=== PATIENT | male | born 1975 | race Caucasian/White ===

== ENCOUNTER 2017-04-13 11:13 | Inpatient (IN) | payer BC, MEDICARE ==
[~2017-04-13] VITALS: Ht 165.1 cm; Wt 108.4 kg
[~2017-04-13 11:13] MED LIST: ASPIR 8181 MG PO; AUGMENTIN 500-1 EACH PO; AUGMENTIN 875875 MG PO; CARVEDILOL12.5 MG PO; CATAPRES-TTS 20.2 MG TOP; CATAPRES0.2 MG; CEFDINIR300 MG; CIPRO250 M1 PO; CIPRO500 M1 PO; CLONIDINE0.1 PO; COLACE100 MG PO; CYCLOBENZAPRINE5 MG PO; DARVOCET-N 1001 EACH PO; DIABETA 5MG TABL5 MG PO; DOXYCYCLINE 10100 MG PO; FIBERCON625 M1 PO; FLEXERIL PO; GLUCOPHAGE1000 MG PO; HYDROCHLOROTHIA25 M1 PO; LASIX 80 MG TAB80 MG PO; LEVAQUIN 250 M250 MG PO; LISINOPRIL10 MG PO; LISINOPRIL20 MG PO; MACROBID 100 M100 M2 PO; MEDROLDOSEPACK; MEDROLDOSEPACK PO; MIRALAX17 GM PO; NOHOMEMEDICATIONS; NORCO 5-325 TA1 EAC1 PO; NORCO 5-325 TA1 EACH PO; NORVASC10 MG PO; PHOSLO667 M1 PO; PREDNISONE 20 M20 MG PO; RENAL CAPS SOFTG1 MG PO; RENVELA800 MG PO; ROBAXIN500 MG PO; TESSALON PERLE100 M1 PO; TRAMADOL 50 MG50 MG PO; VAN500AD IVPB; VELPHORO500 MG PO; VENTOLIN HFA 1818 GM INH; ZPAK PO
[2017-04-13 11:20] VITALS: BP 191/93
[2017-04-13 12:30] LABS: HEMATOCRIT 34.3 % (42.0-52.0); HEMOGLOBIN 11.1 gm/dL (14.0-18.0); MCH 29.3 pg (26.0-34.0); MCHC 32.4 g/dL (28.0-37.0); MCV 90.6 fL (80.0-100.0); MPV 9.2 fl. (7.2-11.1); NUCLEATED RBCS 0 /100WBC; PLATELET COUNT* 220 thou/uL (150-400); RBC 3.78 mil/uL (4.50-6.00); RDW-CV 17.4 % (10.5-14.5); WBC 6.5 thou/uL (4.0-11.0)
[2017-04-13 12:37] LABS: ANION GAP 10 mmol/L (7-16); BUN 35 mg/dL (7-18); CALCIUM 8.8 mg/dL (8.5-10.1); CHLORIDE 95 mmol/L (98-107); CO2 33 mmol/L (21-32); GLUCOSE 126 mg/dL (70-99); SODIUM 138 mmol/L (136-145)
[2017-04-13 12:44] LABS: ALBUMIN 4.1 g/dL (3.4-5.0); ALKALINE PHOSPHATASE 70 U/L (46-116); LIPASE 165 U/L (73-393); SGOT 40 U/L (15-37); SGPT 46 U/L (30-65); TOTAL BILIRUBIN 0.5 mg/dL (<0.1-1.0); TOTAL PROTEIN 8.5 g/dL (6.4-8.2)
[2017-04-13 12:57] LABS: TROPONIN-I LEVEL <0.06 ng/mL (<0.06)
[2017-04-13 13:00] LABS: ABSOLUTE EOSINOPHILS 0.1 thou/uL (0.0-0.7); ABSOLUTE MONOCYTES 1.2 thou/uL (0.0-1.2); ABSOLUTE NEUTROPHILS 4.3 thou/uL (1.6-8.1); PLATELET ESTIMATE ADEQUATE
[2017-04-13 14:22] VITALS: BP 172/86
[2017-04-13 14:39] VITALS: BP 202/55
[2017-04-13 19:30] VITALS: BP 180/94
[2017-04-14] VITALS: BP 137/80
[2017-04-14 04:23] VITALS: BP 167/96
[2017-04-14 08:00] VITALS: BP 187/90
[2017-04-14 11:30] VITALS: BP 174/91
--- NOTE | 2017-04-14 13:35 | EKG ---
[place] [address] ELECTROCARDIOGRAM REPORT Name: MEDNELSAMANTA DELANEY Room: [address] ADM IN .R.#: [id number] Admission: 04/13/17 Attend Phys: Deni Amato, Discharge: Date of : 77 Report #: [id number] THIS REPORT FOR: //name// [facility] ED Test Date: 2017-04-13 Test Time: 12:08:27 Pat Name: SAMANTA OGLESBY Department: Room: [facility] Gender: M Surgery Tech: MIKY : 1975 Requested By: Mary Hopkins Order Number: [id number] MD: Marky Larry Measurements Intervals [place] Rate: 93 P: 44 [place]: 173 QRS: -6 QRSD: 109 T: 64 QT: 387 QTc: 482 Interpretive Statements Sinus rhythm ST elev, probable normal early repol pattern Borderline prolonged QT interval Compared to ECG 12/31/2016 02:43:41 Ventricular premature complex(es) no longer present Electronically Signed On 04-14-2017 13:35:22 MIX HOUSE TENDER by Marky Larry [email or web address] <ELECTRONICALLY SIGNED> By: Marky Larry MD, FACC 04/14/17 1335 1208 1208 Marky Larry MD, [facility] /EPI
[2017-04-14 16:10] VITALS: BP 176/77
[2017-04-14 20:50] VITALS: BP 168/94
[2017-04-15] VITALS: BP 156/60
[2017-04-15 04:00] VITALS: BP 148/71
[2017-04-15 08:00] VITALS: BP 164/86
[2017-04-15 12:03] VITALS: BP 152/81
[2017-04-15 13:40] LABS: CALCIUM 7.8 mg/dL (8.5-10.1); POTASSIUM 4.9 mmol/L (3.5-5.1)
[2017-04-15 13:42] LABS: CREATININE 11.6 mg/dL (0.6-1.3)
[2017-04-15 21:07] VITALS: BP 158/75
[2017-04-16] VITALS: BP 162/66
[2017-04-16 04:00] VITALS: BP 157/73
[2017-04-16 07:30] VITALS: BP 162/80
--- NOTE | 2017-04-16 09:19 | CON ---
[address] [address] CONSULTATION Name: SAMANTA OGLESBY Room: [address] IN ..#: [id number] Admission: 04/13/17 Attend Phys: Deni Amato, Discharge: Date of : 77 Report #: [id number] THIS REPORT FOR: //name// CC: Deni Shannon DATE OF SERVICE: 04/15/2017 HISTORY OF PRESENT ILLNESS: The patient is a 41-year-old male who I was asked to see in the hospital today after he complained of a cough. The history is obtained from the patient and his who was present. He has a long history of hypertension, diabetes, and hyperlipidemia. He is also morbidly obese, standing 5 feet 5 and weighing 250 pounds. Because of diabetes he has developed end-stage renal disease and has been on dialysis. He has a fistula in his left arm. Recently it clotted and he required placement of temporary dialysis catheter. For the past few weeks he has had a cough and nasal congestion, sore throat. He was placed on a Z-WILLIAM recently. However, he started having increasing shortness of breath, so he came to the hospital 2 days ago. I was asked to see him for further evaluation and treatment. He denies a history of coronary artery disease. However, he states that he is now being considered for renal transplant. He underwent a stress test that apparently was abnormal. He saw a healthcare advisory services manager at [facility] and is scheduled to have a heart catheterization electively in the near future. He denies any palpitations or syncope. PAST MEDICAL HISTORY: Otherwise significant for eye surgery, hip surgery. MEDICATIONS: On admission consist of carvedilol, aspirin, Lasix, amlodipine, clonidine. ALLERGIES: He has no known drug allergies. FAMILY HISTORY: Negative for heart disease. SOCIAL HISTORY: He is . He and his live in [place]. 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 Rarely smokes, rarely drinks alcohol. He does have a history of illicit drug use including methamphetamine, cocaine and marijuana, although he no longer abuses drugs. REVIEW OF SYSTEMS: He apparently was told he had a small stroke in the past. No history of asthma. No history of peptic ulcer disease, liver disease, cancer, chronic skin condition. PHYSICAL EXAMINATION: GENERAL: Revealed a large middle-aged male lying in bed, [place] [address] CONSULTATION Name: SAMANTA OGLESBY Room: [address]#: [id number] Admission: 04/13/17 Attend Phys: Deni Amato, Discharge: Date of : 77 Report #: [id number] VITAL SIGNS: He had a blood pressure of 140/70, pulse is 80s, afebrile. HEENT: He was anicteric. Conjunctivae pink. Mucous membranes moist. NECK: Veins difficult to assess due to obesity. CHEST: Clear to auscultation. CARDIAC: Regular rate and rhythm. ABDOMEN: Obese, soft, nontender. EXTREMITIES: No pitting edema. Dorsalis pedis pulse 2+ bilaterally. SKIN: Warm, dry. NEUROLOGIC: Nonfocal. LYMPH: No adenopathy. MUSCULOSKELETAL: No joint effusion. LABORATORY DATA: His ECG shows a sinus rhythm, no ST or T-wave change. His workup, he actually had an echocardiogram done in May of this year that was a transesophageal echocardiogram because of MRSA that showed no evidence of shunt, ejection fraction 55%, no thrombus, structurally normal valves. Previous echocardiogram in 2016 here at [facility] showed ejection fraction 45%, left ventricular hypertrophy, left atrial enlargement, mild mitral regurgitation, small pericardial effusion. His x-rays on admission included a portable chest x-ray that showed cardiomegaly, mild pulmonary vascular congestion. He had lab work, sodium 138, creatinine 7, glucose 126. Liver function studies were normal. Troponin 0.06. BNP 24,000. White blood cell count 6.5, hemoglobin 11.1. IMPRESSION AND RECOMMENDATIONS: 1. Acute on chronic diastolic heart failure. Recommend removing fluid by dialysis. I would recommend better treatment of his hypertension. The patient is currently on a calcium zehra, beta zehra and clonidine patch. 2. End-stage renal disease. The patient on dialysis. 3. Diabetes. 4. History of illicit drug use. The patient no longer abuses drugs. 5. Obesity. <ELECTRONICALLY SIGNED> By: Marky Larry MD, [facility] 04/16/17 0919 1123 [id number] Larry MD, FAC /nt
[2017-04-16] MEDS ORDERED: LEVAQUIN 500 M500 M3 PO (10:00)
--- NOTE | 2017-04-16 11:23 | CON ---
[address] [address] CONSULTATION Name: MENDELSAMANTA BALTAZAR Room: [address] IN .R.#: [id number] Admission: 04/13/17 Attend Phys: Deni Amato, Discharge: Date of : 77 Report #: [id number] THIS REPORT FOR: //name// CC: Deni Shannon CONSULTING PHYSICIAN: Deni Amato MD REASON FOR CONSULTATION: End-stage kidney disease. HISTORY OF PRESENT ILLNESS: A 41-year-old gentleman admitted with shortness of breath, wheezing for the past 2 weeks. He was treated as an outpatient with a Z-WILLIAM, but did not improve. He is currently being evaluated for a kidney transplant and is to have an elective cardiac catheterization as part of that workup process. He has been seen by Cardiology here and had some evidence of acute on chronic diastolic heart failure and evidence of fluid overload. He was dialyzing on consecutive days as an outpatient in order to help get him down to his dry weight. He did miss his dialysis on Saturday because he was not feeling well and was in the hospital. Presently he does not have any other complaints. REVIEW OF SYSTEMS: Constitutional, psych, heme, eyes, ENT, respiratory, cardiac, GI, , endocrine, all negative except as documented above. PAST MEDICAL HISTORY: End-stage kidney disease, on in-center hemodialysis, was previously on home hemodialysis, diabetes, hypertension, dyslipidemia. PAST SURGICAL HISTORY: History of right hip fracture. SOCIAL HISTORY: No tobacco. FAMILY HISTORY: His grandmother had kidney disease and was on dialysis. MEDICATIONS: Reviewed. PHYSICAL EXAMINATION: VITAL SIGNS: Blood pressure 152/81, pulse 79, temperature 36.3. GENERAL: No acute distress. EYES: Extraocular movements intact. EARS: Externally normal. CARDIOVASCULAR: Regular rate. LUNGS: Diminished breath sounds. LYMPHATICS: Positive edema. PSYCHIATRIC: Awake, alert. LABORATORY DATA: White cell count 6.5, hemoglobin 11.1, platelets 220. Labs have not been done today. Previous lab work showed sodium 138, potassium 4, chloride 95, bicarbonate 33, BUN 35, creatinine 7, glucose 126, calcium 8.8. [place] [address] CONSULTATION Name: SAMANTA OGLESBY Room: [address]#: [id number] Admission: 04/13/17 Attend Phys: Deni Amato, Discharge: Date of : 77 Report #: [id number] ASSESSMENT AND PLAN: 1. End-stage kidney disease, hemodialysis Saturday, Saturday and Saturday. We will dialyze today and fluid as tolerated. 2. Fluid overload. We will ultrafilter with dialysis as tolerated. 3. History of hypertension. 4. History of diabetes. Thank you for requesting my opinion in the care and management of this patient. <ELECTRONICALLY SIGNED> By: Jovita Beckford MD 04/16/17 1123 1302 1711Abid Román Castrejon MD /nt
[2017-04-16 11:57] VITALS: BP 172/70
--- NOTE | 2017-04-16 17:44 | 2DMMODE ---
[place] [address] 2 D/M-MODE ECHOCARDIOGRAM Name: SAMANTA OGLESBY DELANEY Room: [address] IN [facility]#: [id number] Admission: 04/13/17 Attend Phys: Deni Rojas Discharge: 04/16/17 Date of : 77 Date of Service: 04/16/17 1744 Report #: [id number] THIS REPORT FOR: //name// APPROVED REPORT Study performed: 04/16/2017 15:45:59 EXAM: Comprehensive 2D, Doppler, and color-flow Echocardiogram Patient Location: In-Patient Room #: [facility] Status: routine BSA: 2.13 HR: 78 bpm BP: 172/70 mmHg Rhythm: NSR Other Information Study Quality: Good Indications Congestive Heart Failure 2D Dimensions LVEF(%): 33.76 (>50%) IVSd: 15.80 (7-11mm) LVOT Diam: 21.04 (18-24mm) LVDd: 63.67 mm PWd: 11.49 (7-11mm) Ascending Ao: 31.20 (22-36mm) LVDs: 53.20 (25-40mm) Aortic Root: 33.57 mm Smith's LVEF: 33.76 % Volumes Left Atrial Volume (Systole) LA ESV Index: 64.70 mL/m2 Aortic Valve AoV Peak Nam.: 1.26 m/s AO Peak Gr.: 6.39 mmHg LVOT Max P.78 mmHg AO Mean Gr.: 4.06 mmHg LVOT Mean P.94 mmHg LVOT Max V: 0.97 m/s AO V2 VTI: 27.73 cm LVOT Mean V: 0.64 m/s NAMAN (VTI): 2.96 cm2 LVOT V1 VTI: 23.60 cm Mitral Valve E/A Ratio: 1.56 [place] [address] 2 D/M-MODE ECHOCARDIOGRAM Name: SAMANTA OGLESBY Room: [address] IN [facility].#: [id number] Admission: 04/13/17 Attend Phys: Deni Rojas Discharge: 04/16/17 Date of : 77 Date of Service: 04/16/17 1744 Report #: [id number] MV Decel. Time: 196.83 ms MV E Max Nam.: 1.03 m/s MV PHT: 57.08 ms MVA (PHT): 3.85 cm2 TDI E/Lateral E': 10.30 E/Medial E': 14.71 Medial E' Nam.: 0.07 m/s Lateral E' Nam.: 0.10 m/s Pulmonary Valve PV Peak Nam.: 0.83 m/s PV Peak Gr.: 2.76 mmHg Tricuspid Valve TR Peak Gr.: 26.73 mmHg RVSP: 31.00 mmHg Left Ventricle The left ventricle is normal size. There is normal LV segmental wall motion. Mild concentric left ventricular hypertrophy. Left ventricular systolic function is normal. The left ventricular ejection fraction is within the normal range. LVEF is 50-55%. The left ventricular diastolic function is normal. Right Ventricle The right ventricle is normal size. The right ventricular systolic function is normal. Atria Left atrium is severely dilated. The right atrium size is normal. Aortic Valve The aortic valve is normal in structure. No aortic regurgitation is present. There is no aortic valvular stenosis. Mitral Valve The mitral valve is normal in structure. Moderate mitral regurgitation. No evidence of mitral valve stenosis. Tricuspid Valve The tricuspid valve is normal in structure. Mild tricuspid regurgitation. The RVSP is 30-35 mmHg. Pulmonic Valve The pulmonary valve is normal in structure. Mild pulmonic [place] [address] 2 D/M-MODE ECHOCARDIOGRAM Name: SAMANTA OGLESBY Room: [address] IN M.R.#: [id number] Admission: 04/13/17 Attend Phys: Deni Rojas Discharge: 04/16/17 Date of : 77 Date of Service: 04/16/17 1744 Report #: [id number] Great Vessels The aortic root is normal in size. IVC is normal in size and collapses with >50% inspiration Pericardium Trace pericardial effusion. <Conclusion> LVEF is 50-55%. There is normal LV segmental wall motion. There is normal LV segmental wall motion. Mild concentric left ventricular hypertrophy. Trace pericardial effusion. There is no aortic valvular stenosis. No aortic regurgitation is present Moderate mitral regurgitation. No evidence of mitral valve stenosis. Mild tricuspid regurgitation. The RVSP is 30-35 mmHg. <ELECTRONICALLY SIGNED> By: Michael Sarabia MD, FACC 04/16/17 1744 1744 1744 Michael Sarabia MD, FACC /INF
== END 2017-04-16 16:54 | disposition home or self-care (01) | DRG 291 ==
LOC: M.ERS 11:13 → M.2W 13:33 → M.TBA-ER 13:33 → M.2W 14:28
PROVIDERS: Internal Medicine Nephrology; Physician Assistant; ADMIT Family Medicine
PROC: 5A1D70Z Performance of Urinary Filtration, Intermittent, Less than 6 Hours Per Day (ICD-10-PCS; principal; 2017-04-15)
DX: I13.2 Hypertensive heart and chronic kidney disease with heart failure and with stage 5 chronic kidney disease, or end stage renal disease (principal); I50.43 Acute on chronic combined systolic (congestive) and diastolic (congestive) heart failure; N18.6 End stage renal disease; E11.22 Type 2 diabetes mellitus with diabetic chronic kidney disease; E78.5 Hyperlipidemia, unspecified; E66.01 Morbid (severe) obesity due to excess calories; J20.9 Acute bronchitis, unspecified; Z84.1 Family history of disorders of kidney and ureter; Z82.49 Family history of ischemic heart disease and other diseases of the circulatory system; Z86.14 Personal history of Methicillin resistant Staphylococcus aureus infection; Z99.2 Dependence on renal dialysis; Z68.39 Body mass index [BMI] 39.0-39.9, adult; Z79.899 Other long term (current) drug therapy

== ENCOUNTER → 2017-06-19 | Outpatient (CLI) | payer BC ==
[~2017-06-19] VITALS: Ht 165.1 cm; Wt 114.8 kg
[~2017-06-19] MED LIST changes: +CARDIZEM CD120 MG PO; +LEVAQUIN 500 M500 M3 PO; +LIPITOR10 MG PO; +PACERONE 200 M200 M1 PO; +VANCOMYCIN500 MG/VIA IV; +VANCOMYCIN750 MG/151 IV
[2017-06-19 08:06] LABS: HEMATOCRIT 33.5 % (42.0-52.0); HEMOGLOBIN 11.2 gm/dL (14.0-18.0); MCH 29.8 pg (26.0-34.0); MCHC 33.4 g/dL (28.0-37.0); MCV 89.1 fL (80.0-100.0); MPV 9.3 fl. (7.2-11.1); RBC 3.76 mil/uL (4.50-6.00); RDW-CV 17.2 % (10.5-14.5); WBC 9.4 thou/uL (4.0-11.0)
[2017-06-19 08:17] VITALS: BP 180/82
[2017-06-19 08:22] LABS: ANION GAP 14 mmol/L (7-16); BUN 80 mg/dL (7-18); CALCIUM 8.5 mg/dL (8.5-10.1); CHLORIDE 99 mmol/L (98-107); CO2 26 mmol/L (21-32); CREATININE 10.3 mg/dL (0.6-1.3); GLUCOSE 124 mg/dL (70-99); POTASSIUM 5.7 mmol/L (3.5-5.1); SODIUM 139 mmol/L (136-145)
[2017-06-19 08:26] LABS: ALBUMIN 3.9 g/dL (3.4-5.0); ALKALINE PHOSPHATASE 90 U/L (46-116); CHOLESTEROL 116 mg/dL (<200); HDL CHOLESTEROL 36 mg/dL (>40); INR 1.1; LDL CHOLESTEROL 68 mg/dL (<100); PROTIME 10.7 Seconds (9.20-11.50); SERUM ASSESSMENT Clear; SGOT 20 U/L (15-37); SGPT 28 U/L (30-65); TC:HDL 3.2 Ratio (Not establshd); TOTAL BILIRUBIN 0.4 mg/dL (<0.1-1.0); TOTAL PROTEIN 8.5 g/dL (6.4-8.2); TRIGLYCERIDE 62 mg/dL (<150); VLDL 12 mg/dL (<40)
[2017-06-19 10:31] LABS: CALCIUM 8.1 mg/dL (8.5-10.1); CREATININE 10.6 mg/dL (0.6-1.3)
[2017-06-19 10:32] LABS: POTASSIUM 6.4 mmol/L (3.5-5.1)
[2017-06-19 10:35] VITALS: BP 156/91
[2017-06-19 10:36] LABS: ALBUMIN 3.3 g/dL (3.4-5.0); TOTAL BILIRUBIN 0.5 mg/dL (<0.1-1.0); TOTAL PROTEIN 7.3 g/dL (6.4-8.2)
--- NOTE | 2017-06-19 10:51 | EKG ---
[place] [address] ELECTROCARDIOGRAM REPORT Name: SAMANTA OGLESBY Room: [facility]#: [id number] Admission: 06/19/17 Attend Phys: Marky Larry MD, F Discharge: Date of : 77 Report #: [id number] THIS REPORT FOR: //name// [facility] Test Date: 2017-06-19 Test Time: 08:05:21 Pat Name: SAMANTA OGLESBY Department: Room: Gender: Staff Attorney: : 1975 Requested By: Marky Larry Order Number: [id number] Garcia MD: Marky Larry Measurements Intervals [place] Rate: 78 P: 24 VT: 145 QRS: -6 QRSD: 105 T: 81 QT: 401 QTc: 457 Interpretive Statements Sinus rhythm Compared to ECG 04/13/2017 12:08:27 no change Electronically Signed On 06-19-2017 10:51:12 TRAINMAN by Marky Larry [email or web address] <ELECTRONICALLY SIGNED> By: Marky Larry MD, [facility] 06/19/17 1051 08 08 Marky Larry MD, FACC /EPI
[2017-06-19 11:07] VITALS: BP 192/83
[2017-06-19 11:18] VITALS: BP 180/83
--- NOTE | 2017-06-20 11:14 | CARD ---
[address] [address] CARDIAC CATH REPORT Name: SAMANTA OGLESBY Room: [facility] BurchFayeChanelFaye#: [id number] Admission: 06/19/17 Attend Phys: Marky Larry MD, F Discharge: Date of : 77 Report #: [id number] THIS REPORT FOR: //name// APPROVED REPORT Patient Details Patient Status: Out-Patient Room #: The patient is a 41 year-old male Event Personnel Marky Larry Senior Radiation Therapist, Renu Galvez RN RN, Deedee Langston RN Monitor, Eliazar Holder (R) Scrub Procedures Performed cathArt Access - R radial artery Left Heart Cath w/or w/o Coronaries Hemostasis with Hemoband Indication Positive stress test, Pre-op clearance Risk Factors Obesity, Hypertension Admission/Lab Medications/Medications given during procedure Heparin Unfract. Procedure Narrative The patient was brought electively to the Cardiac Catheterization Laboratory and was prepped and draped in a sterile manner. The right wrist was infiltrated with 1% Lidocaine subcutaneous anesthesia. A 6 fr sheath was inserted into the right radial artery. Coronary angiography was performed using coronary diagnostic catheters. The right coronary system was accessed and visualized with a Diagnostic catheter. The left coronary system was accessed and visualized with a Diagnostic catheter. The left ventricle was accessed and visualized with a Diagnostic catheter. Left ventriculogram was performed in CISNEROS projection. Closure device was deployed with a 6 Fr vascband. The patient tolerated the procedure well and there were no complications associated with the procedure. There was no hematoma. Intraoperative Conscious Sedation Fentanyl 50.0 mcg Versed 4 mg Fluoro Time: 3.6 minutes Dose: DAP 57767 cGycm2 1322 [place] [address] CARDIAC CATH REPORT Name: SAMANTA OGLESBY Room: [facility]#: [id number] Admission: 06/19/17 Attend Phys: Marky Larry MD, F Discharge: Date of : 77 Report #: [id number] Contrast Type and Amount: Visipaque 180 ml Coronary Angiography The patient's coronary anatomy is co- dominant. [place] Artery Percent Stenosis Left Main: 0 % Prox LAD: 0 % Mid/Distal LAD: 40 % Circumflex: 30 % RCA: 0 % Ramus: % Left Ventriculography The left ventricle is normal in size with normal contractility. The left ventricular ejection fraction is estimated to be 45-50%. Left ventricular wall motion abnormalities are not present. There is 1+ mitral insufficiency. Hemodynamics The aortic pressure is 129/78 mmHg with a mean of 102 mmHg. The left ventricular pressure is 115/27 mmHg with a mean of mmHg. The left ventricular end diastolic pressure is 30 mmHg. There was no gradient across the aortic valve upon pullback. Pullback from the left ventricle to the aorta revealed no gradient across the aortic valve. Conclusion 1. minimal cad 2. suspect false postivie nuclear stress test Recommendations Aggressive Medical Therapy <ELECTRONICALLY SIGNED> By: Marky Larry MD, FACC 06/20/17 1114 1114 1114Dkaz Larry MD, FAC /INF
--- NOTE | 2017-06-20 17:48 | H ---
[place] [address] HISTORY AND PHYSICAL Name: SAMANTA OGLESBY Room: [facility]#: [id number] Admission: 06/19/17 Attend Phys: Marky Larry MD, F Discharge: Date of : 77 Report #: [id number] THIS REPORT FOR: //name// CC: Tyesha Larry DATE OF SERVICE: 06/19/2017 HISTORY OF PRESENT ILLNESS: The patient is a 41-year-old male who was brought to the outpatient department to undergo diagnostic cardiac catheterization. The patient developed end-stage renal disease secondary to hypertension and diabetes several years ago. He had a fistula placed in the left arm. He has had previous clot in the fistula and had a temporary dialysis catheter placed one time. He was actually admitted to [place] in April with shortness of breath and cough. The patient is being considered for a kidney transplant at [facility]. As part of his pretransplant evaluation, he saw a rail track layer at [facility] and underwent a nuclear stress test apparently. This was abnormal. He was told he would need a cardiac catheterization prior to his renal transplant. I have been following the patient in the cardiology clinic here at [place]. The patient stays active at work. Denies history of myocardial infarction or chest pain. He does get short of breath if he exerts himself, but has had no palpitation, syncope, edema. The patient was told he would need to lose approximately 30 pounds prior to undergoing a kidney transplant. He recently saw a surgeon for possible bariatric surgery. However, before the surgery, the patient would require cardiac evaluation. Because of his abnormal stress test, I recommended he undergo cardiac catheterization. PAST MEDICAL HISTORY: Otherwise significant for eye surgery, hip surgery, fistula implantation. He has a history of hypertension, diabetes, glucose intolerance, sleep apnea. MEDICATIONS: Consists of amlodipine, Lipitor, carvedilol, clonidine patch, furosemide. He takes an aspirin a day. ALLERGIES: He has no known drug allergies. FAMILY HISTORY: Negative for heart disease. SOCIAL HISTORY: He is . He and his live in [place]. 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 Rarely smokes. Rarely drinks alcohol. History of illicit drug use including methamphetamine, cocaine, marijuana, although he no longer abuses drugs. REVIEW OF SYSTEMS: He does have a history of obesity and is currently 5 feet [address] [place] [address] HISTORY AND PHYSICAL Name: SAMANTA OGLESBY Room: [facility]#: [id number] Admission: 06/19/17 Attend Phys: Marky Larry MD, F Discharge: Date of : 77 Report #: [id number] inches and weighs 267 pounds with a BMI of 44. He was told he had a small stroke in the past. No history of asthma. He has sleep apnea. No history of peptic ulcer disease, liver disease, cancer, chronic skin condition, psychiatric illness. PHYSICAL EXAMINATION: GENERAL: Revealed a large young Latin-Malagasy male who appeared in no distress. VITAL SIGNS: Blood pressure 160/80, pulse is 80. Mucous members moist. HEENT: He is anicteric, conjunctiva pink. NECK: Veins do not appear distended. CHEST: Clear to auscultation. CARDIAC: Regular rate and rhythm. ABDOMEN: Obese, soft, nontender. EXTREMITIES: Had no edema. Dorsalis pedis pulse 3+ bilaterally. SKIN: Warm, dry. NEUROLOGIC: Nonfocal. LABORATORY DATA: Echocardiogram done in 03/2017 showed ejection fraction 50%. Left ventricular hypertrophy, trace pericardial effusion, moderate mitral regurgitation, mild tricuspid insufficiency. IMPRESSION AND RECOMMENDATIONS: 1. Abnormal nuclear stress test. Risk factors, coronary artery disease. No history of angina. Recommend cardiac catheterization prior to elective surgery. Discussed indications, alternatives and risks of the procedure with the patient and he agreed to proceed. 2. Hypertension. The patient is on a calcium zehra, clonidine, beta zehra. 3. Hyperlipidemia. The patient is on a statin drug. 4. End-stage renal disease. The patient is on dialysis. 5. Glucose intolerance. The patient no longer on insulin. 6. History of illicit drug use. The patient no longer abuses drugs. 7. Obesity. The patient is scheduled for bariatric surgery. I would hold off an elective surgery until after his cardiac catheterization. <ELECTRONICALLY SIGNED> By: Marky Larry MD, [facility] 06/20/17 1748 0824 [id number] Larry MD, FAC /nt
== END | disposition home or self-care (01) ==
LOC: M.CL 07:33
PROVIDERS: Internal Medicine Cardiovascular Disease
DX: I25.10 Atherosclerotic heart disease of native coronary artery without angina pectoris (principal); I13.2 Hypertensive heart and chronic kidney disease with heart failure and with stage 5 chronic kidney disease, or end stage renal disease; I50.9 Heart failure, unspecified; N18.6 End stage renal disease; E11.22 Type 2 diabetes mellitus with diabetic chronic kidney disease; E66.09 Other obesity due to excess calories; E78.5 Hyperlipidemia, unspecified; G47.33 Obstructive sleep apnea (adult) (pediatric); Z79.899 Other long term (current) drug therapy; Z79.82 Long term (current) use of aspirin; Z68.41 Body mass index [BMI] 40.0-44.9, adult; Z98.890 Other specified postprocedural states

== ENCOUNTER 2017-07-29 11:07 | Inpatient (IN) | payer BC, MEDICARE ==
[~2017-07-29] VITALS: Ht 165.1 cm; Wt 115.7 kg
[~2017-07-29 11:07] MED LIST changes: -CARDIZEM CD120 MG PO; -LIPITOR10 MG PO; -PACERONE 200 M200 M1 PO; -VANCOMYCIN500 MG/VIA IV; -VANCOMYCIN750 MG/151 IV
[2017-07-29 11:19] VITALS: BP 142/66
[2017-07-29 11:39] LABS: HEMATOCRIT 36.4 % (42.0-52.0); MCH 30.1 pg (26.0-34.0); MCHC 33.1 g/dL (28.0-37.0); MCV 90.9 fL (80.0-100.0); MPV 8.8 fl. (7.2-11.1); NUCLEATED RBCS 0 /100WBC; PLATELET COUNT* 152 thou/uL (150-400); RDW-CV 16.9 % (10.5-14.5); WBC 16.4 thou/uL (4.0-11.0)
[2017-07-29 11:47] LABS: ANION GAP 11 mmol/L (7-16); BUN 22 mg/dL (7-18); CALCIUM 8.9 mg/dL (8.5-10.1); CHLORIDE 93 mmol/L (98-107); CO2 31 mmol/L (21-32); CREATININE 5.6 mg/dL (0.6-1.3); GLUCOSE 112 mg/dL (70-99); POTASSIUM 3.8 mmol/L (3.5-5.1); SODIUM 135 mmol/L (136-145)
[2017-07-29 12:05] LABS: ALBUMIN 3.9 g/dL (3.4-5.0); ALKALINE PHOSPHATASE 113 U/L (46-116); AMYLASE 79 U/L (25-115); LIPASE 104 U/L (73-393); NT-PRO BRAIN NAT PEPTIDE > 35000 pg/mL (<300); SGOT 63 U/L (15-37); SGPT 87 U/L (30-65); TOTAL BILIRUBIN 0.7 mg/dL (<0.1-1.0); TOTAL PROTEIN 8.9 g/dL (6.4-8.2)
[2017-07-29 12:20] LABS: ABSOLUTE LYMPHOCYTES 0.8 thou/uL (0.8-5.3); ABSOLUTE MONOCYTES 0.8 thou/uL (0.0-1.2); ABSOLUTE NEUTROPHILS 14.8 thou/uL (1.6-8.1); PLATELET ESTIMATE ADEQUATE
[2017-07-29 15:11] VITALS: BP 141/76
[2017-07-29 15:42] VITALS: BP 135/50
--- NOTE | 2017-07-29 16:17 | NUR ---
PATIENT CAME TO THE FLOOR VIA CART FROM THE ER IN STABLE CONDITION. COMPLAINS OF PAIN, NAUSEA AND LOOSE STOOLS. PATIENT IS UP AD PAIGE ROOM. WEARS 2 LITERS AT NIGHT. VITAL SIGNS STABLE. HAD DIALYSIS THIS MORNING BEFORE ADMISSION. ADMISSION ASSESSMENT AND EDUCATION DONE, QUESTIONS ANSWERED FOR PATIENT AND PARENTS WILL CONTINUE TO MONITOR.
--- NOTE | 2017-07-29 17:45 | NUR ---
PATIENT IS ALERT AND ORIENTED, PLEASANT. VITAL SIGNS STABLE ON ROOM AIR. SALIN LOCKED IV IN RIGHT AC, WITH DIALYSIS FISTULA IN LEFT FOREARM. PATIENT IS UP AD PAIGE ROOM. CALL LIGHT IS IN REACH. WILL CONTINUE TO MONITOR.
[2017-07-29 19:40] VITALS: BP 158/56
--- NOTE | 2017-07-30 00:29 | NUR ---
DURING ASSESSMENT AT BEGINING OF SHIFT, PTS O2 SAT WAS 66% ON ROOM AIR, PT ALERT AND ORIENTED AND LETHARGIC, BUT ABLE TO ANSWER QUESTIONS. O2 SAT CHECKED ON A 2ND MACHINE READING THE SAME, WITH GOOD PLETH, FINGERS WARM TO TOUCH. PT PLACED ON 2L NC, O2 SAT FLUCTUATING BETWEEN 80-93%. O2 TURNED UP TO 3L NC TO KEEP O2 SAT ABOVE 92%. PT PLACED ON CONTINOUS PULSE OX. PT GOT UP TO USE BATHROOM, REMOVED OXYGEN. WHEN PT GOT BACK IN BED AND HOOKED BACK UP, O2 SAT WAS STAYING IN LOW 70'S UNTIL O2 WAS BACK ON. PT EDUCATED TO KEEP O2 ON, RT CALLED FOR EXTENTION TUBING FOR OXYGEN.
[2017-07-30 03:09] LABS: CALCIUM 8.2 mg/dL (8.5-10.1); MAGNESIUM 2.2 mg/dL (1.8-2.4); POTASSIUM 4.4 mmol/L (3.5-5.1)
[2017-07-30 03:10] LABS: HEMOGLOBIN 10.9 gm/dL (14.0-18.0); MCH 30.3 pg (26.0-34.0); MCV 91.6 fL (80.0-100.0); MPV 9.3 fl. (7.2-11.1); RBC 3.61 mil/uL (4.50-6.00); RDW-CV 16.1 % (10.5-14.5); WBC 11.4 thou/uL (4.0-11.0)
[2017-07-30 03:41] VITALS: BP 157/78
--- NOTE | 2017-07-30 05:18 | NUR ---
PT SLEPT ON AND OFF THIS SHIFT. ASSESSMENT DOCUMENTED. MEDS GIVEN PER E-JUN. PT REPORTED ABDOMINAL PAIN, TYLENOL GIVEN PER E-JUN. IV PATENT. LAB RESULT RECIEVED FOR POSITIVE BLOOD CULTURES, DR NOTIFIED, ORDERS RECIEVED. O2 SAT MAINTAINED ABOVE 90% FOR REMAINDER OF SHIFT. WILL CONTINUE WITH PLAN OF CARE.
[2017-07-30 08:29] VITALS: BP 178/69
[2017-07-30 10:09] LABS: HEPATITIS B SURFACE AG Negative (Negative)
--- NOTE | 2017-07-30 10:29 | NUR ---
CM SPOKE TO THE PATIENT TO DISCUSS HOME SITUATION, DISCHAGRE PLANNING, AND TO INFORM OF THE ROLE OF CM. PATIENT INDEPENDENT AND ACTIVE PRIOR TO ADMISSION. PATIENT WORKS OUTSIDE THE HOME. PATIENT RESIDES AT HOME WITH SPOUSE AND CHILDREN. PATIENT HAS HOME 02 PROVIDED BY [facility]. PATIENT HAS HD AT [facility] (--). PATIENT HAS NO HX OF HH OR SNF. PATIENT PLANS TO RETURN HOME AT D/C. CM WILL REMAIN AVAILABLE TO ASSIST AND FOLLOW NEEDED. [facility] PHONE: [phone] FAX: [phone]
[2017-07-30 15:51] VITALS: BP 123/57
--- NOTE | 2017-07-30 16:28 | NUR ---
PRN TYLENOL GIVEN FOR COMPLAINT OF BACK PAIN, GOOD RELIEF NOTED. IV ABX INFUSED THIS AM ORDERED. UP AD PAIGE AROUND ROOM. PATIENT ON 1.5L NC, PATIENT DESATS WHEN ON RA. DR. BELLO MADE AWARE. PATIENT UP AND SHOWERED THIS AM WITHOUT DIFFICULTY. NEPHROLOGY AND ID CONSULTED AND PATIENT SEEN TODAY BY EACH.
[2017-07-30 21:34] VITALS: BP 125/52
[2017-07-31 05:23] LABS: CALCIUM 7.6 mg/dL (8.5-10.1); POTASSIUM 4.5 mmol/L (3.5-5.1)
[2017-07-31 05:47] LABS: CREATININE 10.4 mg/dL (0.6-1.3)
--- NOTE | 2017-07-31 06:08 | NUR ---
PATIENT SLEPT MOST OF THE NIGHT. PATIENT WAS GIVEN TYLENOL FOR PAIN ONCE WITH GOOD RELIEF. IV REMAINS SALINE LOCKED. PATIENT SHOULD GET DIALYSIS TODAY. WILL CONTINUE TO MONITOR.
[2017-07-31 07:45] VITALS: BP 141/60
--- NOTE | 2017-07-31 11:21 | CON ---
[address] [address] CONSULTATION Name: MENDELSAMANTA DELANEY Room: [address] IN M.R.#: [id number] Admission: 07/29/17 Attend Phys: Manfred Martin MD Discharge: Date of : 77 Report #: [id number] THIS REPORT FOR: //name// CC: Cristofer Martin DATE OF SERVICE: 07/30/2017 ATTENDING PHYSICIAN: Dr. Martin. REASON FOR EVALUATION: Staphylococcal septicemia. HISTORY OF PRESENT ILLNESS: Chart reviewed, patient examined. This is a 41-year-old gentleman with end-stage renal disease, on hemodialysis; complication of diabetes mellitus type 2, hypertension, who has been hospitalized previously with infection related complications. He noted over the course of last 24-48 hours, had been feeling worse, nausea with emesis. It was fairly refractory. He did go to dialysis and recommended he be admitted and have some temperature elevations. Blood cultures were collected now 05/17 with Gram-positive cocci, awaiting ID and susceptibility. He was empirically dosed with vancomycin as well as ciprofloxacin. He is not encephalopathic. He does have a fistula in the left forearm that appears to be functioning well. He is not tender there. He does make a small amount of the urine. Chest x-ray was otherwise unrevealing. ALLERGIES: None known. MEDICATIONS: Include clonidine, vancomycin, amlodipine, furosemide, calcium, aspirin, insulin, carvedilol, p.r.n. analgesics, antiemetics. PAST MEDICAL HISTORY: As noted above, history of cardiomyopathy with congestive heart failure. SOCIAL HISTORY: Nonsmoker, no ethanol. FAMILY HISTORY: Noncontributory. REVIEW OF SYSTEMS: As above. Denies any pulmonary related complaints. Nausea seems to have eased. PHYSICAL EXAMINATION: GENERAL: Appears fairly well nourished, pleasant, cooperative, in mild distress. VITAL SIGNS: Temperature 98, T-max 100.1. Pulse 90, respirations 20, blood pressure 178/69. SKIN: Warm, [place] [address] CONSULTATION Name: MENDELSAMANTAESSIE BALTAZAR Room: [address]#: [id number] Admission: 07/29/17 Attend Phys: Manfred Martin MD Discharge: Date of : 77 Report #: [id number] HEENT: Otherwise, unremarkable. NECK: Supple. LUNGS: Diminished with clear breath sounds. HEART: Regular. I do not appreciate any murmur. ABDOMEN: Soft, nontender, nondistended. LEFT FOREARM: There is no particular tenderness. He has a dressing over. GENITOURINARY: Deferred. RECTAL: Deferred. LABORATORY DATA: Acute hepatitis panel was negative. CBC: White count 11.4, H and H 10.9 and 33.0, platelets 149. Lactic acid 0.7, sodium 131, potassium 4.4, chloride 92, bicarbonate is 26. BUN and creatinine 47 and 8.0, glucose of 104. Blood cultures, 2/2 gram-positive cocci consistent with staph. CT of abdomen and pelvis nothing to explain the fevers though within the ascending colon. Chest x-ray, no acute process. ASSESSMENT: Gram-positive septicemia, likely Staphylococcus, presume a skin source. We will await I and D. Continue the vancomycin for the moment. We would check a urinalysis as well. At this point, clinical deterioration. She is on the antibiotics. We need to investigate. We will repeat blood cultures likely tomorrow. <ELECTRONICALLY SIGNED> By: Geovanny Orourke MD 07/31/17 1121 1146 1206Jogil Orourke MD /nt
[2017-07-31 16:00] VITALS: BP 160/59
--- NOTE | 2017-07-31 16:16 | NUR ---
PATIENT HAD DIALYSIS THIS SHIFT. NO COMPLAINTS OF PAIN. IV VANC TO INFUSE THIS EVENING PER ID ORDERS. UP AD PAIGE IN ROOM. BLOOD SUGARS WITHIN NORMAL LIMITS. PATIENT HOPING TO GO HOME SOON.
--- NOTE | 2017-07-31 16:46 | 2DMMODE ---
[place] [address] 2 D/M-MODE ECHOCARDIOGRAM Name: SAMANTA OGLESBY DELANEY Room: [facility] IN [facility]#: [id number] Admission: 07/29/17 Attend Phys: Manfred Martin, Discharge: Date of : 77 Date of Service: 07/31/17 1646 Report #: [id number] THIS REPORT FOR: //name// APPROVED REPORT Study performed: 07/31/2017 14:56:49 EXAM: Comprehensive 2D, Doppler, and color-flow Echocardiogram Patient Location: In-Patient Room #: 311 Status: routine BSA: 2.19 HR: 82 bpm BP: 141/60 mmHg Rhythm: NSR Other Information Study Quality: Good Indications Sepsis 2D Dimensions LVEF(%): 48.06 (>50%) IVSd: 16.64 (7-11mm) LVOT Diam: 22.73 (18-24mm) LVDd: 64.09 mm PWd: 15.20 (7-11mm) Ascending Ao: 35.50 (22-36mm) LVDs: 48.22 (25-40mm) Aortic Root: 35.78 mm Smith's LVEF: 48.06 % Volumes Left Atrial Volume (Systole) LA ESV Index: 56.50 mL/m2 Aortic Valve AoV Peak Nam.: 1.61 m/s AO Peak Gr.: 10.33 mmHg LVOT Max P.07 mmHg AO Mean Gr.: 5.79 mmHg LVOT Mean P.96 mmHg LVOT Max V: 1.23 m/s AO V2 VTI: 29.79 cm LVOT Mean V: 0.79 m/s NAMAN (VTI): 3.62 cm2 LVOT V1 VTI: 26.54 cm Mitral Valve E/A Ratio: 1.24 [place] [address] 2 D/M-MODE ECHOCARDIOGRAM Name: SAMANTA OGLESBY Room: [address] IN .R.#: [id number] Admission: 07/29/17 Attend Phys: Manfred Martin, Discharge: Date of : 77 Date of Service: 07/31/17 1646 Report #: [id number] MV Decel. Time: 225.84 ms MV E Max Nam.: 1.04 m/s MV PHT: 65.49 ms MVA (PHT): 3.36 cm2 TDI E/Lateral E': 10.40 E/Medial E': 13.00 Medial E' Nam.: 0.08 m/s Lateral E' Nam.: 0.10 m/s Pulmonary Valve PV Peak Nam.: 1.01 m/s PV Peak Gr.: 4.09 mmHg Tricuspid Valve TR Peak Gr.: 39.47 mmHg RVSP: 44.00 mmHg Left Ventricle The left ventricle is normal size. There is normal LV segmental wall motion. Mild concentric left ventricular hypertrophy. Left ventricular systolic function is borderline. LVEF is 50-55%. The left ventricular diastolic function is normal. Right Ventricle The right ventricle is normal size. The right ventricular systolic function is normal. Atria Left atrium is mildly dilated. The right atrium size is normal. Aortic Valve The aortic valve is normal in structure. No aortic regurgitation is present. There is no aortic valvular stenosis. Mitral Valve The mitral valve is normal in structure. Mild mitral regurgitation. No evidence of mitral valve stenosis. Tricuspid Valve The tricuspid valve is normal in structure. Trace tricuspid regurgitation. The RVSP is 40-45 mmHg. Pulmonic Valve The pulmonary valve is normal in structure. There is no pulmonic [place] [address] 2 D/M-MODE ECHOCARDIOGRAM Name: SAMANTA OGLESBY Room: [address] IN [facility]#: [id number] Admission: 07/29/17 Attend Phys: Manfred Martin, Discharge: Date of : 77 Date of Service: 07/31/17 1646 Report #: [id number] Great Vessels The aortic root is normal in size. IVC is normal in size and collapses with >50% inspiration Pericardium Mild circumferential pericardial effusion. <Conclusion> The left ventricle is normal size. Mild concentric left ventricular hypertrophy. Left ventricular systolic function is borderline. LVEF is 50-55%. The left ventricular diastolic function is normal. The right ventricle is normal size. Left atrium is mildly dilated. The aortic valve is normal in structure. The mitral valve is normal in structure. Mild mitral regurgitation. The tricuspid valve is normal in structure. Trace tricuspid regurgitation. The RVSP is 40-45 mmHg. IVC is normal in size and collapses with >50% inspiration Mild circumferential pericardial effusion. There is normal LV segmental wall motion. <ELECTRONICALLY SIGNED> By: Austin Spencer MD, FACC 07/31/171645 45 45 Austin Spencer MD, FACC /INF
[2017-07-31 22:53] VITALS: BP 184/73
--- NOTE | 2017-08-01 05:43 | NUR ---
PATIENT SLEPT MOST OF THE NIGHT. IV REMAINS SALINE LOCKED. PATIENT HAD NO COMPLAINTS OF PAIN. OXYGEN REMAINS AT 2L PER NASAL CANNULA. WILL CONTINUE TO MONITOR.
[2017-08-01 08:00] VITALS: BP 119/80
[2017-08-01 16:56] VITALS: BP 162/79
[2017-08-01 19:30] VITALS: BP 150/85
--- NOTE | 2017-08-01 20:10 | NUR ---
ASSUMED CARE THIS AM, UP AD PAIGE, DENIES PAIN, DANIEL DIET, MEDS, CARES WELL. PROGRESSING TOWARD DISCHARGE GOALS, VOICES NEEDS WITHOUT DIFFICULTY, CONT POC.
--- NOTE | 2017-08-02 07:37 | NUR ---
PT SLEPT MOST OF SHIFT. ASSESSMENT DOCUMENTED. MEDS GIVEN PER E-MAR. IV PATENT. PT LOST IV AT END OF SHIFT, WILL ATTEMPT TO RESTART. NO REPORTS OF PAIN OR NAUSEA. WILL CONTINUE WITH PLAN OF CARE.
[2017-08-02 08:00] VITALS: BP 164/89
[2017-08-02 08:34] LABS: HEMATOCRIT 32.7 % (42.0-52.0); HEMOGLOBIN 10.9 gm/dL (14.0-18.0)
[2017-08-02 08:48] LABS: ALBUMIN 3.4 g/dL (3.4-5.0); CALCIUM 7.6 mg/dL (8.5-10.1); CREATININE 10.2 mg/dL (0.6-1.3); PHOSPHORUS* 6.8 mg/dL (2.5-4.9); POTASSIUM 5.2 mmol/L (3.5-5.1)
[2017-08-02 09:00] VITALS: BP 164/89
[2017-08-02 12:10] VITALS: BP 190/50
[2017-08-02] MEDS ORDERED: VANCOMYCIN750 MG/151 IV (12:47)
[2017-08-02 12:48] VITALS: BP 164/89
[2017-08-02 12:54] VITALS: BP 164/89
--- NOTE | 2017-08-02 13:54 | NUR ---
Pt to dc home with family today. SW faxed IV script and dc information to [facility] at fax [phone]. SW tried to call dialysis at [phone] and the voice message kept cycling and would not connect to a person. No other needs or concerns expressed.
--- NOTE | 2017-08-04 08:58 | CON ---
[address] [address] CONSULTATION Name: MENDELSAMANTA BALTAZAR Room: [address] IN M.R.#: [id number] Admission: 07/29/17 Attend Phys: Manfred Martin MD Discharge: 08/02/17 Date of : 77 Report #: [id number] THIS REPORT FOR: //name// CC: Cristofer Martin DATE OF SERVICE: 07/30/2017 REQUESTING PHYSICIAN: Manfred Martin M.D. REASON FOR CONSULTATION: Assist in providing dialysis. HISTORY OF PRESENT ILLNESS: The patient is a 41-year-old man with medical history significant for end-stage renal disease on dialysis at [facility] on Saturday, Saturday and Saturday schedule. He presents yesterday after dialysis with complaints of nausea, vomiting, and diarrhea. He was admitted with diagnosis of viral gastroenteritis and possible sepsis. PAST MEDICAL HISTORY: Significant for hypertension, diabetes and obesity. FAMILY HISTORY: Noncontributory. SOCIAL HISTORY: No alcohol abuse. MEDICATIONS: Reviewed. REVIEW OF SYSTEMS: He feels better. No more vomiting. PHYSICAL EXAMINATION: GENERAL: Awake, alert, oriented. VITAL SIGNS: Blood pressure is 170/69, heart rate is 90, afebrile. HEENT: Pupils are round. NECK: Fatty. LUNGS: Clear. CARDIOVASCULAR: Regular rate. ABDOMEN: Obese. LOWER EXTREMITIES: No edema. EXTREMITIES: He has left radiocephalic fistula, which is patent. LABORATORY DATA: Report from today revealed potassium of 4.4, BUN 47, creatinine 8.0. ASSESSMENT AND PLAN: A 41-year-old man with end-stage renal disease admitted with diagnosis of viral gastroenteritis. His dialysis is tomorrow. We will schedule him to be [place] [address] CONSULTATION Name: SAMANTA OGLESBY Room: [address]#: [id number] Admission: 07/29/17 Attend Phys: Manfred Martin MD Discharge: 08/02/17 Date of : 77 Report #: [id number] Thank you very much for asking my opinion and my help providing dialysis on the patient. <ELECTRONICALLY SIGNED> By: Robel Monk MD 08/04/17 0858 1309 0230Robel Monk MD /[facility]
== END 2017-08-02 13:15 | disposition home or self-care (01) | DRG 871 ==
LOC: M.ERS 11:07 → M.3W 13:54 → M.TBA-ER 13:54 → M.3W 15:37
PROVIDERS: Internal Medicine Nephrology; Nurse Practitioner Psychiatric/Mental Health; ADMIT Internal Medicine
PROC: B24BZZ4 Ultrasonography of Heart with Aorta, Transesophageal (ICD-10-PCS; principal; 2017-07-31)
DX: A41.01 Sepsis due to Methicillin susceptible Staphylococcus aureus (principal); N18.6 End stage renal disease; I13.2 Hypertensive heart and chronic kidney disease with heart failure and with stage 5 chronic kidney disease, or end stage renal disease; I42.9 Cardiomyopathy, unspecified; Z68.41 Body mass index [BMI] 40.0-44.9, adult; N25.81 Secondary hyperparathyroidism of renal origin; E87.1 Hypo-osmolality and hyponatremia; A08.4 Viral intestinal infection, unspecified; I50.9 Heart failure, unspecified; E11.22 Type 2 diabetes mellitus with diabetic chronic kidney disease; E66.9 Obesity, unspecified; Z99.2 Dependence on renal dialysis; Z86.14 Personal history of Methicillin resistant Staphylococcus aureus infection; Z79.82 Long term (current) use of aspirin; Z79.899 Other long term (current) drug therapy; Z82.49 Family history of ischemic heart disease and other diseases of the circulatory system

== ENCOUNTER 2017-09-01 14:04 | Inpatient (IN) | payer BC, MEDICARE ==
[~2017-09-01] VITALS: Ht 165.1 cm; Wt 122.5 kg
[~2017-09-01 14:04] MED LIST changes: +VANCOMYCIN750 MG/151 IV
[2017-09-01 14:08] VITALS: BP 177/144
[2017-09-01 14:45] LABS: HEMATOCRIT 29.1 % (42.0-52.0); HEMOGLOBIN 9.8 gm/dL (14.0-18.0); MCH 30.6 pg (26.0-34.0); MCHC 33.7 g/dL (28.0-37.0); MPV 8.2 fl. (7.2-11.1); NUCLEATED RBCS 0 /100WBC; PLATELET COUNT* 244 thou/uL (150-400); RBC 3.19 mil/uL (4.50-6.00); RDW-CV 15.6 % (10.5-14.5); WBC 13.4 thou/uL (4.0-11.0)
[2017-09-01 14:55] LABS: ANION GAP 10 mmol/L (7-16); BUN 74 mg/dL (7-18); CALCIUM 8.5 mg/dL (8.5-10.1); CHLORIDE 97 mmol/L (98-107); CO2 27 mmol/L (21-32); CREATININE 9.8 mg/dL (0.6-1.3); GLUCOSE 162 mg/dL (70-99); POTASSIUM 5.4 mmol/L (3.5-5.1); SODIUM 134 mmol/L (136-145)
[2017-09-01 15:06] LABS: ALBUMIN 3.5 g/dL (3.4-5.0); ALKALINE PHOSPHATASE 85 U/L (46-116); LIPASE 178 U/L (73-393); MAGNESIUM 2.4 mg/dL (1.8-2.4); NT-PRO BRAIN NAT PEPTIDE 21562 pg/mL (<300); SGOT 13 U/L (15-37); SGPT 16 U/L (30-65); TOTAL BILIRUBIN 0.4 mg/dL (<0.1-1.0); TOTAL PROTEIN 8.1 g/dL (6.4-8.2); TROPONIN-I LEVEL <0.06 ng/mL (<0.06)
[2017-09-01 15:34] LABS: ABSOLUTE EOSINOPHILS 0.3 thou/uL (0.0-0.7); ABSOLUTE LYMPHOCYTES 1.3 thou/uL (0.8-5.3); ABSOLUTE MONOCYTES 0.7 thou/uL (0.0-1.2); ABSOLUTE NEUTROPHILS 11.1 thou/uL (1.6-8.1)
[2017-09-01 15:35] LABS: PLATELET ESTIMATE ADEQUATE
[2017-09-01 16:35] VITALS: BP 147/63
[2017-09-01 18:00] VITALS: BP 150/75
[2017-09-01 19:55] VITALS: BP 160/78
--- NOTE | 2017-09-01 23:54 | NUR ---
AT ABOUT 2330, PTS HEART RATE WENT UP TO THE 150'S. PT WAS GIVEN A 20MG BOLUS OF CARDIZEM AND RATE WAS INCREASED TO 10 MG/HR. ABOUT 10 MINUTES AFTER THE BOLUS, PTS HEART RATE RETURNED TO THE 70'S.
[2017-09-02] VITALS: BP 168/79
--- NOTE | 2017-09-02 03:24 | NUR ---
ASSUMMED CARE OF PT AT 1900. PT IS ALERT AND ORIENTED. VSS. PERRLA. NO COMPLAINTS OF PAIN. PTS HEART RATE HAS REMAINED IN SINUS RYTHM EXCEPT FOR ONE EPISODE ABOUT 2330. PTS CARDIZEM WAS INCREASED TO 10MG/HR. PT IS SLEEPING COMFORTABLY IN BED. RESPIRATIONS ARE EVEN AND NONLABORED. WILL CONTINUE TO MONITOR PT.
[2017-09-02 04:00] VITALS: BP 132/62
[2017-09-02 06:52] LABS: CALCIUM 8.3 mg/dL (8.5-10.1); POTASSIUM 5.2 mmol/L (3.5-5.1)
[2017-09-02 06:53] LABS: CREATININE 11.4 mg/dL (0.6-1.3)
--- NOTE | 2017-09-02 07:20 | NUR ---
CHANGE OF SHIFT BEDSIDE REPORT GIVEN PATIENT UP IN DIALYSIS AT THIS TIME ASSUMED PATIENT CARE
--- NOTE | 2017-09-02 09:21 | NUR ---
Pt very well known to this CM from previous hospital stays. Pt is A&O. Resides at home with his , supportive family. Independent with ADLs, continues to work outside of the home. [facility] [place]. No Dme. No hx of HH or SNF. Goal is home at md. Cm will fax flowsheets at md.
--- NOTE | 2017-09-02 11:41 | EKG ---
[place] [address] ELECTROCARDIOGRAM REPORT Name: SAMANTA OGLESBY Room: [address]R.#: [id number] Admission: 09/01/17 Attend Phys: Manfred Martin MD Discharge: Date of : 77 Report #: [id number] THIS REPORT FOR: //name// [facility] ED Test Date: 2017-09-01 Test Time: 14:12:05 Pat Name: SAMANTA OGLESBY Department: Room: Gender: Oracle Soa Architect: : 1975 Requested By: Ovi Wright Order Number: [id number] MD: Marky Larry Measurements Intervals [place] Rate: 160 P: 0 TX: QRS: 2 QRSD: 103 T: 93 QT: 312 QTc: 509 Interpretive Statements Supraventricular tachycardia Abnormal R-wave progression, late transition Nonspecific repol abnormality, lateral leads Prolonged QT interval Compared to ECG 06/19/2017 08:05:21 Prolonged QT interval now present Sinus rhythm no longer present Electronically Signed On 09-02-2017 11:41:41 CDT by Marky Larry [email or web address] <ELECTRONICALLY SIGNED> By: Marky Larry MD, [facility] 09/02/17 1141 1412 1412 Marky Larry MD, [facility] /EPI
--- NOTE | 2017-09-02 11:42 | EKG ---
[place] [address] ELECTROCARDIOGRAM REPORT Name: SAMANTA OGLESBY [address] [id number] Admission: 09/01/17 Attend Phys: Manfred Martin MD Discharge: Date of : 77 Report #: [id number] THIS REPORT FOR: //name// [facility] ED Test Date: 2017-09-01 Test Time: 14:29:04 Pat Name: SAMANTA OGLESBY Department: Room: Gender: Special Events Director: Melania CARRANZA : 1975 Requested By: Charlee Kidd Order Number: [id number] MD: Marky Larry Measurements Intervals [place] Rate: 84 P: 24 W[place]: 162 QRS: -3 QRSD: 100 T: 88 QT: 377 QTc: 446 Interpretive Statements Sinus rhythm Abnormal R-wave progression, late transition Electronically Signed On 09-02-2017 11:42:16 CDT by Marky Larry [email or web address] <ELECTRONICALLY SIGNED> By: Marky Larry MD, [facility] 09/02/17 1142 1429 1429 Marky Larry MD, FACC /EPI
[2017-09-02 12:13] VITALS: BP 148/63
[2017-09-02 15:34] VITALS: BP 144/61
--- NOTE | 2017-09-02 19:34 | NUR ---
PATIENT SITTING UP AT EDGE OF BED REMAINS A AND O X 4 SR RA GOOD APPETITE LAST BM T-1 UP AD PAIGE IV R AC 20 GA SL DIALYSIS TODAY 4L OFF CALL LIGHT IN REACH AND INSTRUCTION GIVEN AND FOLLOWED ABN LABS MONITORED CR 11.4, BUN 85, K+ 5.2 ACCUCHECKS OFF UNIT/109/97
[2017-09-02 20:27] VITALS: BP 107/46
[2017-09-03] VITALS (7 sets, daily range): BP systolic 97–134; BP diastolic 48–76
--- NOTE | 2017-09-03 07:25 | NUR ---
CHANGE OF SHIFT BEDSIDE REPORT GIVEN PATIENT SEEN AT BEDSIDE, IN BED RESTING ASSUMED PATIENT CARE
--- NOTE | 2017-09-03 08:04 | NUR ---
PT IS ABLE TO COMMUNICATE HIS NEEDS TO STAFF EFFECTIVELY. HE HAS DENIED THE NEED FOR PAIN MEDICATION UP TO THIS TIME. HE IS CURRENTLY FOLLOWING A M/W/F SCHEDULE FOR HEMODIALYSIS. LEFT FOREARM FISTULA IS POSITIVE FOR T&B.
--- NOTE | 2017-09-03 10:13 | EKG ---
[place] [address] ELECTROCARDIOGRAM REPORT Name: OGLESBYSAMANTA DELANEY Room: [address] ADM IN M.R.#: [id number] Admission: 09/03/17 Attend Phys: Manfred Martin MD Discharge: Date of : 77 Report #: [id number] THIS REPORT FOR: //name// [facility] Test Date: 2017-09-03 Test Time: 08:17:43 Pat Name: SAMANTA OGLESBY Department: Room: [address] Gender: M Billing Checker: : 1975 Requested By: Marky Larry Order Number: [id number] Reading MD: Marky Larry Measurements Intervals [place] Rate: 64 P: 12 NE: 170 QRS: 18 QRSD: 106 T: 51 QT: 455 QTc: 470 Interpretive Statements Sinus rhythm Abnormal R-wave progression, late transition Baseline wander in lead(s) V2 Compared to ECG 09/01/2017 14:29:04 No significant changes Electronically Signed On 09-03-2017 10:12:51 CDT by Marky Larry [email or web address] <ELECTRONICALLY SIGNED> By: Marky Larry MD, [facility] 09/03/17 1012 08 08 Marky Larry MD, [facility] /EPI
--- NOTE | 2017-09-03 10:28 | CON ---
[address] [address] CONSULTATION Name: MENDELSAMANTA DELANEY Room: [address] IN M.R.#: [id number] Admission: 09/03/17 Attend Phys: Manfred Martin MD Discharge: Date of : 77 Report #: [id number] THIS REPORT FOR: //name// CC: [facility] physician/PCP Manfred Martin DATE OF SERVICE: 09/02/2017 NEPHROLOGY CONSULTATION CONSULTING PHYSICIAN: Manfred Martin M.D. REASON FOR NEPHROLOGY CONSULTATION: End-stage renal disease, for maintenance hemodialysis. CHIEF COMPLAINT: Gassy feeling in the stomach and nausea and some shortness of breath and palpitations. HISTORY OF PRESENT ILLNESS: This is a very pleasant 41-year-old male who has past medical history of end-stage renal disease and he is on hemodialysis at [facility] every Saturday, Saturday and Saturday. He is very compliant with dialysis. He came in with palpitation, shortness of breath and nausea, which have been going on for about 2-3 days before he came to the hospital. When he came to the ER, he was found to be in SVT and he was given adenosine and he converted as a result of which. The patient was seen on dialysis this morning. He feels a little bit better. The patient reports history of diabetes, hypertension and congestive heart failure, but no history of any arrhythmias in the past. ALLERGIES: No known drug allergies. REVIEW OF SYSTEMS: Nausea, shortness of breath and palpitations, which are now better. PAST MEDICAL HISTORY: Includes history of end-stage renal disease, on hemodialysis; hypertension; diabetes type 2; chronic diastolic congestive heart failure; MRSA line sepsis and morbid obesity. PAST SURGICAL HISTORY: Includes history of AV fistula and Perm-A-Cath. FAMILY HISTORY: Heart disease. 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 Does not smoke or use recreational drugs or alcohol. HOME MEDICATIONS: They include carvedilol, docusate, aspirin, [employer], [place] [address] CONSULTATION Name: SAMANTA OGLESBY Room: [address]#: [id number] Admission: 09/03/17 Attend Phys: Manfred Martin MD Discharge: Date of : 77 Report #: [id number] amlodipine, folic acid, vitamin B complex, furosemide, Velphoro, clonidine and sevelamer. PHYSICAL EXAMINATION: VITAL SIGNS: Blood pressure is 132/62, pulse rate is 80, temperature 36.7, respiratory rate is 18 and pulse ox is 98% on room air. GENERAL: He was seen on dialysis, tolerating treatment. Awake, alert and oriented. HEAD, EYES, EARS, NOSE AND THROAT: Mucous membranes are moist. NECK: No JVD. CHEST: Clear to auscultation bilaterally. No crackles or wheezing. CARDIOVASCULAR: S1, S2 normal. No murmurs heard. ABDOMEN: Soft, nondistended and nontender. Bowel sounds are present. EXTREMITIES: He has a left radiocephalic fistula which is in use and working well. Lower extremities, there is no edema. Symmetrical extremities. NEUROLOGIC FUNCTION: Gross neurological functions are intact. PSYCHIATRIC: Mood and affect seem to be normal. LABORATORY DATA: These were reviewed from yesterday afternoon. Hemoglobin was 9.8 and WBC was 13.4. Potassium was 5.2, sodium was 137 and CO2 was 29. Other labs were reviewed. IMAGING: His chest x-ray was reviewed. ASSESSMENT AND PLAN: 1. End-stage renal disease, on hemodialysis every Saturday, Saturday and Saturday: The patient was seen on dialysis this morning and he was tolerating well, 4.5 liters of fluid removal using a 2 K bath. 2. Mild hyperkalemia: Should get better after dialysis. It is already 5.1 this morning. 3. Palpitations and supraventricular tachycardia, status post chemical cardioversion: Further treatment as per Cardiology. 4. Anemia of chronic kidney disease: We will give Epogen 7500 units with dialysis today. The patient does get at his outpatient facility. 5. Hypertension: Blood pressure is currently controlled on his current blood pressure medication regimen. 6. Secondary hyperparathyroidism and hyperphosphatemia: Continue his binders for now. Thank you for this consultation. We will continue to follow along with you. <ELECTRONICALLY SIGNED> By: Fawn Swan MD 09/03/17 1028 1016 1320Fawn Swan MD /nt
--- NOTE | 2017-09-03 18:45 | NUR ---
PATIENT SITTING UP IN BED AND VISITING WITH FAMILY REMAINS A AND O X 4 SR/1ST DEGREE AT TIMES LUNGS CTA/DIM IN BASES RA O2 SATS 97% WEARS O2 2L NC AT HS GOOD APPETITE LAST BM T-2 UO ONLY 60CC REPORTED TODAY UP AD PAIGE IV R AC 20 GA SL L FA FISTULA BRUIE AND THRILL LAST DIALYSIS SATURDAY 4L OFF NO C/O PAIN TODAY CALL LIGHT IN REACH AND INSTRUCTION GIVEN AND FOLLOWED ACCUCHECKS 116/116/94
--- NOTE | 2017-09-04 03:39 | NUR ---
PT ALERT ORIENTED. BENADRY AND MELATONIN GIVEN HS. PT STATED HE HAS A COUGH. DR VASQUEZ NOTIFIED. ORDERS FOR COUGH MEDICATION GIVEN. PT HAD ONE EPISOID WHERE HE CALLED OUT AND SAID HE COULD NOT BREATH. BREATH SOUNDS DIMINISHED BUT OTHER WADDELL CLEAR. O2 AT 2 LITERS NC. O2 SAT 100% REASURANCE PROVIDED. WITH COUGH MEDICATION. TELEMETRY SHOWS SR. WILL CONTINUE TO MONITOR.
[2017-09-04 03:57] VITALS: BP 115/67
[2017-09-04 08:35] VITALS: BP 142/75
--- NOTE | 2017-09-04 09:48 | NUR ---
ASSUMED CARE OF PT THIS AM AROUND 0715- COOPERATIVE MANAGER IN PLACE ORDERED, TRACING SR- PT NOTED TO BE OFF UNIT AT DIALYSIS AT SHIFT CHANGE REPORTED TO HAVE LEFT UNIT 0650-ASSESSMENT COMPLETED IN DIALYSIS- PT A&O X4- CONTINENT OF BOWEL AND BLADDER, NOTED TO BE OLIGURIC- UP AD-PAIGE WITH STEADY GAIT NOTED- LCTA, RESP EVEN AND UN-LABORED- PT REPORTS OCCASSIONAL DYSPNEA- VSS- ABDOMEN SOFT/OBESE/NON-TENDER, BS X4 QUADS- PT REPORTS LAST BM 09/02/17- IV NOTED T0 RIGHT AC INTACT AND SL- DIALYSIS SHUNT NOTED TO LEFT FA WITH POSITIVE BRUIT AND THRIL- PT REPORTS NAGGING NON-PRODUCTIVE COUGH WHILE IN DIALYSIS, PRN ROBITUSSIN WITH CODEINE TAKEN AND GIVEN TO PT DURRING DIALYSIS AT 0827- BS MONITORED PRESCRIBED NOTED TO BE 100 THIS AM- PT DENIES ANY C/O PAIN- ALL NEEDS MET AT THIS TIME-WCTM
[2017-09-04 10:32] VITALS: BP 142/75
[2017-09-04 12:23] VITALS: BP 150/71
--- NOTE | 2017-09-04 13:07 | CON ---
[address] [address] CONSULTATION Name: SAMANTA OGLESBY Room: [address] IN .R.#: [id number] Admission: 09/03/17 Attend Phys: Manfred Martin MD Discharge: Date of : 77 Report #: [id number] THIS REPORT FOR: //name// CC: Cristofer Martin DATE OF SERVICE: 09/02/2017 CARDIOLOGY CONSULTATION HISTORY OF PRESENT ILLNESS: The patient is a 41-year-old male who was admitted complaining of palpitations. The patient has an extensive past medical history. He developed end-stage renal disease and has been on dialysis for about 2 years. As part of evaluation for possible kidney transplant, he underwent an outpatient stress test at [facility] that apparently was abnormal. Since he lives in [place], he actually had his cardiac catheterization here at [facility] as an outpatient. Results showed no significant coronary artery disease with an ejection fraction of 45%. It is felt his stress test was false positive. The angiogram was actually done in June. He has done well since that time with his dialysis 3 days a week. 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 Recently, he has not felt very well. He has been fatigued. He has also felt his heart beating fast and irregular. He has been taking an zahc-izh-dltussi supplement that includes caffeine. He has had episodes where his heart races. He has had no syncope. Yesterday, his heart was racing, so he came to the Emergency Room. He was found to be in a supraventricular tachycardia. He was given adenosine and converted. I was asked to see him for further evaluation and treatment. He denies recent chest pain, increased shortness of breath, fever. PAST MEDICAL HISTORY: Significant for eye surgery, hip surgery when he was 14 years old, hypertension, diabetes, hyperlipidemia. MEDICATIONS: Includes amlodipine, aspirin, Lipitor, carvedilol, clonidine, furosemide. He previously was on metformin. ALLERGIES: He has no known drug allergies. FAMILY HISTORY: Negative for heart disease. SOCIAL HISTORY: He is . He and his live in [place]. 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 He previously used illicit drugs including methamphetamines and cocaine, although he no longer abuses drugs. No smoking. No alcohol abuse. REVIEW OF SYSTEMS: He is overweight, standing 5 feet 5 and weighing 270 pounds. He has sleep apnea, uses oxygen at night time. He had an episode of confusion and headache in the past, told as he had a TIA. No history of asthma, [place] [address] CONSULTATION Name: OGLESBYSAMANTA BALTAZAR Room: [address] IN ..#: [id number] Admission: 09/03/17 Attend Phys: Manfred Martin MD Discharge: Date of : 77 Report #: [id number] ulcer disease, liver disease, cancer, psychiatric illness, or chronic skin condition. PHYSICAL EXAMINATION: GENERAL: A large male who appeared in no distress. VITAL SIGNS: He had a blood pressure of 140/60, pulse 70, he is afebrile. HEENT: He is anicteric, conjunctiva pink. Mucous membranes moist. NECK: Veins nondistended. No carotid bruits. Neck is supple. CHEST: Clear to auscultation. CARDIOVASCULAR: Regular rate without murmur or rub. ABDOMEN: Obese, soft, nontender. EXTREMITIES: Had no edema. SKIN: Warm and dry. NEUROLOGIC: Nonfocal. IMAGING: ECG on admission showed a narrow complex tachycardia at 160 beats per minute consistent with a supraventricular tachycardia that converted with adenosine. ECG now shows sinus rhythm, nonspecific ST-segment changes. He had an echocardiogram done in July that showed an ejection fraction of 50%, left ventricular hypertrophy, left atrial enlargement, mild mitral and trace tricuspid insufficiency and mild pericardial effusion. His chest x-ray yesterday showed mild cardiomegaly, clear lung barrett. LABORATORY DATA: Sodium 132, potassium is 5.2, creatinine 11, glucose 119. Liver function studies were normal. Troponin 0.06. BNP . TSH 0.583, T4 1.24. White blood cell count 13.4, hemoglobin 9.8. IMPRESSION AND RECOMMENDATIONS: 1. Supraventricular tachycardia. Recommend amiodarone. 2. Hypertension. The patient on multiple medications. 3. Hyperlipidemia. The patient is on a statin drug. 4. End-stage renal disease. The patient on dialysis. 5. Glucose intolerance. The patient no longer on metformin. 6. History of illicit drug use. The patient no longer abuses drugs. 7. Sleep apnea. The patient uses oxygen at nighttime. 8. Obesity. <ELECTRONICALLY SIGNED> By: Marky Larry MD, FACC 09/04/17 1307 1320 1937Marky Larry MD, FACC /nt
[2017-09-04] MEDS ORDERED: PACERONE 200 M200 M1 PO (13:45)
[2017-09-04 14:14] VITALS: BP 142/75
--- NOTE | 2017-09-04 14:20 | NUR ---
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
--- NOTE | 2017-09-04 16:39 | EKG ---
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1975 Requested By: Marky Larry Order Number: [id number] MD: Austin Spencer Measurements Intervals [place] Rate: 75 P: 11 RI: 167 QRS: 1 QRSD: 109 T: 62 QT: 421 QTc: 471 Interpretive Statements Sinus rhythm Probable left atrial enlargement LVH with secondary repolarization abnormality Compared to ECG 09/03/2017 08:17:43 Left ventricular hypertrophy now present Early repolarization now present Electronically Signed On 09-04-2017 16:38:59 CDT by Austin Spencer [email or web address] <ELECTRONICALLY SIGNED> By: Austin Spencer MD, [facility] 09/04/17 1638 1325 1325 Austin Spencer MD, [facility] /EPI
== END 2017-09-04 14:35 | disposition home or self-care (01) | DRG 308 ==
LOC: M.ERS 14:04 → M.2W 16:05 → M.TBA-ER 16:05 → M.2W 16:47
PROVIDERS: Emergency Medicine Emergency Medical Services; ADMIT Internal Medicine
PROC: 5A1D70Z Performance of Urinary Filtration, Intermittent, Less than 6 Hours Per Day (ICD-10-PCS; principal; 2017-09-02)
PROC: 5A2204Z Restoration of Cardiac Rhythm, Single (ICD-10-PCS; principal; 2017-09-02)
DX: I47.1 Supraventricular tachycardia (principal); N18.6 End stage renal disease; I13.2 Hypertensive heart and chronic kidney disease with heart failure and with stage 5 chronic kidney disease, or end stage renal disease; I50.32 Chronic diastolic (congestive) heart failure; N25.81 Secondary hyperparathyroidism of renal origin; Z68.41 Body mass index [BMI] 40.0-44.9, adult; E87.5 Hyperkalemia; E66.01 Morbid (severe) obesity due to excess calories; E78.5 Hyperlipidemia, unspecified; D63.1 Anemia in chronic kidney disease; E83.39 Other disorders of phosphorus metabolism; G47.33 Obstructive sleep apnea (adult) (pediatric); E11.22 Type 2 diabetes mellitus with diabetic chronic kidney disease; Z99.2 Dependence on renal dialysis; Z86.14 Personal history of Methicillin resistant Staphylococcus aureus infection; Z82.49 Family history of ischemic heart disease and other diseases of the circulatory system; Z99.81 Dependence on supplemental oxygen; Z79.82 Long term (current) use of aspirin; Z79.899 Other long term (current) drug therapy

== ENCOUNTER 2017-09-13 06:41 | Emergency (ER) | payer BC, MEDICARE ==
[~2017-09-13] VITALS: Ht 165.1 cm; Wt 115.7 kg
[~2017-09-13 06:41] MED LIST changes: +PACERONE 200 M200 M1 PO
[2017-09-13] MEDS ORDERED: LIPITOR10 MG PO (07:34)
[2017-09-13] MEDS ORDERED: RENAL CAPS SOFTG1 MG PO (07:36)
[2017-09-13] MEDS ORDERED: FIBERCON625 M1 PO (07:37)
[2017-09-13 07:54] LABS: ABSOLUTE BASOPHILS 0.1 thou/uL (0.0-0.2); ABSOLUTE EOSINOPHILS 0.3 thou/uL (0.0-0.7); ABSOLUTE LYMPHOCYTES 1.3 thou/uL (0.8-5.3); ABSOLUTE MONOCYTES 0.7 thou/uL (0.0-1.2); ABSOLUTE NEUTROPHILS 6.6 thou/uL (1.6-8.1); BASOPHILS 1.1 %; EOSINOPHILS 3.9 %; HEMATOCRIT 29.3 % (42.0-52.0); HEMOGLOBIN 9.8 gm/dL (14.0-18.0); LYMPHOCYTES 14.7 %; MCH 30.6 pg (26.0-34.0); MCHC 33.5 g/dL (28.0-37.0); MCV 91.5 fL (80.0-100.0); MONOCYTES 7.3 %; MPV 7.8 fl. (7.2-11.1); NUCLEATED RBCS 0 /100WBC; PLATELET COUNT* 250 thou/uL (150-400)
[2017-09-13 08:07] LABS: ANION GAP 15 mmol/L (7-16); APTT 29.3 Seconds (25.0-31.3); BUN 79 mg/dL (7-18); CALCIUM 8.1 mg/dL (8.5-10.1); CHLORIDE 99 mmol/L (98-107); CO2 24 mmol/L (21-32); CREATININE 9.5 mg/dL (0.6-1.3); GLUCOSE 144 mg/dL (70-99); INR 1.1; POTASSIUM 5.5 mmol/L (3.5-5.1); PROTIME 10.9 Seconds (9.20-11.50); SODIUM 138 mmol/L (136-145)
[2017-09-13 08:26] LABS: ALBUMIN 3.6 g/dL (3.4-5.0); ALKALINE PHOSPHATASE 101 U/L (46-116); LIPASE 227 U/L (73-393); MAGNESIUM 2.5 mg/dL (1.8-2.4); NT-PRO BRAIN NAT PEPTIDE 19328 pg/mL (<300); SGOT 15 U/L (15-37); SGPT 20 U/L (30-65); TOTAL BILIRUBIN 0.3 mg/dL (<0.1-1.0); TOTAL PROTEIN 8.4 g/dL (6.4-8.2); TROPONIN-I LEVEL <0.06 ng/mL (<0.06)
[2017-09-13 08:51] VITALS: BP 127/64
--- NOTE | 2017-09-13 10:06 | EKG ---
[place] [address] ELECTROCARDIOGRAM REPORT Name: SAMANTA OGLESBY Room: [facility] [id number] Admission: 09/13/17 Attend Phys: Discharge: 09/13/17 Date of : 77 Report #: [id number] THIS REPORT FOR: //name// [facility] ED Test Date: 2017-09-13 Test Time: 06:49:55 Pat Name: SAMANTA OGLESBY Department: Room: Gender: M Doffer: RADHA : 1975 Requested By: Simone Schneider Order Number: [id number] MD: Marky Larry Measurements Intervals [place] Rate: 72 P: 38 DE: 165 QRS: -8 QRSD: 108 T: 52 QT: 422 QTc: 462 Interpretive Statements Sinus rhythm Probable left atrial enlargement late transition Baseline wander in lead(s) II,III,aVF,V3 Compared to ECG 09/04/2017 13:25:16 no change Electronically Signed On 09-13-2017 10:06:37 CDT by Marky Larry [email or web address] <ELECTRONICALLY SIGNED> By: Marky Larry MD, [facility] 09/13/17 1006 0649 0649 Marky Larry MD, [facility] /EPI
== END 2017-09-13 08:51 | disposition home or self-care (01) ==
LOC: M.ERS 06:41
PROVIDERS: Family Medicine
DX: R00.2 Palpitations (principal); E11.22 Type 2 diabetes mellitus with diabetic chronic kidney disease; I13.2 Hypertensive heart and chronic kidney disease with heart failure and with stage 5 chronic kidney disease, or end stage renal disease; I50.30 Unspecified diastolic (congestive) heart failure; N18.6 End stage renal disease; E66.01 Morbid (severe) obesity due to excess calories; Z68.41 Body mass index [BMI] 40.0-44.9, adult; Z86.14 Personal history of Methicillin resistant Staphylococcus aureus infection; Z99.2 Dependence on renal dialysis

== ENCOUNTER 2017-11-11 11:03 | Emergency (ER) | payer MEDICARE ==
[~2017-11-11] VITALS: Ht 162.6 cm; Wt 110.7 kg
[~2017-11-11 11:03] MED LIST changes: +LIPITOR10 MG PO
[2017-11-11 11:40] LABS: ABSOLUTE BASOPHILS 0.1 thou/uL (0.0-0.2); ABSOLUTE EOSINOPHILS 0.3 thou/uL (0.0-0.7); ABSOLUTE LYMPHOCYTES 0.9 thou/uL (0.8-5.3); ABSOLUTE MONOCYTES 0.6 thou/uL (0.0-1.2); ABSOLUTE NEUTROPHILS 6.8 thou/uL (1.6-8.1); BASOPHILS 0.8 %; HEMATOCRIT 35.4 % (42.0-52.0); HEMOGLOBIN 11.9 gm/dL (14.0-18.0); LYMPHOCYTES 10.5 %; MCH 31.7 pg (26.0-34.0); MCHC 33.6 g/dL (28.0-37.0); MCV 94.1 fL (80.0-100.0); MONOCYTES 6.7 %; MPV 8.2 fl. (7.2-11.1); NUCLEATED RBCS 0 /100WBC; PLATELET COUNT* 289 thou/uL (150-400); RBC 3.76 mil/uL (4.50-6.00); RDW-CV 16.7 % (10.5-14.5); WBC 8.6 thou/uL (4.0-11.0)
[2017-11-11 12:13] LABS: ALBUMIN 3.8 g/dL (3.4-5.0); CALCIUM 8.8 mg/dL (8.5-10.1); CREATININE 5.3 mg/dL (0.6-1.3); POTASSIUM 3.3 mmol/L (3.5-5.1); TOTAL BILIRUBIN 0.5 mg/dL (<0.1-1.0); TOTAL PROTEIN 9.1 g/dL (6.4-8.2)
[2017-11-11 12:59] VITALS: BP 184/56
== END 2017-11-11 13:00 | disposition home or self-care (01) ==
LOC: M.ERS 11:03
PROVIDERS: Physician Assistant
DX: K59.00 Constipation, unspecified (principal); I13.2 Hypertensive heart and chronic kidney disease with heart failure and with stage 5 chronic kidney disease, or end stage renal disease; E11.22 Type 2 diabetes mellitus with diabetic chronic kidney disease; E66.01 Morbid (severe) obesity due to excess calories; N18.6 End stage renal disease; Z68.41 Body mass index [BMI] 40.0-44.9, adult; Z99.2 Dependence on renal dialysis

== ENCOUNTER 2017-12-02 07:36 | Inpatient (IN) | payer BC, MEDICARE ==
[~2017-12-02] VITALS: Ht 162.6 cm; Wt 118.4 kg
[2017-12-02 07:42] VITALS: BP 212/95
[2017-12-02] MEDS ORDERED: CARDIZEM CD120 MG PO (07:45)
--- NOTE | 2017-12-02 08:12 | NUR ---
UNSUCCESSFUL ATTEMPT X3 AT IV
[2017-12-02 08:14] LABS: HEMATOCRIT 38.6 % (42.0-52.0); HEMOGLOBIN 12.5 gm/dL (14.0-18.0); MCH 30.4 pg (26.0-34.0); MCHC 32.3 g/dL (28.0-37.0); MPV 8.4 fl. (7.2-11.1); NUCLEATED RBCS 0 /100WBC; PLATELET COUNT* 221 thou/uL (150-400); RDW-CV 17.6 % (10.5-14.5); WBC 13.2 thou/uL (4.0-11.0)
[2017-12-02 08:30] LABS: CALCIUM 7.6 mg/dL (8.5-10.1); CREATININE 11.6 mg/dL (0.6-1.3); POTASSIUM 5.6 mmol/L (3.5-5.1)
[2017-12-02 08:36] LABS: ALBUMIN 3.7 g/dL (3.4-5.0); TOTAL BILIRUBIN 0.4 mg/dL (<0.1-1.0); TROPONIN-I LEVEL 0.3 ng/mL (<0.06)
--- NOTE | 2017-12-02 08:48 | NUR ---
IV INSERTED BY ULTRASOUND BY DR. PATEL
[2017-12-02 09:10] LABS: ABSOLUTE BASOPHILS 0.1 thou/uL (0.0-0.2); ABSOLUTE EOSINOPHILS 0.3 thou/uL (0.0-0.7); ABSOLUTE LYMPHOCYTES 0.5 thou/uL (0.8-5.3); ABSOLUTE MONOCYTES 1.3 thou/uL (0.0-1.2)
[2017-12-02 09:11] LABS: PLATELET ESTIMATE ADEQUATE
[2017-12-02 09:58] LABS: URINE BILIRUBIN NEGATIVE (Negative); URINE BLOOD 1+ (Negative); URINE CLARITY CLEAR; URINE COLOR YELLOW; URINE GLUCOSE-RANDOM 1+ (Negative); URINE KETONES NEGATIVE (Negative); URINE LEUKOCYTES-REFLEX NEGATIVE (Negative); URINE NITRITE-REFLEX NEGATIVE (Negative); URINE PROTEIN 3+ (Negative); URINE SPECIFIC GRAVITY 1.015 (1.005-1.030); URINE UROBILINOGEN 0.2 E.U./dl (0.2-1.0)
[2017-12-02 10:07] LABS: BACTERIA-REFLEX None Seen /HPF (None Seen); CASTS None Seen /LPF (None Seen); CRYSTALS None Seen /LPF (None Seen); SQUAMOUS NONE SEEN /LPF (0-3); URINE RBC None Seen /HPF (0-2); URINE WBC-REFLEX 0-5 Rare /HPF (0-5)
[2017-12-02 11:15] VITALS: BP 215/98
--- NOTE | 2017-12-02 11:15 | NUR ---
RECEIVED REPORT. PT TRANSFERRED TO ROOM 200 VIA CART. VSS. CARDIAC MONITOIRNG IN PLACE SR. ADMISSION HISTORY AND ASSESSMENT COMPELTED CHARTED. PT ALERT AND ORIENTED. PT VOMITTING PER ARRIVAL. PT GIVEN ZOFRAN AND MORPHINE SENIOR ECONOMIST TO UNIT. PT ON RA WITH O2 SAT 91% 2L PER NC PLACED. IVF INFUSING PER ORDERS. PT REPORTS GENERALIZED PAIN. PT ORIETNED TO ROOM AND CALL LIGHT. CALL LIGHT IS WITHIN REACH. WILL CONTINUE TO MONTIOR FOR DURAITON OF SHIFT.
[2017-12-02 11:29] VITALS: BP 243/139
--- NOTE | 2017-12-02 16:33 | 2DMMODE ---
[place] [address] 2 D/M-MODE ECHOCARDIOGRAM Name: SAMANTA OGLESBY Room: [address] IN [facility]#: [id number] Admission: 12/02/17 Attend Phys: Jv Olsen Discharge: Date of : 77 Date of Service: 12/02/17 1633 Report #: [id number] THIS REPORT FOR: //name// APPROVED REPORT Study performed: 12/02/2017 14:10:04 EXAM: Comprehensive 2D, Doppler, and color-flow Echocardiogram Patient Location: In-Patient Room #: 200 Status: routine BSA: 2.13 HR: 93 bpm BP: 207/90 mmHg Rhythm: NSR Other Information Technically limited study due to body habitus, poor endocardial definition. Indications Elevated Troponin Echo Enhancing Agent Indication: Endocardial border delineation Agent(s) / Amount(s) Used: Optison 3 cc 2D Dimensions LVEF(%): 52.58 (>50%) IVSd: 17.85 (7-11mm) LVOT Diam: 23.53 (18-24mm) LVDd: 57.81 mm PWd: 13.60 (7-11mm) Ascending Ao: 34.47 (22-36mm) LVDs: 41.96 (25-40mm) Aortic Root: 35.26 mm Smith's LVEF: 52.58 % Volumes Left Atrial Volume (Systole) LA ESV Index: 41.50 mL/m2 Aortic Valve AoV Peak Nam.: 1.63 m/s AO Peak Gr.: 10.57 mmHg LVOT Max P.86 mmHg AO Mean Gr.: 6.06 mmHg LVOT Mean P.19 mmHg LVOT Max V: 1.21 m/[place] [address] 2 D/M-MODE ECHOCARDIOGRAM Name: SAMANTA OGLESBY Room: [address] IN ..#: [id number] Admission: 12/02/17 Attend Phys: Jv Olsen Discharge: Date of : 77 Date of Service: 12/02/17 1633 Report #: [id number] AO V2 VTI: 29.50 cm LVOT Mean V: 0.83 m/s NAMAN (VTI): 3.55 cm2 LVOT V1 VTI: 24.12 cm Mitral Valve E/A Ratio: 1.17 MV Decel. Time: 128.46 ms MV E Max Nam.: 1.24 m/s MV PHT: 37.25 ms MVA (PHT): 5.91 cm2 TDI E/Lateral E': 8.86 Lateral E' Nam.: 0.14 m/s Pulmonary Valve PV Peak Nam.: 1.05 m/s PV Peak Gr.: 4.42 mmHg Tricuspid Valve RAP Estimate: 5.00 mmHg TR Peak Gr.: 30.79 mmHg RVSP: 35.79 mmHg PA Pressure: 35.79 mmHg Left Ventricle The left ventricle is normal size. There is normal LV segmental wall motion. Mild concentric left ventricular hypertrophy. Left ventricular systolic function is normal. The left ventricular ejection fraction is within the normal range. LVEF is 50-55%. The left ventricular diastolic function is normal. Right Ventricle The right ventricle is normal size. The right ventricular systolic function is normal. Atria Left atrium is mildly dilated. The right atrium size is normal. Aortic Valve The aortic valve is normal in structure. No aortic regurgitation is present. There is no aortic valvular stenosis. Mitral Valve The mitral valve is normal in structure. Mild mitral regurgitation. No evidence of mitral valve stenosis[place] [address] 2 D/M-MODE ECHOCARDIOGRAM Name: SAMANTA OGLESBY Room: [address] IN [facility]#: [id number] Admission: 12/02/17 Attend Phys: Jv Olsen Discharge: Date of : 77 Date of Service: 12/02/17 1633 Report #: [id number] The tricuspid valve is normal in structure. Trace tricuspid regurgitation. Mild pulmonary hypertension. Pulmonic Valve The pulmonary valve is normal in structure. Mild pulmonic regurgitation. Great Vessels The aortic root is normal in size. IVC is normal in size and collapses with >50% inspiration Pericardium There is no pericardial effusion. <Conclusion> LVEF is 50-55%. There is normal LV segmental wall motion. Left atrium is mildly dilated. There is no aortic valvular stenosis. No aortic regurgitation is present. Mild mitral regurgitation. Trace tricuspid regurgitation. Mild pulmonary hypertension. Mild pulmonic regurgitation. <ELECTRONICALLY SIGNED> By: Michael Sarabia MD, FACC 12/02/17 1633 1633 1633 Michael Sarabia MD, FACC /INF
--- NOTE | 2017-12-02 18:02 | NUR ---
PT UP IN DIALYSIS. DIALYSIS NURSE CALLED STATING PT HAD C/O OF HEADACHE, CHILLS, AND FEVER OF 99.7. DIALYSIS NURSE ALSO CONCERNED FISTULA INFECTED D/T HAVING A DIFFICULT TIME ACCESSING AND APPEARING DIFFERENTLY THAN PREVIOUS APPOINTMENTS. DIALYSIS NURSE NOTIFIED SUPERVISOR DATA PROCESSING. DR. VASQUEZ NOTIFIED. ORDERS RECEIVED FOR SPESIS FLUIDS HOWEVER WILL VERIFY THIS ORDER DUE TO PT'S BP'S BEING ELEVATED 200'S/100'S AND TO CONSULT DR. SAMAYOA. SPOKE TO DR. SAMAYOA ORDER RECEIVED FOR URINE AND STOOL CULTURES. NEPHROLOGY ORDERED ANTIBIOTICS. PT REMAINS IN DIALYSIS. WILL CONTINUE TO MONITOR.
[2017-12-02 19:45] VITALS: BP 178/67
[2017-12-03] VITALS (7 sets, daily range): BP systolic 126–197; BP diastolic 65–83
--- NOTE | 2017-12-03 03:52 | NUR ---
PATIENT TO FLOOR FROM DIALYSIS AT 1945. REPORT PREVIOUSLY RECEIVED. PATIENT ALERT/ORIENTED X4, FAMILY AT BEDSIDE. PATIENT STATES "FEELING BETTER" AT THIS TIME. STATES HAVING BACK PAIN, RATES 11/22, DR. LOO NOTIFIED, ORDERS RECEIVED AND NOTED. UP WITH SBA. DENIES NEEDS. CALL LIGHT WITHIN REACH, ENCOURAGED TO CALL FOR NEEDS.
--- NOTE | 2017-12-03 03:54 | NUR ---
0055: LAB CALLED WITH POSITIVE BLOOD CULTURE RESULTS. MIDNIGHT VITALS TAKEN AT THIS TIME AND PATIENT NOTED TO BE 67% ON ROOM AIR, REPOSITIONED PATIENT IN BED AND PLACED ON 2L/NC, SATS NOW 95%. DR. LOO NOTIFIED, NEW ORDERS RECEIVED FOR VANCOMYCIN. WILL MONITOR.
--- NOTE | 2017-12-03 07:30 | NUR ---
RECEIVED REPORT. ASSUMED CARE OF PT AT 0730. PT ON 2L PER NC. AM ASSESSMENT AND VITALS COMPLED CHARTED. PT ALERT AND ORIENTED. CARDIAC MONTIORING IN PLACE SR/ST. PT REPORTS SOME NAUSEA THIS AM. ZOFRAN GIVEN. PT REPORTS C/O HEADACHE. PRN TYLENOL GIVEN. IV SALINE LOCKED. PT IS UP SELF. PT INFORMED OF PLAN OF CARE. PT COMMUNICATES UNDERSTANDING. CALL LIGHT IS WITHIN REACH. WILL CONTINUE TO MONITOR FOR DURATION OF SHFIT.
--- NOTE | 2017-12-03 09:37 | EKG ---
[place] [address] ELECTROCARDIOGRAM REPORT Name: SAMANTA OGLESBY Room: [address] ADM IN [facility]#: [id number] Admission: 12/02/17 Attend Phys: Kyara Stubbs Discharge: Date of : 77 Report #: [id number] THIS REPORT FOR: //name// [facility] ED Test Date: 2017-12-02 Test Time: 08:44:52 Pat Name: SAMANTA OGLESBY Department: Room: [facility] Gender: Hemmer Lockstitch: MS : 1975 Requested By: Ignacio Li Order Number: [id number] MD: Michael Sarabia Measurements Intervals Jessie Rate: 88 P: 56 IN: 168 QRS: -44 QRSD: 118 T: 91 QT: 400 QTc: 484 Interpretive Statements Sinus rhythm Probable left atrial enlargement Incomplete right bundle branch block Left ventricular hypertrophy Nonspecific T abnormalities, lateral leads ST elevation, consider anterior injury Baseline wander in lead(s) I,II,aVR Compared to ECG 09/13/2017 06:49:55 Incomplete right bundle-branch block now present Left ventricular hypertrophy now present T-wave abnormality now present ST (T wave) deviation now present Myocardial infarct finding now present Electronically Signed On 8-21-2018 9:37:37 CDT by Michael Sarabia [email or web address] <ELECTRONICALLY SIGNED> By: Michael Sarabia MD, [facility] 12/03/17 0937 0844 Michael Sarabia MD, [facility] /EPI
--- NOTE | 2017-12-03 11:05 | CON ---
[address] [address] CONSULTATION Name: SAMANTA OGLESBY Room: [address] IN M.R.#: [id number] Admission: 12/02/17 Attend Phys: Kyara Stubbs Discharge: Date of : 77 Report #: [id number] THIS REPORT FOR: //name// CC: BUDDY physician/PCP Jv Olsen DATE OF SERVICE: 12/02/2017 REQUESTING PHYSICIAN: Jv Olsen DO. REASON FOR CONSULTATION: End-stage renal disease. HISTORY OF PRESENT ILLNESS: The patient is a very pleasant 41-year-old gentleman with medical history significant for end-stage renal disease. He is on chronic hemodialysis on Saturday, Saturday, Saturday schedule at [facility], presents to the hospital with complaints of abdominal pain, diarrhea, fever, chills and nausea. The patient states that he has been having diarrhea for the last week, fever and chills started overnight. PAST MEDICAL HISTORY: 1. End-stage renal disease. 2. Diabetes mellitus type 2. 3. Hypertension. 4. Morbid obesity. 5. Chronic diastolic congestive heart failure. FAMILY HISTORY: Positive for hypertension and coronary artery disease. SOCIAL HISTORY: No tobacco or alcohol abuse. PAST SURGICAL HISTORY: Placement of AV fistula. MEDICATIONS: At home reviewed. REVIEW OF SYSTEMS: Positive for the symptoms mentioned earlier. PHYSICAL EXAMINATION: GENERAL: Awake, alert, oriented. VITAL SIGNS: Blood pressure is 200/90, heart rate is 98, temperature 36.9. HEENT: Pupils are round. NECK: Fatty. LUNGS: Clear. CARDIOVASCULAR: Regular rate. ABDOMEN: Obese, soft, nontender, [place] [address] CONSULTATION Name: SAMANTA OGLESBY Chanel Room: [address] IN R.#: [id number] Admission: 12/02/17 Attend Phys: Kyara Stubbs Discharge: Date of : 77 Report #: [id number] LOWER EXTREMITIES: Trace edema. He has a left to right brachiocephalic fistula, which is open. LABORATORY REPORT: White count 13.2 thousand with 79% neutrophils and 4% bands, serum sodium 135, potassium 5.6, chloride 95. Urine positive for protein, blood. ASSESSMENT: A 41-year-old gentleman admitted with diarrhea, abdominal pain, fever, chills, and admitted to the hospital. He has end-stage renal disease. Today is his dialysis day. PLAN: 1. To dialyze him today. 2. Correct his blood pressure. 3. We will obtain blood cultures because he has some chills. No high fever now, but I suspect he will develop fever. 4. Need to control his blood pressure. 5. Monitor his blood sugar. Thank you very much for asking my opinion on the patient. <ELECTRONICALLY SIGNED> By: Robel Monk MD 12/03/17 1105 1215 [id number] alis Olson
--- NOTE | 2017-12-03 13:24 | NUR ---
Pt is A&O. Known to this CM from previous hospital stays. Independent, continues to work outside of home. Pt current at [facility] on MWF schedule. No DME. No hx of HH or SNF. Goal is home at ga. Following.
--- NOTE | 2017-12-03 17:06 | NUR ---
VSS. CARDIAC MONITORING IN [place] WITH NO CHANGES THIS SHIFT. PT REMAINS ALERT AND OREITNED. PT ON 2L. IV SALINE LOCKED. PT'S PAIN AND NAUSEA WELL MANAGED THIS SHIFT. PT IS UP AD PAIGE IN ROOM. PT INFORMED OF PLAN OF CARE. PT COMMUNCIATES UNDERSTANDING. CALL LIGHT IS WITHIN REACH. WILL CONTINUE TO MONITOR FOR DURATION OF SHIFT.
[2017-12-04 03:53] VITALS: BP 196/92
[2017-12-04 04:21] LABS: HEMATOCRIT 31.8 % (42.0-52.0); MCH 30.7 pg (26.0-34.0); MCHC 32.8 g/dL (28.0-37.0); MCV 93.7 fL (80.0-100.0); MPV 8.9 fl. (7.2-11.1); RBC 3.39 mil/uL (4.50-6.00); RDW-CV 16.9 % (10.5-14.5); WBC 12.1 thou/uL (4.0-11.0)
[2017-12-04 04:39] LABS: HEMOGLOBIN 10.4 gm/dL (14.0-18.0)
[2017-12-04 04:58] LABS: CALCIUM 7.2 mg/dL (8.5-10.1); CREATININE 11.7 mg/dL (0.6-1.3)
[2017-12-04 05:07] LABS: POTASSIUM 6.2 mmol/L (3.5-5.1)
--- NOTE | 2017-12-04 07:07 | NUR ---
PATIENT RESTED WELL THROUGH THE NIGHT. PATIENT WAS NAUSEATED AND VOMITED AT BEGINNING OF SHIFT. DR. VASQUEZ ON FLOOR AND NOTIFIED. ORDERS RECEIVED AND MEDS GIVEN PER MAR WITH RELIEF NOTED. UP AD PAIGE IN ROOM. DENIES NEEDS. STATES HAVING GENERALIZED BODY ACHES, MEDS PER MAR WITH RELIEF NOTED. REFUSING SCD'S. UP TO DIALYSIS AT 0630 THIS AM. PATIENT SEPSIS + THIS AM, MESSAGE SENT TO DR. HAWKINS VIA [employer]. REPORT GIVEN TO ONCOMING NURSE. WILL MONITOR.
--- NOTE | 2017-12-04 12:50 | CON ---
[address] [address] CONSULTATION Name: SAMANTA OGLEBSY Room: [address] IN M.R.#: [id number] Admission: 12/02/17 Attend Phys: Kyara Stubbs Discharge: Date of : 77 Report #: [id number] THIS REPORT FOR: //name// CC: BUDDY physician/PCP Jv Olsen DATE OF SERVICE: 12/03/2017 INFECTIOUS DISEASE CONSULTATION ATTENDING PHYSICIAN: Dr. Olsen. REASON FOR EVALUATION: Gram-positive septicemia, setting of chronic hemodialysis. HISTORY OF PRESENT ILLNESS: Chart reviewed, patient examined. This 41-year-old gentleman with diabetes mellitus type 2 with severe complications including end-stage renal disease, on thrice weekly hemodialysis. He was admitted after short illness, became nauseated and had some emesis, persistent over the course of the last 24 hours prior to admission. He did notice intermittent chills that were exacerbated while on dialysis. Blood cultures were collected at time of admission, now with 2/2 with growth of gram-positive cocci. He has access via the left forearm fistula. Denies any significant pulmonary-related complaints. Urinalysis was otherwise unrevealing. Echo showed no evidence of vegetation. Plain film of the chest was otherwise unremarkable. CT abdomen and pelvis, degenerative changes involving the lumbar spine with some associated spinal stenosis, small indeterminate right kidney mass. Lactic acid was 0.5. Blood sugars have been generally well controlled. ALLERGIES: None known. MEDICATIONS: Vancomycin dosed with dialysis, amiodarone, diltiazem, aspirin, docusate sodium, diltiazem CD, calcium carbonate, ondansetron, sevelamer, atorvastatin, carvedilol, acetaminophen, furosemide, and clonidine. 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 SOCIAL HISTORY: Nonsmoker, no ethanol. FAMILY HISTORY: Noncontributory. REVIEW OF SYSTEMS: [place] [address] CONSULTATION Name: MENDELSAMANTA R Room: [address] IN [facility]#: [id number] Admission: 12/02/17 Attend Phys: Kyara Stubbs Discharge: Date of : 77 Report #: [id number] PHYSICAL EXAMINATION: GENERAL: He is pleasant, alert and cooperative. He is chronically ill appearing. He is obese, although he is undernourished. VITAL SIGNS: Temperature 98.3, pulse 98, respirations 20, blood pressure 164/73. SKIN: Warm, dry, no rashes. 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 LUNGS: Generally clear to auscultation. HEART: Regular. I do not appreciate a murmur. ABDOMEN: Soft, is obese and nontender. EXTREMITIES: Left forearm, the distal aspect fistula is mildly raised. There is some moderate degree of surface inflammation. It is not exquisitely tender at this point. GENITOURINARY AND RECTAL: Deferred. LABORATORY DATA: Blood cultures 2/2 with Gram-positive cocci. Urinalysis, 0-5 white cells. CBC: White count 13.2, H and H 12.5 and 38.6, platelets of 221, he has had the lymphocytopenia of 500. Lactic acid 0.5. Electrolytes: Sodium 135, potassium 5.6, chloride 95, bicarbonate is 26, BUN and creatinine 77/11.6, glucose was 118. LFTs unremarkable. Albumin of 3.7, total protein is elevated at 9.0. ASSESSMENT: Gram-positive septicemia. I suspect source is the fistula. At this point, there is no overt evidence of endovascular infection otherwise such as endocarditis. We will continue empiric therapy. Await specific culture results. At this point, I do not see any other evidence of focal pyogenic infection, certainly could have seeding, will monitor expectantly, continue to pursue any abnormalities, and ask Vascular Surgery to see. <ELECTRONICALLY SIGNED> By: Geovanny Orourke MD 12/04/17 1250 0933 [id number] Orourke MD /nt
[2017-12-04 15:37] VITALS: BP 144/66
--- NOTE | 2017-12-04 18:17 | NUR ---
ASSESSMENT COMPLETED REFER TO COMPUTER CHARTING. NEWS EDITOR TRACKING SR. PATIENT RESTING IN BED AND IN CHAIR THROUGH OUT THIS SHIFT. PATIENT HAD DIALYSIS THIS AM. BED IN LOW AND LOCKED POSITION. CALL LIGHT WITHIN REACH. ON ROOM AIR. IV SALINE LOCKED. PATIENT UP SELF IN ROOM. WILL CONTINUE TO MONITOR THIS SHIFT.
[2017-12-04 19:40] VITALS: BP 194/89
[2017-12-05] VITALS: BP 141/64
--- NOTE | 2017-12-05 02:54 | NUR ---
ASSUMED CARE AT 1940, ASSESSMENT CHARTED. PATIENT ALERT/ORIENTED X4, RESTING IN BED. ON ROOM AIR, SATS NOTED TO BE 67%, PLACED ON 3L/NC WITH SATS 91%. RT NOTIFIED. DR. ORANTES NOTIFIED, ORDERS RECEIVED AND NOTED. UP AD PAIGE. STATES HAVING GENERALIZED PAIN AND BEING NAUSEATED WITH NO EMESIS NOTED, MEDS PER MAR WITH RELIEF NOTED. REFUSING SCD'S. POPSICLE GIVEN, ABLE TO TOLERATE. CALL LIGHT WITHIN REACH, ENCOURAGED TO CALL FOR NEEDS.
[2017-12-05 04:00] VITALS: BP 134/56
[2017-12-05 05:36] LABS: ABSOLUTE BASOPHILS 0.1 thou/uL (0.0-0.2); ABSOLUTE EOSINOPHILS 0.2 thou/uL (0.0-0.7); ABSOLUTE LYMPHOCYTES 1.2 thou/uL (0.8-5.3); ABSOLUTE MONOCYTES 1.3 thou/uL (0.0-1.2); ABSOLUTE NEUTROPHILS 6.2 thou/uL (1.6-8.1); BASOPHILS 0.6 %; EOSINOPHILS 1.9 %; HEMATOCRIT 29.8 % (42.0-52.0); LYMPHOCYTES 13.5 %; MCH 31.3 pg (26.0-34.0); MCHC 33.5 g/dL (28.0-37.0); MCV 93.5 fL (80.0-100.0); MONOCYTES 14.9 %; MPV 9.2 fl. (7.2-11.1); NUCLEATED RBCS 0 /100WBC; PLATELET COUNT* 161 thou/uL (150-400); POLYS 69.1 %; RBC 3.19 mil/uL (4.50-6.00); WBC 8.9 thou/uL (4.0-11.0)
[2017-12-05 05:56] LABS: ALBUMIN 2.9 g/dL (3.4-5.0); CALCIUM 7.5 mg/dL (8.5-10.1); POTASSIUM 4.8 mmol/L (3.5-5.1); TOTAL BILIRUBIN 0.5 mg/dL (<0.1-1.0); TOTAL PROTEIN 7.4 g/dL (6.4-8.2)
[2017-12-05 05:57] LABS: CREATININE 8.2 mg/dL (0.6-1.3)
[2017-12-05 07:53] VITALS: BP 143/60
--- NOTE | 2017-12-05 08:16 | NUR ---
RECEIVED REPORT. ASSUMED CARE OF PT AT 0730. VSS. CARDIAC MONITORING IN PLACE SR. AM ASSESSMENT AND VITALS COMPELTED CHARTED. PT ALERT AND OREINTED X4. PT ON RA. IV SALINE LOCKED. PT SITTING UP IN CHAIR THIS AM. PT REPORTS FEELING BETTER. PT DENIES ANY COMPLAITNS OF PAIN OR DISCOMFORT. PT IS UP AD PAIGE. PT INFORMED OF PLAN OF CARE. PT COMMUNICATES UNDERSTANDING. CALL LIGHT IS WITHIN REACH. WILL CONTINUE TO MONTIOR.
[2017-12-05 11:46] VITALS: BP 179/88
--- NOTE | 2017-12-05 12:57 | NUR ---
Nutrition: RD visited with pt. He was asleep when I entered. Pt stated he sees renal RD who answers all his questions and follows him closely. Pt does HD. Renal diet is ordered. Pt denied any questions at this time. No other nutrition interventions today. Consider Mild risk.
[2017-12-05 13:07] LABS: GLOBULIN TOTAL 3.1 g/dL (2.2-3.9); M-SPIKE Not Observed g/dL (Not Observed)
--- NOTE | 2017-12-05 13:34 | NUR ---
RE: CHF MEDICATION EDUCATION. SPOKE WITH PT ABOUT MEDICATION TO TREAT HEART FAILURE. DISCUSSION FOCUSED ON FUROSEMIDE & CARVEDILOL. REVIEWED RATIONALE FOR TREATMENT & IMPORTANCE OF ADHERING TO PRESCRIBED REGIMEN. REVIEWED ADVERSE REACTIONS & MANAGEMENT OF RISKS. PT EXPRESSED UNDERSTANDING OF ISSUES DISCUSSED. LEFT MEDICATION INFORMATION SHEET WITH PATIENT AND PROVIDED PHARMACY CONTACT INFORMATION FOR ANY FURTHER QUESTIONS OR ISSUES. THANK YOU.
[2017-12-05 15:58] VITALS: BP 137/77
--- NOTE | 2017-12-05 16:57 | NUR ---
VSS. CARDIAC MONITORING IN PLACE WITH NO CHANGES THIS SHIFT. PT REMAINS ON RA. IV SALINE LOCKED. PT HAS HAD NO N/V THIS SHIFT. PT PROGRESSING TOWARDS GOALS. PT HAS VOICED COMPLAINTS OF PAIN OR DISCOMFORT. PT IS UP AD PAIGE. PT DISCHARGE PENDING SENSITIVITY RESULTS OF BLOOD CULTURES. PT INFORMED OF PLAN OF CARE. CALL LIGHT IS WITHIN REACH. WILL CONTINUE TO MONITOR FOR DURAITON OF SHFIT.
[2017-12-05 20:00] VITALS: BP 130/58
[2017-12-06] VITALS: BP 127/52
[2017-12-06 04:00] VITALS: BP 138/61
--- NOTE | 2017-12-06 04:31 | NUR ---
ASSUMED CARE OF AFTER REPORT AT 1930. PT A&OX4.VSS. PHYSICAL ASSESSMENT COMPLETED AND CHARTED. PT ON O2 VIA NC AT 2L WITH 92% O2 SAT. PT TRACING SR BBB ON TELE. PT UP ADLIB TO TOILET. STOOL SENT FOR CULTURE ORDERED. DENIES ANY PAIN OR DISCOMFORT AT THIS TIME. HOURLY ROUNDING OBSERVED. HS REST & SAFETY GOALS ACHIEVED. CALL LIGHT WITHIN REACH.
[2017-12-06 08:00] VITALS: BP 164/88
--- NOTE | 2017-12-06 08:37 | NUR ---
ASSUMED CARE OF PT AT 0730. PT RESTING IN BED WAITING FOR BREAKFAST. PT A&0X4, DENIES ANY PAIN OR SHORTNESS OF BREATH AT THIS TIME. PT TRACING SR WITH BBB ON THE ASSOCIATE TEAM PHYSICIAN. ON 2L NC SAT 97%. PT STATES HE ONLY WEARS OXYGEN AT NOC AT HOME. PT IS A DIALYSIS PT-MWF- FISTULA IN LEFT ARM. PT UP AD PAIGE IN ROOM. PT GOAL FOR TODAY IS DIALYSIS AND THEN DISCHARGE HOME THIS AFTERNOON. AM ASSESSMENT CHARTED. MEDICATIONS PER JUN. PT REPOSITIONS SELF. HOURLY ROUNDING OBSERVED. BED IN LOW POSITION. CALL LIGHT WITHIN REACH. WILL CONTINUE PLAN OF CARE.
--- NOTE | 2017-12-06 11:03 | NUR ---
KEISHA faxed Vanc orders to [facility], in case Pt is ready to dc over the weekend. CM updated Pt. Pt informed that he has decided to quit his job and focus on his health. Pt has applied for disability. At oh, Pt's flowsheets will need to be faxed to [facility] f:[phone]
[2017-12-06 11:58] VITALS: BP 133/70
[2017-12-06 15:17] VITALS: BP 133/70
[2017-12-06] MEDS ORDERED: VANCOMYCIN500 MG/VIA IV (16:17)
--- NOTE | 2017-12-06 16:40 | NUR ---
ORDERS RECEIVED FOR DC WITH IV VANCO WITH DIALYSIS. ATTEMPTED TO CALL [facility], THEY WERE CLOSED AND NOT ABLE TO LEAVE VMAIL ON MACHINE. ASKED NURSE TO HAVE PT REMIND THEM AT NEXT TX THAT ORDERS WERE SENT FOR IV ANTIBX. PT IN DIALYSIS CURRENTLY. ASKED JOVANI HUNT TO REMIND PT TO TELL DIALYSIS THAT HE NEEDS IV VANCO WITH TX.
[2017-12-06 16:45] VITALS: BP 133/70
--- NOTE | 2017-12-06 17:49 | NUR ---
DISCHARGE ORDERS RECEIVED. DISCHARGE INSTRUCTIONS, CARE NOTES, SCRIPTS AND FOLLOW UP APPTS GIVEN TO PT. PT COMMMUNICATES UNDERSTANDING OF DISCHARGE TEACHING. IV AND INSTRUMENT WORKER REMOVED. PT DISCHARGED WITH ALL BELONGINGS AND PAPERWORK VIA WHEELCHAIR WITH NURSING STAFF TO SPOUSE OWN PERSONAL VEHICLE.
== END 2017-12-06 17:50 | disposition home or self-care (01) | DRG 871 ==
LOC: M.ERS 07:36 → M.2W 10:30 → M.TBA-ER 10:30 → M.2W 11:24
PROVIDERS: Emergency Medicine; Internal Medicine; Internal Medicine Nephrology; Specialist; ADMIT Internal Medicine
PROC: 5A1D70Z Performance of Urinary Filtration, Intermittent, Less than 6 Hours Per Day (ICD-10-PCS; principal; 2017-12-02)
PROC: 5A1D70Z Performance of Urinary Filtration, Intermittent, Less than 6 Hours Per Day (ICD-10-PCS; 2017-12-04)
PROC: 5A1D70Z Performance of Urinary Filtration, Intermittent, Less than 6 Hours Per Day (ICD-10-PCS; 2017-12-06)
DX: A41.89 Other specified sepsis (principal); N18.6 End stage renal disease; I13.2 Hypertensive heart and chronic kidney disease with heart failure and with stage 5 chronic kidney disease, or end stage renal disease; Z68.41 Body mass index [BMI] 40.0-44.9, adult; I42.9 Cardiomyopathy, unspecified; I50.32 Chronic diastolic (congestive) heart failure; I77.0 Arteriovenous fistula, acquired; E11.22 Type 2 diabetes mellitus with diabetic chronic kidney disease; E11.65 Type 2 diabetes mellitus with hyperglycemia; E11.51 Type 2 diabetes mellitus with diabetic peripheral angiopathy without gangrene; E87.5 Hyperkalemia; E66.01 Morbid (severe) obesity due to excess calories; Z99.2 Dependence on renal dialysis; Z79.82 Long term (current) use of aspirin; Z79.899 Other long term (current) drug therapy; Z82.49 Family history of ischemic heart disease and other diseases of the circulatory system

== ENCOUNTER 2017-12-09 10:43 | Inpatient (IN) | payer BC, MEDICARE ==
[~2017-12-09] VITALS: Ht 162.6 cm; Wt 112.0 kg
[~2017-12-09 10:43] MED LIST changes: +CARDIZEM CD120 MG PO; +VANCOMYCIN500 MG/VIA IV
[2017-12-09 10:51] VITALS: BP 186/91
[2017-12-09 11:50] LABS: HEMATOCRIT 29.4 % (42.0-52.0); HEMOGLOBIN 9.8 gm/dL (14.0-18.0); MCH 30.9 pg (26.0-34.0); MCHC 33.4 g/dL (28.0-37.0); MCV 92.6 fL (80.0-100.0); MPV 8.4 fl. (7.2-11.1); NUCLEATED RBCS 0 /100WBC; PLATELET COUNT* 233 thou/uL (150-400); RBC 3.17 mil/uL (4.50-6.00); RDW-CV 17.4 % (10.5-14.5); WBC 9.6 thou/uL (4.0-11.0)
[2017-12-09 11:56] LABS: CALCIUM 7.4 mg/dL (8.5-10.1); CREATININE 14.2 mg/dL (0.6-1.3)
[2017-12-09 11:57] LABS: APTT 29.5 Seconds (25.0-31.3); INR 1.1; PROTIME 10.6 Seconds (9.20-11.50)
[2017-12-09 12:00] LABS: ALBUMIN 3.1 g/dL (3.4-5.0); TOTAL BILIRUBIN 0.7 mg/dL (<0.1-1.0); TOTAL PROTEIN 7.8 g/dL (6.4-8.2)
[2017-12-09 12:04] LABS: POTASSIUM 6.7 mmol/L (3.5-5.1)
[2017-12-09 12:28] LABS: ABSOLUTE EOSINOPHILS 0.2 thou/uL (0.0-0.7); ABSOLUTE LYMPHOCYTES 1.2 thou/uL (0.8-5.3); ABSOLUTE MONOCYTES 0.6 thou/uL (0.0-1.2); ABSOLUTE NEUTROPHILS 7.6 thou/uL (1.6-8.1); MYELOCYTES 1 %; PLATELET ESTIMATE ADEQUATE
[2017-12-09 12:29] LABS: ANISOCYTOSIS 1+; POIKILOCYTOSIS 1+
[2017-12-09 13:33] VITALS: BP 152/102
[2017-12-09 14:15] VITALS: BP 182/87
--- NOTE | 2017-12-09 15:14 | EKG ---
[place] [address] ELECTROCARDIOGRAM REPORT Name: SAMANTA OGLESBY Room: [address] ADM IN .R.#: [id number] Admission: 12/09/17 Attend Phys: Manfred Martin MD Discharge: Date of : 77 Report #: [id number] THIS REPORT FOR: //name// [facility] ED Test Date: 2017-12-09 Test Time: 11:50:30 Pat Name: SAMANTA OGLESBY Department: Room: [facility] Gender: M Trouble Dispatcher: JAYNE : 1975 Requested By: Charlee Kidd Order Number: [id number] MD: Austin Spencer Measurements Intervals [place] Rate: 76 P: 24 GA: 211 QRS: 3 QRSD: 151 T: 41 QT: 465 QTc: 523 Interpretive Statements Sinus rhythm Prolonged GA interval Probable left atrial enlargement IVCD Left ventricular hypertrophy Prolonged QT interval Baseline wander in lead(s) V2 Compared to ECG 12/02/2017 08:44:52 First degree AV block now present Prolonged QT interval now present T-wave abnormality no longer present ST (T wave) deviation no longer present Electronically Signed On 12-09-2017 15:13:48 CDT by Austin Spencer [email or web address] <ELECTRONICALLY SIGNED> By: Austin Spencer MD, [facility] 12/09/17 1513 1150 1150 Austin Spencer MD, [facility] /EPI
[2017-12-09 16:16] VITALS: BP 175/83
--- NOTE | 2017-12-09 17:45 | NUR ---
PT. ARRIVED ON UNIT AT APPROX. 1410. PT A/OX4, VSS, MONITOR PLACED TRACING SR. PT. REPORTS GENERAL ACHES AND SHORTNESS OF BREATH. PLACED ON 3L NC FOR COMFORT. LEFT ARM AV FISTULA WITH ABCESS LOOKING AREA (PHOTO TAKEN) FULL ASSESSMENT AND ADMISSION PROCESS COMPLETED AND PT. TRANSFERED TO IR FOR TUNNELED DIALYSIS CATHETER TODAY. PT. COULD NOT TOLERATE LAYING DOWN FOR PROCEDURE, SO TEMP. DIALYSIS CATHETER PLACED INSTEAD. CONTACTED DR. GUTIERRES AND EQUIPMENT MECHANIC SPECIALIST FOR TREATMENT TODAY (M W NORMALLY) . PT. TRANSFERED TO DIALYSIS AT APPROX. 1730.
[2017-12-09 20:00] VITALS: BP 152/77
[2017-12-09 22:31] VITALS: BP 149/63
[2017-12-10 04:00] VITALS: BP 132/52
[2017-12-10 05:15] LABS: HEMATOCRIT 29.9 % (42.0-52.0); HEMOGLOBIN 9.9 gm/dL (14.0-18.0); MCH 30.6 pg (26.0-34.0); MCV 92.6 fL (80.0-100.0); MPV 8.2 fl. (7.2-11.1); RBC 3.23 mil/uL (4.50-6.00); WBC 15.8 thou/uL (4.0-11.0)
--- NOTE | 2017-12-10 05:47 | NUR ---
ASSUMED CARE AT 1999, ASSESSMENT CHARTED. PATIENT CURRENTLY IN DIALYSIS, RETURNED TO FLOOR AT 2215. IV VANCO GIVEN PER JUN. DENIES NEEDS. STATES HAVING PAIN 04/24, REASSURANCE GIVEN. HS SNACK GIVEN. UP AD PAIGE. REFUSING SCD'S. MEDS PER JUN. CALL LIGHT WITHIN REACH, ENCOURAGED TO CALL FOR NEEDS.
[2017-12-10 06:14] LABS: ALBUMIN 3.1 g/dL (3.4-5.0); CALCIUM 7.9 mg/dL (8.5-10.1); MAGNESIUM 2.3 mg/dL (1.8-2.4)
[2017-12-10 06:17] LABS: CREATININE 8.2 mg/dL (0.6-1.3); POTASSIUM 5.5 mmol/L (3.5-5.1)
--- NOTE | 2017-12-10 07:43 | NUR ---
NOTIFIED OF BEING NPO FOR SURGERY, STATES UNDERSTANDING. REPORT GIVEN TO ONCOMING NURSE. WILL MONITOR.
[2017-12-10 08:00] VITALS: BP 182/89
--- NOTE | 2017-12-10 10:41 | NUR ---
Pt A&O. Known to this CM. Pt recently dc from hospital last Saturday. Independent, no DME. No hx of HH or SNF. Supportive family. Current at [facility] on a MWF schedule. CM to fax flowsheets at pr. Following.
--- NOTE | 2017-12-10 12:19 | NUR ---
ASSUMED CARE OF PATIENT THIS AM AT 0730. PATIENT IS ALERT AND ORIENTED X 4. HE C/O NECK SORENESS ANT TEMPORARY DIALYSIS INSERTION SITE. PATIENT KEPT NPO FOR PLANNED VASCULAR PROCEDURE. TELE SHOWS SR WITH BBB. PATIENT TAKEN TO PACU PER W/C FOR PROCEDURE.
--- NOTE | 2017-12-10 12:25 | OP ---
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 SURGEON: Nolberto Sandoval DO. SEAT COVERER: OMAR Samayoa. ANESTHESIA: LMA. ESTIMATED BLOOD LOSS: 150 mL. FLUIDS: See anesthesia report. URINE OUTPUT: None. SPECIMENS: The PTFE graft from the left forearm, that was sent for culture. IMPLANTS: A 6 mm Artegraft tailored in an uninfected plane along the volar aspect of the left forearm, he had a good palpable thrill within the new graft. CLINICAL HISTORY: The patient is a 42-year-old man with end-stage renal disease, has been dialyzing through a left radiocephalic arteriovenous access. This was previously a fistula that had degenerated to an aneurysm and then subsequently had an interposition graft placed last year, has been dialyzing well, presented with swelling and induration of the left wrist, this was felt possibly secondary to infection or pseudoaneurysm. He was brought in today for revision. DESCRIPTION OF PROCEDURE: After informed consent was obtained, the patient was taken to the operating room and placed on the OR bed in supine position, he was administered LMA anesthesia by anesthesia team. Left upper extremity was prepped and draped in usual sterile fashion. Full timeout was performed identifying correct patient and procedure. Next, a longitudinal incision was made in the mid upper forearm. Dissection was carried down through skin and subcutaneous tissue both sharp and electrocautery[place] [address] OPERATIVE REPORT Name: SAMANTA OGLESBY Room: [address] IN .R.#: [id number] Admission: 12/09/17 Attend Phys: Manfred Martin MD Discharge: Date of : 77 Report #: [id number] forearm was circumferentially mobilized proximally and distally and controlled with Silastic vessel loop in Abbott fashion. I then made an incision through the old anastomotic incision, the fistula and then again carried dissection down through skin and subcutaneous tissue both sharp and electrocautery. The vein was circumferentially mobilized and controlled with Silastic vessel loop in Abbott fashion. At this point, I then tunneled a 6 mm Artegraft in plane, the more volar aspect of the forearm was tunneled well without issue. I tunneled it while it was distended in heparinized saline and marked to prevent axial rotation. I then trimmed the Artegraft to length and tailored the proximal anastomosis. I then transected the vein from the proximal anastomosis with a previous graft. I then tailored the vein liu as well. I then performed an end-to-end anastomosis with the vein and the Artegraft with a running 6-0 Prolene suture. I then flushed the Artegraft and forward bled it and then flushed it with heparinized saline. I then tailored the distal vein liu, transected the vein and ligated the proximal stump with a 0 silk suture ligature. I then tailored the distal vein liu and then again performed an end-to-end anastomosis with running 6-0 Prolene suture. I then closed these incisions and then once hemostasis was ensured, it should be noted that prior to creating the anastomosis, I did administer 5000 units of intravenous heparin and then after the flow was restored in the graft, I then partially reversed with 40 mg protamine. Once hemostasis was ensured, the wounds were irrigated with antibiotic solution. They were closed in layers with 3-0 Vicryl and 4-0 Monocryl in the skin and Dermabond was applied. I then made a counterincision in the mid forearm over the graft. There was some purulent material that was expressed. I then removed the graft in its entirety and sent this for culture. I then thoroughly irrigated the wound and ligated the distal venous anastomosis with a Prolene suture. Once hemostasis was ensured, I partially closed the wound with some 3-0 Vicryl on the subcutaneous layer and some jace in the skin, packed the wound with Aquacel Ag, will have to continue with local wound care. All sponge, sharp and instrument counts reported correct x 2. He tolerated the procedure well and was transferred to recovery in stable condition and he will need his temporary catheter converted to a tunneled catheter in the near future to allow his new access and wound to heal. <ELECTRONICALLY SIGNED> By: Nolberto Sandoval DO 12/10/17 1225 1136 [id number] Sandoval DO /nt
[2017-12-10 12:45] VITALS: BP 99/45
--- NOTE | 2017-12-10 13:28 | CON ---
[address] [address] CONSULTATION Name: SAMANTA OGLESBY Room: [address] IN M.R.#: [id number] Admission: 12/09/17 Attend Phys: Manfred Martin MD Discharge: Date of : 77 Report #: [id number] THIS REPORT FOR: //name// CC: [facility] physician/PCP Manfred Martin CONSULTING PHYSICIAN: Manfred Martin MD REASON FOR CONSULTATION: End-stage kidney disease. HISTORY OF PRESENT ILLNESS: A 42-year-old gentleman who was recently hospitalized here comes in with inability to get dialysis today because of infected AV graft. He has been seen by Vascular Surgery and about 10 days ago had angioplasty done by Dr. Castle. He had a temporary dialysis catheter placed today as he is needing dialysis and the plan is for him to go to surgery tomorrow for a graft revision. He feels a bit uncomfortable secondary to the fluid overload. He tells me he places about 7-8 kilos above his dry weight. He otherwise is in no distress and does not have any other complaints at present time. REVIEW OF SYSTEMS: Constitutional, psych, heme, eyes, ENT, respiratory, cardiac, GI, and endocrine, all negative except as documented above. PAST MEDICAL HISTORY: End-stage kidney disease, diabetes, hypertension, dyslipidemia and history of right hip fracture. SOCIAL HISTORY: No tobacco. FAMILY HISTORY: Grandmother had kidney disease and was on dialysis. MEDICATIONS: Reviewed. PHYSICAL EXAMINATION: VITAL SIGNS: Blood pressure is 152/102, pulse 77, respirations 18 and temperature 36.1. GENERAL: No acute distress. EYES: Extraocular movements intact. EARS: Externally normal. CARDIOVASCULAR: Regular rate. LUNGS: Diminished breath sounds. ABDOMEN: Soft. LYMPHATICS: Positive edema. PSYCHIATRIC: Awake and alert. LABORATORY DATA: White cell count 9.6, hemoglobin 9.8 and platelets 233. Sodium 133, potassium 6.7, chloride 94, bicarbonate 24, BUN 124, creatinine 14.2, glucose 124, calcium 7.4 and albumin 3.1. [place] [address] CONSULTATION Name: SAMANTA OGLESBY Room: [address] IN ..#: [id number] Admission: 12/09/17 Attend Phys: Manfred Martin MD Discharge: Date of : 77 Report #: [id number] ASSESSMENT: 1. End-stage kidney disease, hemodialysis on Saturday, Saturday and Saturday at the [facility]. 2. Hyperkalemia. 3. Hyponatremia. 4. Volume overload. 5. Diabetes. 6. Hypertension. 7. Infected AV graft. 8. Anemia of chronic disease. 9. Secondary hyperparathyroidism on sevelamer. PLAN: 1. Temporary dialysis catheter has been placed. Hemodialysis will be done tonight. 2. We will plan ultrafiltration with dialysis tomorrow. 3. Low potassium and low sodium diet along with a 1.5 L per day fluid restriction. 4. He is on tele monitoring. 5. We will follow closely and send blood cultures. Thank you for requesting my opinion in the care and management of this patient. <ELECTRONICALLY SIGNED> By: Tyesha Castrejon MD 12/10/17 1328 1610 [id number] Castrejon MD /nt
[2017-12-10 17:30] VITALS: BP 105/55
[2017-12-10 20:00] VITALS: BP 111/55
[2017-12-11] VITALS (7 sets, daily range): BP systolic 88–121; BP diastolic 40–58
[2017-12-11 04:33] LABS: HEMOGLOBIN 9.6 gm/dL (14.0-18.0); MCH 30.7 pg (26.0-34.0); MCHC 33.1 g/dL (28.0-37.0); MCV 92.8 fL (80.0-100.0); MPV 8.3 fl. (7.2-11.1); RBC 3.13 mil/uL (4.50-6.00); RDW-CV 17.1 % (10.5-14.5); WBC 11.2 thou/uL (4.0-11.0)
[2017-12-11 04:44] LABS: CALCIUM 8.1 mg/dL (8.5-10.1); CREATININE 7.4 mg/dL (0.6-1.3); MAGNESIUM 2.2 mg/dL (1.8-2.4); PHOSPHORUS* 8.2 mg/dL (2.5-4.9); POTASSIUM 5.6 mmol/L (3.5-5.1)
[2017-12-11 04:45] LABS: ALBUMIN 3.2 g/dL (3.4-5.0); CALCIUM 7.9 mg/dL (8.5-10.1); CREATININE 7.4 mg/dL (0.6-1.3); PHOSPHORUS* 8.2 mg/dL (2.5-4.9); POTASSIUM 5.7 mmol/L (3.5-5.1)
--- NOTE | 2017-12-11 05:21 | NUR ---
PATIENT PROGRESSING TOWARDS GOALS: PATIENT HAS RESTED COMFORTABLY THIS SHIFT. PATIENT REMAINS ON 2L O2 NC. BP SOFT (88/40) AT MIDNIGHT. BLOOD PRESSURE RECHECKED ONE HOUR LATER AND WNL (121/55). 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 REMAINS AT BEDSIDE. PATIENT NPO FOR TUNNELED DIALYSIS CATHETER PLACEMENT TODAY. PATIENT AWARE AND COMPLIANT. CONSENT SIGNED AND IN CHART. CALL LIGHT WITHIN REACH. HOURLY ROUNDING OBSERVED.
--- NOTE | 2017-12-11 10:23 | NUR ---
CALLED DR FOLEY OFFICE [phone]. SPOKE WITH FRONT OFFICE THEY HAD MR KEYSHA A MESSAGE ON DR FOLEY NURSE MESSAGES RE PTS BLOOD CULTURES WHICH ARE + FOR GRAM + COCCI.
--- NOTE | 2017-12-11 10:30 | NUR ---
ASSUMED CARE OF PT ON HIS RETURN FROM DYALYSIS. ASSESSED PT AND DOCUMENTED. SEE CHART. PT IS SR ON CARDIAC MONITER. HE REMAINS NPO FOR PENDING SURGERY. HE IS A&O WITH NO C/O PAIN.PER DARIAN AT [facility] 2.3L OFF ND 2 KILOS BELOW HIS DRY WT. VSS WNL. PT IS AFEBRILE. CALL LIGHT IS IN REACH. WM.
--- NOTE | 2017-12-11 10:45 | NUR ---
NOTIFIED DR FOLEY OFFICE DYALYSIS AND DR BELLO RE + FOR GRAM + COCCI.
--- NOTE | 2017-12-11 13:55 | NUR ---
NIKKI FROM IR REC CALL FROM [facility] SURGERY TODAY. ORDERED LUNCH FOR PT.
--- NOTE | 2017-12-11 14:14 | NUR ---
PER RADHA DELACRUZ CHANGED ANW WILL NEED TO BE CHANGED DAILY WITH [facility]. PT WILL NEED HOME HEALTH. DARRIUS TO SET UP.
--- NOTE | 2017-12-11 17:46 | NUR ---
PT HAS RESTED IN HIS ROOM AND WATCHED TV. SURGERY WAS CANCELED TODAY R/T +GRAM NEG COCCI. PT HAS NO S OR SX OF ADVERSE REACTION TO ABT. EDUCATION GIVEN ON DEMAND. HOURLY ROUNDING COMPLETE.
--- NOTE | 2017-12-11 20:00 | NUR ---
RECEIVED REPORT AND ASSUMED CARE OF PT, ASSESSMENT COMPLETED. LONG DISCUSSION ABOUT BEING HEALTHY SO COULD GET KIDNEY TRANSPLANT. O2 SAT 88% ON RA, O2 AT 2L/NC APPLIED WITH SAT OF 97%. TELEMETRY ON SHOWING SR. AT BEDSIDE. WILL CONT TO MONITOR AND ASSIST NEEDED.
[2017-12-12] VITALS: BP 114/66
[2017-12-12 04:00] VITALS: BP 122/70
[2017-12-12 04:30] LABS: HEMATOCRIT 28.5 % (42.0-52.0); HEMOGLOBIN 9.4 gm/dL (14.0-18.0); MCH 30.8 pg (26.0-34.0); MCV 93.2 fL (80.0-100.0); RBC 3.06 mil/uL (4.50-6.00); RDW-CV 17.1 % (10.5-14.5); WBC 8.8 thou/uL (4.0-11.0)
[2017-12-12 04:46] LABS: MAGNESIUM 2.3 mg/dL (1.8-2.4)
[2017-12-12 04:53] LABS: POTASSIUM 4.7 mmol/L (3.5-5.1)
[2017-12-12 04:54] LABS: CREATININE 6.2 mg/dL (0.6-1.3)
--- NOTE | 2017-12-12 07:15 | NUR ---
CHANGE OF SHIFT BEDSIDE REPORT GIVEN PATIENT SEEN AT BEDSIDE, IN BED RESTING ASSUMED PATIENT CARE
--- NOTE | 2017-12-12 07:33 | NUR ---
PT STATES DIFFICULTY SLEEPING, HS MEDS GIVEN, PT SLEPT WELL AFTER THIS. PAIN MED GIVEN FOR C/O RT NECK PAIN, EFFECTIVE. TELEMETRY CONT TO SHOW SR. ASSESSMENT UNCHANGED. HS GOALS OF REST AND SAFETY ACHIEVED. HOURLY ROUNDING OBSERVED.
[2017-12-12 08:00] VITALS: BP 129/59
--- NOTE | 2017-12-12 10:00 | NUR ---
Nutrition: Pt assessed for high BMI. Wt is at its usual: 247#. Pt received HD. He follows a renal RD and is familiar with diet. Renal diet ordered for him. 1500mL fluid restriction. Admitted for AV fistula thrombus. No nutrition interventions needed today. Low risk.
[2017-12-12 12:00] VITALS: BP 124/52
[2017-12-12 16:15] VITALS: BP 106/39
--- NOTE | 2017-12-12 18:24 | NUR ---
PATIENT REMNAINS A AND O X 4 SR 60S LUNGS CTA/DIM IN BASES ON RA, O2 SATS HIGH 90S GOOD APPETTIE LAST BM TODAY MINIMAL UO-150CC UP INDEPENDENT IV L FA 20 GA SL TEMP DIALYSIS LINE R EJ L FA GRAFT NO C/O PAIN ABN LABS MONITORED-BUN 53, CR 6.2, HGB 9.4, NA 133 ACCUCHECKS 136/245/136
[2017-12-12 20:00] VITALS: BP 125/67
--- NOTE | 2017-12-12 20:00 | NUR ---
RECEIVED REPORT AND ASSUMED CARE OF PT, ASSESSMENT COMPLETED. SITTING IN CHAIR VISITING WITH FAMILY. DISCUSSED POSSIBLY HAVING AV GRAFT REVISION TOMORROW DEPENDING ON BLOOD CULTURES. TEMPORARY CATH NOTED TO RT JUGULAR. BANDAID DRSG NOTED TO LT FOREARM, DRY AND INTACT. TELEMETRY ON SHOWING SR. NO COMPLAINTS AT THIS TIME. WILL CONT TO MONITOR AND ASSIST NEEDED.
[2017-12-13] VITALS: BP 130/66
[2017-12-13 04:00] VITALS: BP 101/32
[2017-12-13 04:25] LABS: HEMATOCRIT 28.6 % (42.0-52.0); HEMOGLOBIN 9.5 gm/dL (14.0-18.0); MCH 30.9 pg (26.0-34.0); MCHC 33.3 g/dL (28.0-37.0); MCV 92.9 fL (80.0-100.0); RBC 3.08 mil/uL (4.50-6.00); WBC 7.7 thou/uL (4.0-11.0)
[2017-12-13 04:34] LABS: MAGNESIUM 2.4 mg/dL (1.8-2.4); POTASSIUM 5.3 mmol/L (3.5-5.1)
[2017-12-13 04:36] LABS: CREATININE 8.7 mg/dL (0.6-1.3)
--- NOTE | 2017-12-13 06:15 | NUR ---
SLEPT WELL TONIGHT. NPO SINCE WI FOR POSS SURGERY. BLOOD CULTURE RESULTS THIS AM SHOWING GRAM + COCCI. WILL HAVE DIALYSIS THIS AM. PO PAIN MED GIVEN X1 AND EFFECTIVE FOR RT NECK AND ARM PAIN. ASSESSMENT UNCHANGED. TELEMETRY CONT TO SHOW SR. ACHIEVED HS GOALS OF REST AND SAFETY. HOURLY ROUNDING OBSERVED.
--- NOTE | 2017-12-13 07:20 | NUR ---
BEDSIDE REPORT GIVEN PATIENT SEEN IN BED ASLEEP ASSUMED PATIENT CARE
--- NOTE | 2017-12-13 14:32 | NUR ---
FINANCIAL ECONOMIST SPOKE TO THE PATIENT TO DISCUSS DISCHARGE PLANNING NEEDS AND HH AT D/C. PATIENT CHOSE [facility] FOR HH. FINANCIAL ECONOMIST SPOKE TO BRIAN WITH [facility] TO INFORM OF THE REFERRAL AND FAXED [facility] THE PATIENT FACESHEET AND H&P FOR INITAL REFERRAL. CM WILL NEED TO FAX [facility] D/C ORDERS WITH WOUND CARE ORDER WHEN AVAILABLE. PATIENT WILL ALSO NEED ABT ORDERS AND FLOW SHEETS FAXED TO PATIENT'S DIALAYSIS CLINIC AT D/C. CM WILL REMAIN AVIALABEL TO ASSIST AND FOLLOW NEEDED.
[2017-12-13 16:23] VITALS: BP 142/66
--- NOTE | 2017-12-13 18:05 | NUR ---
PATIENT REMINS A AND O X 4 SR LUNGS CTA/DIM/RA O2 SATS HIGH 90S GOOD APPETITE LAST BM UNKNOWN MINIMAL UO-45ML UP INDEPENDENT L FA WOUND PACKING AND GAUAZE 4X4, KERLEX WRAP C/D/I IV 22 R FA DIALYSIS LINE R NECK DIALYSIS TODAY NO C/O PAIN CALL LIGHT IN REACH AND INSTRUCTION GIVEN AND FOLLOWED ACCUCHECKS 117/121/187
[2017-12-13 19:30] VITALS: BP 118/59
[2017-12-14 04:00] VITALS: BP 150/78
[2017-12-14 05:26] LABS: CALCIUM 8.3 mg/dL (8.5-10.1); MAGNESIUM 2.3 mg/dL (1.8-2.4); POTASSIUM 4.8 mmol/L (3.5-5.1)
[2017-12-14 05:30] LABS: CREATININE 6.4 mg/dL (0.6-1.3)
--- NOTE | 2017-12-14 06:50 | NUR ---
RECEIVED REPORT AND ASSUMED CARE AT 1900. VSS. CARDIAC MONITORING IN PLACE. PT DENIES ANY COMPLAINTS OF PAIN. ASSESSMENT COMPLETED CHARTED. DISCUSSED PLAN OF CARE WITH PT, VERBALIZED UNDERSTADING. PT UP AD PAIGE IN ROOM, ON RA, STATES HE WEARS 2L AT NOC. PT HAD DX MRSA IN HIS BLOOD 12/02/17, ISOLATION CART PLACED BY PT DOOR, PRECAUTIONS REMAIN THROUGHOUT SHIFT. BED LOCKED IN LOWEST POSITION, CALL LIGHT WITHIN REACH. HOURLY ROUNDING COMPLETED AND ALL NEEDS MET.PT ON LOW SODIUM/LOW POTASSIUM/ 1500ML RESTRICTION DIET. WILL CONTINUE TO MONITOR FOR REMAINDER OF THE SHIFT
[2017-12-14 08:15] VITALS: BP 166/92
--- NOTE | 2017-12-14 08:15 | NUR ---
ASSUMED PT. CARE AND RECEIVED REPORT AT 0730. PT A/OX4, VSS, MONITOR ON TRACING SR. PT. DENIES CURRENT PAIN. ON 2L FOR COMFORT AT 98%. FULL ASSESSMENT COMPLETED, REFER TO CHARTING. DRESSING TO LEFT FOREARM REMAINS INTACT. CALL LIGHT IN REACH, WILL CONTINUE WITH PLAN OF CARE.
[2017-12-14 11:34] VITALS: BP 138/72
[2017-12-14 15:42] VITALS: BP 140/69
[2017-12-14 19:30] VITALS: BP 150/72
[2017-12-15] VITALS: BP 117/48
[2017-12-15 04:39] VITALS: BP 155/69
--- NOTE | 2017-12-15 04:56 | NUR ---
RECEIVED REPORT AND ASSUMED CARE AT 1900. VSS. CARDIAC MONITORING IN PLACE. PT DENIES ANY COMPLAINTS OF PAIN. ASSESSMENT COMPLETED CHARTED. DISCUSSED PLAN OF CARE WITH PT. VERBALIZED UNDERSTANDING. MEDICATION ADMIN PER EMAR. PT UP AD PAIGE IN ROOM, ON RA. BED LOCKED IN LOWEST POSITION, CALL LIGHT WITHIN REACH. HOURLY ROUNDING COMPLETED AND ALL NEEDS MET. WILL CONTINUE TO MONITOR
[2017-12-15 05:09] LABS: HEMATOCRIT 26.7 % (42.0-52.0); MCH 31.2 pg (26.0-34.0); MCHC 33.7 g/dL (28.0-37.0); MCV 92.5 fL (80.0-100.0); MPV 8.3 fl. (7.2-11.1); RBC 2.88 mil/uL (4.50-6.00); RDW-CV 16.7 % (10.5-14.5)
[2017-12-15 05:16] LABS: CALCIUM 8.2 mg/dL (8.5-10.1); MAGNESIUM 2.6 mg/dL (1.8-2.4); POTASSIUM 5.5 mmol/L (3.5-5.1); TOTAL BILIRUBIN 0.4 mg/dL (<0.1-1.0); TOTAL PROTEIN 7.3 g/dL (6.4-8.2)
[2017-12-15 05:21] LABS: CREATININE 8.7 mg/dL (0.6-1.3)
[2017-12-15 08:15] VITALS: BP 170/74
--- NOTE | 2017-12-15 08:30 | NUR ---
ASSUMED PT. CARE AND RECEIVED REPORT AT 0730. PT. A/OX4, VSS, MONITOR ON TRACING SR. PT. UP TO CHAIR FOR BREAKFAST. GIVEN WARMED PRUNE JUICE WITH MIRALAX THIS MORNING. FULL ASSESSMENT COMPLETED, REFER TO CHARTING. CALL LIGHT IN REACH, WILL CONTINUE WITH PLAN OF CARE.
[2017-12-15 11:44] VITALS: BP 163/75
[2017-12-15 16:16] VITALS: BP 181/80
[2017-12-15 21:11] VITALS: BP 139/64
[2017-12-16] VITALS: BP 178/82
[2017-12-16 04:00] VITALS: BP 129/52
--- NOTE | 2017-12-16 05:01 | NUR ---
Assumed care of patient at 1930. Physical assessment performed and documented. Hourly rounding performed for patient safety. Patient A&O x4; up ad pee in room. SR noted on telemetry; O2 saturation 98% on room air; wears 2L at HS. Pain medication given see JUN. Right FA IVL intact and flushed. Left FA fistula dressing dry and intact. Call light within patient's reach. Will continue to monitor.
[2017-12-16 08:20] LABS: CREATININE 11.2 mg/dL (0.6-1.3)
[2017-12-16 08:23] LABS: POTASSIUM 7.2 mmol/L (3.5-5.1)
[2017-12-16 08:50] VITALS: BP 180/81
--- NOTE | 2017-12-16 09:18 | NUR ---
ASSUMED PT. CARE AND RECEIVED REPORT AT 0730. PT A/OX4, VSS, MONITOR ON TRACING SR BBB. PT. DENIES CURRENT PAIN/SOB. ON RA @ 96%. FULL ASSESSMENT COMPLETED, REFER TO CHARTING. PLAN FOR DIALYSIS TODAY, CRITICAL LAB 7.2 K+, DR. LOO NOTIFIED. CALL LIGHT IN REACH, WILL CONTINUE WITH PLAN OF CARE.
[2017-12-16 15:33] VITALS: BP 135/117
--- NOTE | 2017-12-16 19:01 | NUR ---
PT. STABLE THROUGH OUT SHIFT. COMPLETED DIALYSIS WITH OUT INCIDENT. NO COMPLAINTS. ANTICIPATE DC TOMORROW IF LINE CAN BE PLACED. HOURLY ROUNDING COMPLETE THROUGH OUT THE DAY FOR PT. SAFETY.
[2017-12-16 20:00] VITALS: BP 154/75
[2017-12-17] VITALS (9 sets, daily range): BP systolic 113–166; BP diastolic 47–77
--- NOTE | 2017-12-17 07:08 | NUR ---
ASSUMED PT CARE REPORT RECEIVED FROM NURSE. PT IS ALERT ORIENTED X4. FAMILY AT BEDSIDE. HIS O2 SATURATION IN 97% ON RA. HIS VS ARE WITHIN NORMAL LIMIT. ISOLATION CONTACT FOR MRSA MAINTAINED. PT SLEPT SURING THE NIGHT. PAIN MED ADMINISTERED.
--- NOTE | 2017-12-17 14:00 | NUR ---
CREATIVE PRODUCER SPOKE TO THE PATIENT TO DISCUSS DISCHARGE PLANNING NEEDS AND HH AT D/C. PATIENT REQUEST HH WITH [facility]. CREATIVE PRODUCER FAXED DISCHARGE ORDERS TO [facility] AND SPOKE TO KEYANA TO INFORM OF THE PATIENT'S D/C. CREATIVE PRODUCER CONTACTED LAURA TO INFORM OF PATIENTS D/C AND FAXED D/C ORDERS AND ORDER TO RESUME VANCO WITH DIALAYSIS. CM WILL REMAIN AVAILABLE TO ASSIST AND FOLLOW NEEDED.
--- NOTE | 2017-12-17 15:18 | NUR ---
PATIENT HAS BEEN ALERT AND ORIENTED TODAY VERY PLEASANT. WENT DOWN FOR FISTULA TUNNELING PROCEDURE TODAY, TOLERATED WELL. PATIENT HAS NO COMPLAINTS OF ANY KIND TODAY. PATIENT IS BEING DISCHARGED TO HOME WITH HOME HEALTH AND WILL CONTINUE TO HAVE VANCO GIVEN AT DIALYSIS. LEFT VIA WHEELCHAIR TO GO HOME WITH HOME HEALTH.
--- NOTE | 2017-12-17 15:43 | OP ---
[address] [address] OPERATIVE REPORT Name: SAMANTA OGLESBY Room: [address] IN M.R.#: [id number] Admission: 12/09/17 Attend Phys: Manfred Martin MD Discharge: 12/17/17 Date of : 77 Report #: [id number] THIS REPORT FOR: //name// CC: [facility] physician/PCP Manfred Martin DATE OF SERVICE: 12/17/2017 PREOPERATIVE DIAGNOSIS: End-stage renal disease, status post revision infected left upper extremity arteriovenous graft. POSTOPERATIVE DIAGNOSIS: End-stage renal disease, status post revision infected left upper extremity arteriovenous graft. OPERATION: Removal of temporary dialysis catheter and placement of a tunneled dialysis catheter. SURGEON: Nolberto Sandoval DO. BUILDINGS AND GROUNDS COORDINATOR: OMAR Roberson. ANESTHESIA: Sedation with local. ESTIMATED BLOOD LOSS: 25 mL. FLUIDS: Less than 100 crystalloid. URINE OUTPUT: None. SPECIMENS: None. COMPLICATIONS: None. IMPLANTS: A Bard RetrO 19-cm tunneled dialysis catheter in the right IJ. FINDINGS: Right IJ was soft and compressible, suitable for access. Catheter was positioned with the tip at the right atrium SVC junction. Catheter aspirated and flushed easily, without issue. CLINICAL HISTORY: The patient is a 42-year-old man with end-stage renal disease, who was admitted with an infected left upper extremity arteriovenous graft. This required open revision after a temporary dialysis catheter was placed. Blood cultures are now no growth to date and he is in need to exchange the temporary line for a tunneled line while his graft revision heals. DESCRIPTION OF PROCEDURE: After informed consent was obtained, [place] [address] OPERATIVE REPORT Name: OGLESBY,SAMANTA R Room: [address] IN M.R.#: [id number] Admission: 12/09/17 Attend Phys: Manfred Martin MD Discharge: 12/17/17 Date of : 77 Report #: [id number] taken to the angio suite and placed on the angio bed in the supine position. His right neck was prepped and draped in the usual sterile fashion. Full timeout was performed identifying correct patient and procedure. Next, the temporary line was removed without issue and intact. Once hemostasis was ensured, the skin and subcutaneous tissues in the right neck were anesthetized with local anesthetic. Using ultrasound guidance, the right internal jugular vein was identified and was accessed with an 18-gauge needle. These images were preserved. Using Seldinger technique, a wire was passed using fluoroscopic guidance in the IVC. Then, I made a skin incision on the right neck and passed the introducer sheath. I passed the second wire again under fluoroscopic guidance to the IVC. I then sterilely dilated the tract. I then passed a catheter over the wire under fluoroscopic guidance with the tip at the right atrium SVC junction. The right chest wall was then anesthetized with local anesthetic. Again, I made a small stab incision on the right chest wall. The tunneler was passed up to the neck incision. The tunneler was passed in a retrograde fashion using standard technique, again under fluoroscopic guidance to ensure no kink or twist. The catheter was then trimmed to length. Both ports were applied. Both ports aspirated and flushed well. Both ports were then packed with concentrated heparin. Catheter was then secured to the chest wall with 3-0 Monocryl suture. The neck incision closed with 3-0 Monocryl suture. Sterile dressings were applied. All sponge, sharp and instrument counts reported correct x 2. He tolerated the procedure well and was transferred to recovery in stable condition. <ELECTRONICALLY SIGNED> By: Nolberto Sandoval DO 12/17/17 1543 1210 1322Ajune Sandoval DO /nt
[2017-12-18 11:28] VITALS: BP 113/47
--- NOTE | 2018-01-24 09:58 | OP ---
[address] [address] OPERATIVE REPORT Name: SAMANTA OGLESBY Room: [address] IN M.R.#: [id number] Admission: 12/09/17 Attend Phys: Manfred Martin MD Discharge: 12/17/17 Date of : 77 Report #: [id number] THIS REPORT FOR: //name// CC: [facility] physician/PCP Manfred Martin DATE OF SERVICE: 12/09/2017 PREOPERATIVE DIAGNOSIS: End-stage renal disease, in need of emergent dialysis. POSTOPERATIVE DIAGNOSIS: End-stage renal disease, in need of emergent dialysis. PROCEDURES: 1. Right internal jugular temporary dialysis catheter placement. 2. Ultrasound guidance for access with image saved. SURGEON: Josue Bee MD MERCHANDISING DIRECTOR: Dr. Alarcon. COMPLICATIONS: None. ESTIMATED BLOOD LOSS: Minimal. SPECIMEN: None. ANESTHESIA: Local. INDICATION FOR PROCEDURE: The patient is a very pleasant male patient who has end-stage renal disease, on dialysis. His graft is infected and is no longer usable. He is going to undergo graft revision tomorrow; however, he needs to dialysis tonight in preparation for this. He has no other access. Informed consent was obtained from the patient with risks including, but not limited to bleeding, infection, need for further surgery, pain, , heart attack, stroke, pneumothorax. The patient understood these risks and agreeable to proceed. DESCRIPTION OF PROCEDURE: At the patient's bedside with him sitting up due to shortness of breath, I prepped and draped his right neck in usual sterile fashion. I infused 10 mL of 1% lidocaine in the right neck. Under ultrasound guidance with an image saved, I cannulated the right internal jugular vein without difficulty. I used Seldinger technique to exchange out for sequential dilators and then the catheter. I secured the catheter [place] [address] OPERATIVE REPORT Name: MENDELSAMANTA Chanel Room: [address]#: [id number] Admission: 12/09/17 Attend Phys: Manfred Martin MD Discharge: 12/17/17 Date of : 77 Report #: [id number]. I dressed in standard fashion. Both ports flushed without difficulty. The patient was started on dialysis immediately. <ELECTRONICALLY SIGNED> By: Josue Bee MD 01/24/18 0958 1644 1841Rlily Bee MD /nt
== END 2017-12-17 14:50 | disposition home health service (06) | DRG 252 ==
LOC: M.ERS 10:43 → M.TBA-ER 12:22 → M.2W 12:22
PROVIDERS: Family Medicine; Internal Medicine Nephrology; Nurse Practitioner Family; Physician Assistant Surgical; Surgery Vascular Surgery; ADMIT Internal Medicine
PROC: 03WY0JZ Revision of Synthetic Substitute in Upper Artery, Open Approach (ICD-10-PCS; principal; 2017-12-10)
PROC: 02HV33Z Insertion of Infusion Device into Superior Vena Cava, Percutaneous Approach (ICD-10-PCS; principal; 2017-12-10)
PROC: 5A1D70Z Performance of Urinary Filtration, Intermittent, Less than 6 Hours Per Day (ICD-10-PCS; 2017-12-13)
PROC: 0JH63XZ Insertion of Tunneled Vascular Access Device into Chest Subcutaneous Tissue and Fascia, Percutaneous Approach (ICD-10-PCS; 2017-12-17)
PROC: B549ZZA Ultrasonography of Inferior Vena Cava, Guidance (ICD-10-PCS; 2017-12-17)
PROC: B5191ZA Fluoroscopy of Inferior Vena Cava using Low Osmolar Contrast, Guidance (ICD-10-PCS; 2017-12-17)
PROC: 02PYX3Z Removal of Infusion Device from Great Vessel, External Approach (ICD-10-PCS; 2017-12-17)
PROC: 06H033Z Insertion of Infusion Device into Inferior Vena Cava, Percutaneous Approach (ICD-10-PCS; 2017-12-17)
DX: T82.868A Thrombosis due to vascular prosthetic devices, implants and grafts, initial encounter (principal); N18.6 End stage renal disease; A41.89 Other specified sepsis; I13.2 Hypertensive heart and chronic kidney disease with heart failure and with stage 5 chronic kidney disease, or end stage renal disease; I50.32 Chronic diastolic (congestive) heart failure; Z68.41 Body mass index [BMI] 40.0-44.9, adult; E87.1 Hypo-osmolality and hyponatremia; N25.81 Secondary hyperparathyroidism of renal origin; E87.5 Hyperkalemia; T82.7XXA Infection and inflammatory reaction due to other cardiac and vascular devices, implants and grafts, initial encounter; D63.8 Anemia in other chronic diseases classified elsewhere; I08.1 Rheumatic disorders of both mitral and tricuspid valves; B95.62 Methicillin resistant Staphylococcus aureus infection as the cause of diseases classified elsewhere; Y84.1 Kidney dialysis as the cause of abnormal reaction of the patient, or of later complication, without mention of misadventure at the time of the procedure; E11.22 Type 2 diabetes mellitus with diabetic chronic kidney disease; I27.20 Pulmonary hypertension, unspecified; E66.01 Morbid (severe) obesity due to excess calories; I77.0 Arteriovenous fistula, acquired; E83.39 Other disorders of phosphorus metabolism; Z89.611 Acquired absence of right leg above knee; Z87.81 Personal history of (healed) traumatic fracture; Z79.82 Long term (current) use of aspirin; Z79.899 Other long term (current) drug therapy; Y92.89 Other specified places as the place of occurrence of the external cause; Z82.49 Family history of ischemic heart disease and other diseases of the circulatory system

== ENCOUNTER → 2017-12-24 | Outpatient (CLI) | payer BC, MEDICARE | LOC: M.WC 12-17 08:00 | DX: T81.89XA Other complications of procedures, not elsewhere classified, initial encounter (principal); E11.22 Type 2 diabetes mellitus with diabetic chronic kidney disease; I13.2 Hypertensive heart and chronic kidney disease with heart failure and with stage 5 chronic kidney disease, or end stage renal disease; I50.30 Unspecified diastolic (congestive) heart failure; N18.6 End stage renal disease; E11.319 Type 2 diabetes mellitus with unspecified diabetic retinopathy without macular edema; E66.01 Morbid (severe) obesity due to excess calories; H40.9 Unspecified glaucoma; Z86.73 Personal history of transient ischemic attack (TIA), and cerebral infarction without residual deficits; Z99.2 Dependence on renal dialysis; Z87.891 Personal history of nicotine dependence; Z79.82 Long term (current) use of aspirin; Z68.41 Body mass index [BMI] 40.0-44.9, adult; Y92.89 Other specified places as the place of occurrence of the external cause; Y83.8 Other surgical procedures as the cause of abnormal reaction of the patient, or of later complication, without mention of misadventure at the time of the procedure ==

== ENCOUNTER → 2017-12-31 | Outpatient (CLI) | payer BC, MEDICARE | LOC: M.WC 05:23 | DX: T81.89XD Other complications of procedures, not elsewhere classified, subsequent encounter (principal); E11.319 Type 2 diabetes mellitus with unspecified diabetic retinopathy without macular edema; E11.22 Type 2 diabetes mellitus with diabetic chronic kidney disease; I13.2 Hypertensive heart and chronic kidney disease with heart failure and with stage 5 chronic kidney disease, or end stage renal disease; N18.6 End stage renal disease; I50.20 Unspecified systolic (congestive) heart failure; E11.39 Type 2 diabetes mellitus with other diabetic ophthalmic complication; E66.01 Morbid (severe) obesity due to excess calories; H40.9 Unspecified glaucoma; Z87.891 Personal history of nicotine dependence; Z86.73 Personal history of transient ischemic attack (TIA), and cerebral infarction without residual deficits; Z68.41 Body mass index [BMI] 40.0-44.9, adult; Z99.2 Dependence on renal dialysis; Y83.8 Other surgical procedures as the cause of abnormal reaction of the patient, or of later complication, without mention of misadventure at the time of the procedure ==

== ENCOUNTER → 2018-01-08 | Outpatient (CLI) | payer BC, MEDICARE | LOC: M.WC 04:29 | DX: T81.89XD Other complications of procedures, not elsewhere classified, subsequent encounter (principal); E11.319 Type 2 diabetes mellitus with unspecified diabetic retinopathy without macular edema; E11.39 Type 2 diabetes mellitus with other diabetic ophthalmic complication; H40.9 Unspecified glaucoma; E11.22 Type 2 diabetes mellitus with diabetic chronic kidney disease; N18.6 End stage renal disease; I13.2 Hypertensive heart and chronic kidney disease with heart failure and with stage 5 chronic kidney disease, or end stage renal disease; I50.30 Unspecified diastolic (congestive) heart failure; E66.01 Morbid (severe) obesity due to excess calories; Z99.2 Dependence on renal dialysis; Z86.73 Personal history of transient ischemic attack (TIA), and cerebral infarction without residual deficits; Z87.891 Personal history of nicotine dependence; Z68.41 Body mass index [BMI] 40.0-44.9, adult; Y83.8 Other surgical procedures as the cause of abnormal reaction of the patient, or of later complication, without mention of misadventure at the time of the procedure ==

== ENCOUNTER 2018-01-12 22:14 | Emergency (ER) | payer BC, MEDICARE ==
[~2018-01-12] VITALS: Ht 162.6 cm; Wt 108.9 kg
[2018-01-13] MEDS ORDERED: CYCLOBENZAPRINE5 MG PO (00:40)
[2018-01-13] MEDS ORDERED: NORCO 5-325 TA1 EACH PO (00:40)
[2018-01-13 01:01] VITALS: BP 196/101
== END 2018-01-13 01:02 | disposition home or self-care (01) ==
LOC: M.ERS 22:14
DX: S39.011A Strain of muscle, fascia and tendon of abdomen, initial encounter (principal); E11.22 Type 2 diabetes mellitus with diabetic chronic kidney disease; I13.2 Hypertensive heart and chronic kidney disease with heart failure and with stage 5 chronic kidney disease, or end stage renal disease; I50.32 Chronic diastolic (congestive) heart failure; N18.6 End stage renal disease; E66.01 Morbid (severe) obesity due to excess calories; Z99.2 Dependence on renal dialysis; Z86.14 Personal history of Methicillin resistant Staphylococcus aureus infection; Z68.41 Body mass index [BMI] 40.0-44.9, adult; X50.1XXA Overexertion from prolonged static or awkward postures, initial encounter; Y93.89 Activity, other specified; Y92.89 Other specified places as the place of occurrence of the external cause; Y99.8 Other external cause status

== ENCOUNTER 2018-01-13 08:57 | Emergency (ER) | payer BC, MEDICARE ==
[~2018-01-13] VITALS: Ht 162.6 cm; Wt 108.9 kg
[2018-01-13 09:23] LABS: HEMATOCRIT 30.2 % (42.0-52.0); HEMOGLOBIN 10.1 gm/dL (14.0-18.0); MCH 31.3 pg (26.0-34.0); MCHC 33.5 g/dL (28.0-37.0); MCV 93.6 fL (80.0-100.0); MPV 8.1 fl. (7.2-11.1); NUCLEATED RBCS 0 /100WBC; PLATELET COUNT* 255 thou/uL (150-400); RBC 3.22 mil/uL (4.50-6.00); RDW-CV 17.1 % (10.5-14.5); WBC 13.3 thou/uL (4.0-11.0)
[2018-01-13 09:41] LABS: CALCIUM 7.9 mg/dL (8.5-10.1); CREATININE 7.6 mg/dL (0.6-1.3); POTASSIUM 4.7 mmol/L (3.5-5.1)
[2018-01-13 09:46] LABS: ALBUMIN 3.8 g/dL (3.4-5.0); TOTAL BILIRUBIN 0.4 mg/dL (<0.1-1.0)
[2018-01-13 10:30] LABS: ABSOLUTE LYMPHOCYTES 0.5 thou/uL (0.8-5.3); ABSOLUTE MONOCYTES 0.1 thou/uL (0.0-1.2); ABSOLUTE NEUTROPHILS 12.6 thou/uL (1.6-8.1)
[2018-01-13 10:31] LABS: ANISOCYTOSIS 1+; PLATELET ESTIMATE ADEQUATE
[2018-01-13 10:45] VITALS: BP 173/80
== END 2018-01-13 10:45 | disposition home or self-care (01) ==
LOC: M.ERS 08:57
PROVIDERS: Family Medicine
DX: M25.551 Pain in right hip (principal); I13.2 Hypertensive heart and chronic kidney disease with heart failure and with stage 5 chronic kidney disease, or end stage renal disease; E11.22 Type 2 diabetes mellitus with diabetic chronic kidney disease; N18.6 End stage renal disease; I50.32 Chronic diastolic (congestive) heart failure; E66.01 Morbid (severe) obesity due to excess calories; Z68.41 Body mass index [BMI] 40.0-44.9, adult; Z99.2 Dependence on renal dialysis

== ENCOUNTER → 2018-01-15 | Outpatient (CLI) | payer BC, MEDICARE | LOC: M.WC 03:57 | DX: T81.89XD Other complications of procedures, not elsewhere classified, subsequent encounter (principal); E11.319 Type 2 diabetes mellitus with unspecified diabetic retinopathy without macular edema; E11.39 Type 2 diabetes mellitus with other diabetic ophthalmic complication; H40.9 Unspecified glaucoma; E11.22 Type 2 diabetes mellitus with diabetic chronic kidney disease; N18.6 End stage renal disease; I13.2 Hypertensive heart and chronic kidney disease with heart failure and with stage 5 chronic kidney disease, or end stage renal disease; I50.30 Unspecified diastolic (congestive) heart failure; E66.01 Morbid (severe) obesity due to excess calories; Z87.891 Personal history of nicotine dependence; Z86.73 Personal history of transient ischemic attack (TIA), and cerebral infarction without residual deficits; Z99.2 Dependence on renal dialysis; Z68.41 Body mass index [BMI] 40.0-44.9, adult; Y83.8 Other surgical procedures as the cause of abnormal reaction of the patient, or of later complication, without mention of misadventure at the time of the procedure ==

== ENCOUNTER 2018-01-16 22:00 | Inpatient (IN) | payer BC, MEDICARE ==
[~2018-01-16] VITALS: Ht 162.6 cm; Wt 111.1 kg
[2018-01-16 22:03] VITALS: BP 142/98
[2018-01-16 22:32] LABS: ABSOLUTE BASOPHILS 0.1 thou/uL (0.0-0.2); ABSOLUTE EOSINOPHILS 0.5 thou/uL (0.0-0.7); ABSOLUTE LYMPHOCYTES 1.4 thou/uL (0.8-5.3); ABSOLUTE NEUTROPHILS 7.7 thou/uL (1.6-8.1); BASOPHILS 0.7 %; HEMATOCRIT 29.8 % (42.0-52.0); LYMPHOCYTES 13.1 %; MCH 31.8 pg (26.0-34.0); MCHC 33.6 g/dL (28.0-37.0); MCV 94.6 fL (80.0-100.0); MPV 8.5 fl. (7.2-11.1); NUCLEATED RBCS 0 /100WBC; PLATELET COUNT* 263 thou/uL (150-400); POLYS 72.2 %; RBC 3.15 mil/uL (4.50-6.00); RDW-CV 17.8 % (10.5-14.5); WBC 10.7 thou/uL (4.0-11.0)
[2018-01-16 22:43] LABS: ANION GAP 13 mmol/L (7-16); BUN 70 mg/dL (7-18); CALCIUM 8.3 mg/dL (8.5-10.1); CHLORIDE 98 mmol/L (98-107); CO2 26 mmol/L (21-32); CREATININE 8.9 mg/dL (0.6-1.3); GLUCOSE 149 mg/dL (70-99); POTASSIUM 4.9 mmol/L (3.5-5.1); SODIUM 137 mmol/L (136-145)
[2018-01-16 22:53] LABS: ALBUMIN 3.7 g/dL (3.4-5.0); ALKALINE PHOSPHATASE 110 U/L (46-116); NT-PRO BRAIN NAT PEPTIDE 19628 pg/mL (<300); SGOT 34 U/L (15-37); SGPT 24 U/L (30-65); TOTAL BILIRUBIN 0.3 mg/dL (<0.1-1.0); TOTAL PROTEIN 8.5 g/dL (6.4-8.2); TROPONIN-I LEVEL <0.06 ng/mL (<0.06)
[2018-01-17 01:26] VITALS: BP 163/71
[2018-01-17 02:00] VITALS: BP 172/94
[2018-01-17 04:00] VITALS: BP 146/72
[2018-01-17 08:00] VITALS: BP 168/110
[2018-01-17 09:47] VITALS: BP 168/110
--- NOTE | 2018-01-17 10:39 | EKG ---
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: : 1975 Requested By: Mary Rosas Order Number: [id number] Garcia MD: Austin Spencer Measurements Intervals [place] Rate: 165 P: 0 [place]: QRS: -5 QRSD: 104 T: 124 QT: 307 QTc: 509 Interpretive Statements Supraventricular tachycardia Abnormal R-wave progression, late transition Probable LVH with secondary repol abnrm Anterior ST elevation, probably due to LVH Prolonged QT interval Baseline wander in lead(s) V2 Compared to ECG 12/09/2017 11:50:30 ST (T wave) deviation now present Sinus rhythm no longer present First degree AV block no longer present Electronically Signed On 01-17-2018 10:39:12 CDT by Austin Spencer [email or web address] <ELECTRONICALLY SIGNED> By: Austin Spencer MD, [facility] 01/17/18 1039 05 05 Austin Spencer MD, [facility] /EPI
--- NOTE | 2018-01-17 10:40 | EKG ---
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: : 1975 Requested By: Mary Rosas Order Number: [id number] MD: Austin Spencer Measurements Intervals [place] Rate: 103 P: 46 [place]: 150 QRS: -4 QRSD: 107 T: 119 QT: 367 QTc: 481 Interpretive Statements Sinus tachycardia LVH with secondary repolarization abnormality Anterior ST elevation, probably due to LVH Borderline prolonged QT interval Compared to ECG 12/09/2017 11:50:30 Early repolarization now present ST (T wave) deviation now present SUPRAVENTRICULAR TACHYCARDIA no longer noted Electronically Signed On 01-17-2018 10:40:21 CDT by Austin Spencer [email or web address] <ELECTRONICALLY SIGNED> By: Austin Spencer MD, FACC 01/17/18 1040 2319 2319 Austin Spencer MD, FACC /EPI
[2018-01-17 11:32] VITALS: BP 187/73
--- NOTE | 2018-01-19 08:35 | CON ---
[address] [address] CONSULTATION Name: SAMANTA OGLESBY Room: [address] IN M.R.#: [id number] Admission: 01/17/18 Attend Phys: Marylu Gonzalez MD Discharge: 01/17/18 Date of : 77 Report #: [id number] THIS REPORT FOR: //name// CC: [facility] physician/PCP Marylu Gonzalez DATE OF SERVICE: 01/17/2018 CONSULTING PHYSICIAN: Dr. Rosas. REASON FOR NEPHROLOGY CONSULTATION: End-stage renal disease, on maintenance hemodialysis. CHIEF COMPLAINT: Palpitations. HISTORY OF PRESENT ILLNESS: This is a pleasant 42-year-old male who has past medical history of end-stage renal disease, who is on hemodialysis every Saturday, Saturday and Saturday at [facility] under the care of Dr. Castrejon, has diabetes and hypertension and has history of SVT, who came in yesterday because he was having palpitations and in the ER he was found to be in SVT and he was given adenosine, which helped and his heart rate is now in the 80s. Cardiology evaluation is still pending. The patient also had this episode a few months ago and he had a cardiac catheterization recently and that has been negative. We are waiting for Cardiology recommendations. He was started on dialysis in 2015 and his end-stage renal disease is because of diabetes and hypertension. He has a left arm AV graft, which has a good bruit. ALLERGIES: No known drug allergies. REVIEW OF SYSTEMS: This is as mentioned in history of present illness. He is not having any nausea, vomiting, palpitations right now or chest pain or shortness of breath right now. He makes about 1 cup of urine a day. PAST MEDICAL HISTORY: Included end-stage renal disease, diabetes, hypertension, dyslipidemia, history of right hip fracture. PAST SURGICAL HISTORY: Includes history of right eye bleeding and he cannot see out of it, had surgery in 08/2017 and he also has AV graft in his left arm. HOME MEDICATIONS: Include Flexeril, hydrocodone, docusate, aspirin, FiberCon, furosemide, sevelamer, Velphoro, clonidine, amiodarone, diltiazem, carvedilol, atorvastatin. FAMILY HISTORY: Reviewed and noncontributory to the current situation. SOCIAL HISTORY: He does not smoke. He used alcohol in the past[place] [address] CONSULTATION Name: SAMANTA OGLESBY Room: [address]#: [id number] Admission: 01/17/18 Attend Phys: Marylu Gonzalez MD Discharge: 01/17/18 Date of : 77 Report #: [id number] any recreational drug use currently. He works. PHYSICAL EXAMINATION: VITAL SIGNS: Blood pressure is 146/72, respiratory rate is 20, pulse rate is 84, temperature is 36.4, and the pulse ox is 98% on 2 liters nasal cannula. GENERAL: He is awake, alert, oriented, no acute distress. HEAD, EYES, EARS, NOSE AND THROAT: Mucous members are moist. NECK: There is no JVD. CHEST: Clear to auscultation bilaterally. No crackles or wheezing. CARDIOVASCULAR: S1, S2 normal. No murmurs heard. ABDOMEN: Obese, otherwise soft, nondistended, nontender. Bowel sounds are present. EXTREMITIES: He has left arm AV graft with good bruit. The lower extremities have no edema. NEUROLOGIC FUNCTION: Gross neurological functions are intact. PSYCHIATRIC: Mood and affect is normal. LABORATORY DATA: Hemoglobin is 10.0. Potassium 4.9, BUN was 17. Troponin was 1.02. Other labs are reviewed. IMAGING: Chest x-ray was reviewed. ASSESSMENT: 1. End-stage renal disease, on hemodialysis every Saturday, Saturday, Saturday, due for dialysis today. Goes to [facility]. 2. Hypertension, blood pressure is controlled. 3. Episode of supraventricular tachycardia, ____ with adenosine. Cardiology evaluation pending. 4. Diabetes type 2. 5. Anemia of chronic kidney disease. Hemoglobin 10.0. Erythropoietin as per outpatient treatment. PLAN: 1. Dialysis today as per his regular schedule. 2. Supraventricular tachycardia, being monitored on tele. Cardiology evaluation is pending. 3. Avoid morphine in the setting of end-stage renal disease as it can cause neurotoxicity and seizures. 4. Elevated troponin is likely because of SVT, but Cardiology evaluation is pending. Thank you for this consultation. We will continue to follow along with you. <ELECTRONICALLY SIGNED> By: Fawn Swan MD 01/19/18 0835 0916 2333Acharlie Swan MD /nt
== END 2018-01-17 17:45 | disposition home or self-care (01) | DRG 308 ==
LOC: M.ERS 22:00 → M.2W 01-17 00:14 → M.TBA-ER 01-17 00:14 → M.2W 01-17 00:37
PROVIDERS: Personal Emergency Response Attendant; ADMIT Internal Medicine
DX: I47.1 Supraventricular tachycardia (principal); N18.6 End stage renal disease; I50.32 Chronic diastolic (congestive) heart failure; Z68.41 Body mass index [BMI] 40.0-44.9, adult; I13.2 Hypertensive heart and chronic kidney disease with heart failure and with stage 5 chronic kidney disease, or end stage renal disease; E11.22 Type 2 diabetes mellitus with diabetic chronic kidney disease; E66.01 Morbid (severe) obesity due to excess calories; E78.5 Hyperlipidemia, unspecified; D63.8 Anemia in other chronic diseases classified elsewhere; Z99.2 Dependence on renal dialysis; Z62.813 Personal history of forced labor or sexual exploitation in childhood; Z82.49 Family history of ischemic heart disease and other diseases of the circulatory system; Z23 Encounter for immunization; Z79.899 Other long term (current) drug therapy

== ENCOUNTER 2018-01-28 10:54 | Emergency (ER) | payer BC, MEDICARE ==
[~2018-01-28] VITALS: Ht 162.6 cm; Wt 111.1 kg
[2018-01-28 11:35] LABS: HEMATOCRIT 29.5 % (42.0-52.0); HEMOGLOBIN 9.8 gm/dL (14.0-18.0); MCH 31.4 pg (26.0-34.0); MCHC 33.1 g/dL (28.0-37.0); MCV 94.9 fL (80.0-100.0); MPV 7.7 fl. (7.2-11.1); RBC 3.11 mil/uL (4.50-6.00); RDW-CV 18.2 % (10.5-14.5); WBC 9.4 thou/uL (4.0-11.0)
[2018-01-28 11:46] LABS: CALCIUM 7.7 mg/dL (8.5-10.1); CREATININE 8.9 mg/dL (0.6-1.3)
[2018-01-28 13:11] VITALS: BP 188/93
== END 2018-01-28 13:12 | disposition home or self-care (01) ==
LOC: M.ERS 10:54
PROVIDERS: Personal Emergency Response Attendant
DX: T82.49XA Other complication of vascular dialysis catheter, initial encounter (principal); I12.0 Hypertensive chronic kidney disease with stage 5 chronic kidney disease or end stage renal disease; E11.22 Type 2 diabetes mellitus with diabetic chronic kidney disease; N18.6 End stage renal disease; Z99.2 Dependence on renal dialysis; E66.01 Morbid (severe) obesity due to excess calories; I13.2 Hypertensive heart and chronic kidney disease with heart failure and with stage 5 chronic kidney disease, or end stage renal disease; I50.9 Heart failure, unspecified

== ENCOUNTER 2018-04-09 11:24 | Emergency (ER) | payer BC, MEDICARE ==
[~2018-04-09] VITALS: Ht 165.1 cm; Wt 113.4 kg
[2018-04-09 13:20] VITALS: BP 180/90
[2018-04-10] MEDS ORDERED: ACETAZOLAMIDE250 M1 PO (23:46)
[2018-04-10] MEDS ORDERED: DORZOLAMIDE 2%10 ML OPHTHALMIC (23:46)
[2018-04-10] MEDS ORDERED: PREDNISOLONE ACE5 ML OPHTHALMIC (23:48)
[2018-04-10] MEDS ORDERED: COMBIGAN EYE DR10 ML OPHTHALMIC (23:49)
[2018-04-10] MEDS ORDERED: FRESHKOTE15 ML OPHTHALMIC (23:49)
[2018-04-10] MEDS ORDERED: TOBRAMYCIN SULFA5 M1 OPHTHALMIC (23:51)
== END 2018-04-09 13:21 | disposition home or self-care (01) ==
LOC: M.ERS 11:24
DX: H57.11 Ocular pain, right eye (principal); R51 Headache; E11.22 Type 2 diabetes mellitus with diabetic chronic kidney disease; I13.2 Hypertensive heart and chronic kidney disease with heart failure and with stage 5 chronic kidney disease, or end stage renal disease; I50.32 Chronic diastolic (congestive) heart failure; N18.6 End stage renal disease; E66.01 Morbid (severe) obesity due to excess calories; Z99.2 Dependence on renal dialysis; Z86.14 Personal history of Methicillin resistant Staphylococcus aureus infection; Z68.41 Body mass index [BMI] 40.0-44.9, adult

== ENCOUNTER 2018-04-10 23:29 | Emergency (ER) | payer BC, MEDICARE ==
[~2018-04-10] VITALS: Ht 162.6 cm; Wt 115.7 kg
[2018-04-10] MEDS ORDERED: ACETAZOLAMIDE250 M1 PO (23:46)
[2018-04-10] MEDS ORDERED: DORZOLAMIDE 2%10 ML OPHTHALMIC (23:46)
[2018-04-10] MEDS ORDERED: PREDNISOLONE ACE5 ML OPHTHALMIC (23:48)
[2018-04-10] MEDS ORDERED: COMBIGAN EYE DR10 ML OPHTHALMIC (23:49)
[2018-04-10] MEDS ORDERED: FRESHKOTE15 ML OPHTHALMIC (23:49)
[2018-04-10] MEDS ORDERED: TOBRAMYCIN SULFA5 M1 OPHTHALMIC (23:51)
[2018-04-11 00:40] LABS: ABSOLUTE BASOPHILS 0.1 thou/uL (0.0-0.2); ABSOLUTE EOSINOPHILS 0.5 thou/uL (0.0-0.7); ABSOLUTE MONOCYTES 0.9 thou/uL (0.0-1.2); ABSOLUTE NEUTROPHILS 6.2 thou/uL (1.6-8.1); BASOPHILS 0.8 %; EOSINOPHILS 5.2 %; HEMOGLOBIN 11.5 gm/dL (14.0-18.0); MCH 31.5 pg (26.0-34.0); MCV 95.5 fL (80.0-100.0); MONOCYTES 10.4 %; NUCLEATED RBCS 0 /100WBC; PLATELET COUNT* 208 thou/uL (150-400); POLYS 71.6 %; RBC 3.67 mil/uL (4.50-6.00); WBC 8.7 thou/uL (4.0-11.0)
[2018-04-11 00:52] LABS: ANION GAP 13 mmol/L (7-16); BUN 109 mg/dL (7-18); CHLORIDE 99 mmol/L (98-107); CO2 27 mmol/L (21-32); CREATININE 13.3 mg/dL (0.6-1.3); GLUCOSE 128 mg/dL (70-99); POTASSIUM 5.4 mmol/L (3.5-5.1); SODIUM 139 mmol/L (136-145)
[2018-04-11 00:59] LABS: ALBUMIN 3.8 g/dL (3.4-5.0); ALKALINE PHOSPHATASE 133 U/L (46-116); MAGNESIUM 2.8 mg/dL (1.8-2.4); SGOT 20 U/L (15-37); SGPT 19 U/L (30-65); TOTAL BILIRUBIN 0.2 mg/dL (<0.1-1.0); TOTAL PROTEIN 8.3 g/dL (6.4-8.2); TROPONIN-I LEVEL <0.06 ng/mL (<0.06)
[2018-04-11 01:22] VITALS: BP 150/42
--- NOTE | 2018-04-11 14:07 | EKG ---
[place] [address] ELECTROCARDIOGRAM REPORT Name: SAMANTA OGLESBY Room: [facility]#: [id number] Admission: 04/10/18 Attend Phys: Discharge: 04/11/18 Date of : 77 Report #: [id number] THIS REPORT FOR: //name// 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 Block Bench Hand: ADITI : 1975 Requested By: MADELYN Order Number: [id number] MD: Oj Mancnii Measurements Intervals [place] Rate: 74 P: 3 NM: 181 QRS: -11 QRSD: 123 T: 48 QT: 441 QTc: 490 Interpretive Statements Sinus rhythm Probable left ventricular hypertrophy ST elev, probable normal early repol pattern Borderline prolonged QT interval Baseline wander in lead(s) V1 Compared to ECG 01/16/2018 23:19:30 Sinus tachycardia no longer present Early repolarization no longer present ST (T wave) deviation still present Electronically Signed On 04-11-2018 14:07:17 TIE UP WORKER by Oj Mancini [email or web address] <ELECTRONICALLY SIGNED> By: Oj Mancini MD, FACC 04/11/18 1407 2336 2336 Oj Mancini MD, FACC /EPI
== END 2018-04-11 01:25 | disposition home or self-care (01) ==
LOC: M.ERS 23:29
PROVIDERS: Personal Emergency Response Attendant
DX: R00.2 Palpitations (principal); I13.2 Hypertensive heart and chronic kidney disease with heart failure and with stage 5 chronic kidney disease, or end stage renal disease; E11.22 Type 2 diabetes mellitus with diabetic chronic kidney disease; N18.6 End stage renal disease; I50.32 Chronic diastolic (congestive) heart failure; E66.01 Morbid (severe) obesity due to excess calories; Z68.41 Body mass index [BMI] 40.0-44.9, adult; Z86.14 Personal history of Methicillin resistant Staphylococcus aureus infection; Z99.2 Dependence on renal dialysis

== ENCOUNTER 2018-05-02 14:56 | Emergency (ER) | payer BC, MEDICARE ==
[~2018-05-02] VITALS: Ht 162.6 cm; Wt 113.4 kg
[~2018-05-02 14:56] MED LIST changes: +ACETAZOLAMIDE250 M1 PO; +COMBIGAN EYE DR10 ML OPHTHALMIC; +DORZOLAMIDE 2%10 ML OPHTHALMIC; +FRESHKOTE15 ML OPHTHALMIC; +PREDNISOLONE ACE5 ML OPHTHALMIC; +TOBRAMYCIN SULFA5 M1 OPHTHALMIC
[2018-05-02 15:27] LABS: ABSOLUTE BASOPHILS 0.1 thou/uL (0.0-0.2); ABSOLUTE EOSINOPHILS 0.3 thou/uL (0.0-0.7); ABSOLUTE LYMPHOCYTES 1.3 thou/uL (0.8-5.3); ABSOLUTE MONOCYTES 0.7 thou/uL (0.0-1.2); ABSOLUTE NEUTROPHILS 6.7 thou/uL (1.6-8.1); BASOPHILS 0.9 %; EOSINOPHILS 3.4 %; HEMATOCRIT 36.5 % (42.0-52.0); HEMOGLOBIN 12.2 gm/dL (14.0-18.0); LYMPHOCYTES 13.8 %; MCH 31.2 pg (26.0-34.0); MCHC 33.4 g/dL (28.0-37.0); MCV 93.5 fL (80.0-100.0); MONOCYTES 8.2 %; MPV 9.2 fl. (7.2-11.1); NUCLEATED RBCS 0 /100WBC; PLATELET COUNT* 222 thou/uL (150-400); POLYS 73.7 %; RBC 3.91 mil/uL (4.50-6.00); RDW-CV 15.3 % (10.5-14.5); WBC 9.1 thou/uL (4.0-11.0)
[2018-05-02 15:30] LABS: ANION GAP 8 mmol/L (7-16); BUN 55 mg/dL (7-18); CALCIUM 9.2 mg/dL (8.5-10.1); CHLORIDE 98 mmol/L (98-107); CO2 31 mmol/L (21-32); CREATININE 9.3 mg/dL (0.6-1.3); GLUCOSE 110 mg/dL (70-99); POTASSIUM 4.8 mmol/L (3.5-5.1); SODIUM 137 mmol/L (136-145)
[2018-05-02 15:38] LABS: ALBUMIN 4.3 g/dL (3.4-5.0); ALKALINE PHOSPHATASE 159 U/L (46-116); MAGNESIUM 2.7 mg/dL (1.8-2.4); SGOT 21 U/L (15-37); SGPT 31 U/L (30-65); TOTAL BILIRUBIN 0.5 mg/dL (<0.1-1.0); TOTAL PROTEIN 9.3 g/dL (6.4-8.2); TROPONIN-I LEVEL <0.06 ng/mL (<0.06)
[2018-05-02 17:31] LABS: URINE BILIRUBIN NEGATIVE (Negative); URINE BLOOD TRACE (Negative); URINE CLARITY CLEAR; URINE COLOR YELLOW; URINE GLUCOSE-RANDOM TRACE (Negative); URINE KETONES NEGATIVE (Negative); URINE LEUKOCYTES-REFLEX NEGATIVE (Negative); URINE NITRITE-REFLEX NEGATIVE (Negative); URINE PROTEIN 3+ (Negative); URINE SPECIFIC GRAVITY 1.015 (1.005-1.030); URINE UROBILINOGEN 0.2 E.U./dl (0.2-1.0)
[2018-05-02 17:34] LABS: BACTERIA-REFLEX None Seen /HPF (None Seen); CASTS None Seen /LPF (None Seen); CRYSTALS None Seen /LPF (None Seen); MUCUS 0-3 Light strn/LPF (None Seen); SQUAMOUS 4-10 Moderate /LPF (0-3); URINE RBC None Seen /HPF (0-2); URINE WBC-REFLEX None Seen /HPF (0-5)
[2018-05-02 17:47] VITALS: BP 176/74
--- NOTE | 2018-05-04 12:25 | EKG ---
[place] [address] ELECTROCARDIOGRAM REPORT Name: SAMANTA OGLESBY Room: [facility]#: [id number] Admission: 05/02/18 Attend Phys: Discharge: 05/02/18 Date of : 77 Report #: [id number] THIS REPORT FOR: //name// [facility] ED Test Date: 2018-05-02 Test Time: 15:01:18 Pat Name: SAMANTA OGLESBY Department: Room: Gender: M Museum Archivist: Melania CADET : 1975 Requested By: Josue Reid Order Number: [id number] MD: Oj Mancini Measurements Intervals [place] Rate: 78 P: -6 MD: 161 QRS: -12 QRSD: 114 T: 122 QT: 409 QTc: 466 Interpretive Statements Sinus rhythm Abnormal R-wave progression, late transition LVH with IVCD and secondary repol abnrm Anterior ST elevation, probably due to LVH Compared to ECG 04/10/2018 23:36:51 Intraventricular conduction delay now present Early repolarization now present ST (T wave) deviation still present Electronically Signed On 05-04-2018 12:25:30 DEVELOPER PROVER UPHOLSTERING by Oj Mancini [email or web address] <ELECTRONICALLY SIGNED> By: Oj Mancini MD, FACC 05/04/18 1225 1501 1501 Oj Mancini MD, FACC /EPI
== END 2018-05-02 17:48 | disposition home or self-care (01) ==
LOC: M.ERS 14:56
PROVIDERS: Emergency Medicine
DX: R00.2 Palpitations (principal); I13.2 Hypertensive heart and chronic kidney disease with heart failure and with stage 5 chronic kidney disease, or end stage renal disease; E11.22 Type 2 diabetes mellitus with diabetic chronic kidney disease; N18.6 End stage renal disease; I50.32 Chronic diastolic (congestive) heart failure; E66.01 Morbid (severe) obesity due to excess calories; Z68.42 Body mass index [BMI] 45.0-49.9, adult; Z99.2 Dependence on renal dialysis; Z86.14 Personal history of Methicillin resistant Staphylococcus aureus infection

== ENCOUNTER 2018-05-08 08:43 | Emergency (ER) | payer BC, MEDICARE ==
[~2018-05-08] VITALS: Ht 162.6 cm; Wt 113.4 kg
[2018-05-08 09:11] LABS: ABSOLUTE BASOPHILS 0.1 thou/uL (0.0-0.2); ABSOLUTE EOSINOPHILS 0.4 thou/uL (0.0-0.7); ABSOLUTE LYMPHOCYTES 1.4 thou/uL (0.8-5.3); ABSOLUTE MONOCYTES 0.7 thou/uL (0.0-1.2); ABSOLUTE NEUTROPHILS 5.6 thou/uL (1.6-8.1); BASOPHILS 0.8 %; EOSINOPHILS 4.8 %; HEMATOCRIT 32.1 % (42.0-52.0); HEMOGLOBIN 10.8 gm/dL (14.0-18.0); LYMPHOCYTES 17.4 %; MCH 31.7 pg (26.0-34.0); MCHC 33.6 g/dL (28.0-37.0); MCV 94.3 fL (80.0-100.0); MONOCYTES 8.7 %; MPV 8.7 fl. (7.2-11.1); NUCLEATED RBCS 0 /100WBC; PLATELET COUNT* 210 thou/uL (150-400); POLYS 68.3 %; RDW-CV 15.4 % (10.5-14.5); WBC 8.2 thou/uL (4.0-11.0)
[2018-05-08 09:24] LABS: CALCIUM 8.7 mg/dL (8.5-10.1); CREATININE 14.4 mg/dL (0.6-1.3); POTASSIUM 5.7 mmol/L (3.5-5.1)
[2018-05-08 09:29] LABS: ALBUMIN 3.9 g/dL (3.4-5.0); TOTAL BILIRUBIN 0.3 mg/dL (<0.1-1.0); TOTAL PROTEIN 8.2 g/dL (6.4-8.2)
[2018-05-08 09:49] VITALS: BP 150/76
--- NOTE | 2018-05-08 13:32 | EKG ---
[place] [address] ELECTROCARDIOGRAM REPORT Name: MENDELSAMANTA R [facility]#: [id number] Admission: 05/08/18 Attend Phys: Discharge: 05/08/18 Date of : 77 Report #: [id number] THIS REPORT FOR: //name// [facility] ED Test Date: 2018-05-08 Test Time: 09:03:49 Pat Name: SAMANTA OGLESBY Department: Room: Gender: M Flange Turner: : 1975 Requested By: Simone Schneider Order Number: [id number] MD: Marky Larry Measurements Intervals [place] Rate: 68 P: 8 ID: 174 QRS: -8 QRSD: 116 T: 113 QT: 451 QTc: 480 Interpretive Statements Sinus rhythm LVH with IVCD and secondary repol abnrm Anterior ST elevation, probably due to LVH Borderline prolonged QT interval Compared to ECG 05/02/2018 15:01:18 No significant changes Electronically Signed On 05-08-2018 13:31:36 UTILIZATION MANAGEMENT RN by Marky Larry [email or web address] <ELECTRONICALLY SIGNED> By: Marky Larry MD, [facility] 05/08/18 1331 0903 0903 Marky Larry MD, [facility] /EPI
== END 2018-05-08 09:50 | disposition home or self-care (01) ==
LOC: M.ERS 08:43
PROVIDERS: Family Medicine
DX: I13.2 Hypertensive heart and chronic kidney disease with heart failure and with stage 5 chronic kidney disease, or end stage renal disease (principal); N18.6 End stage renal disease; Z99.2 Dependence on renal dialysis; E11.22 Type 2 diabetes mellitus with diabetic chronic kidney disease; I50.30 Unspecified diastolic (congestive) heart failure; E66.01 Morbid (severe) obesity due to excess calories; Z68.41 Body mass index [BMI] 40.0-44.9, adult

== ENCOUNTER 2018-07-26 12:13 | Emergency (ER) | payer BC, MEDICARE ==
[~2018-07-26] VITALS: Ht 162.6 cm; Wt 115.7 kg
[2018-07-26] MEDS ORDERED: ZOFRAN ODT4 MG SUBLING (12:47)
[2018-07-26] MEDS ORDERED: NORCO 5-325 TA1 EACH PO (12:47)
[2018-07-26 13:22] VITALS: BP 197/71
== END 2018-07-26 13:22 | disposition home or self-care (01) ==
LOC: M.ERS 12:13
DX: R51 Headache (principal); R11.2 Nausea with vomiting, unspecified; I13.2 Hypertensive heart and chronic kidney disease with heart failure and with stage 5 chronic kidney disease, or end stage renal disease; E11.22 Type 2 diabetes mellitus with diabetic chronic kidney disease; N18.6 End stage renal disease; I50.32 Chronic diastolic (congestive) heart failure; E66.01 Morbid (severe) obesity due to excess calories; Z68.41 Body mass index [BMI] 40.0-44.9, adult; Z99.2 Dependence on renal dialysis; Z86.14 Personal history of Methicillin resistant Staphylococcus aureus infection

== ENCOUNTER 2018-09-10 06:19 | Inpatient (IN) | payer MEDICARE, BC ==
[~2018-09-10] VITALS: Ht 162.6 cm; Wt 119.7 kg
[~2018-09-10 06:19] MED LIST changes: -CATAPRES-TTS 20.2 MG TOP; +CATAPRES-TTS 31 EACH TRANSDERM; +ZOFRAN ODT4 MG SUBLING
[2018-09-10 06:27] VITALS: BP 141/78
[2018-09-10] MEDS ORDERED: RENAL CAPS SOFTG1 MG PO (06:41)
[2018-09-10] MEDS ORDERED: TUMS PO (06:42)
[2018-09-10] MEDS ORDERED: VITAMIN D3400 UNIT PO (06:44)
[2018-09-10 06:57] LABS: ABSOLUTE BASOPHILS 0.1 thou/uL (0.0-0.2); ABSOLUTE EOSINOPHILS 0.3 thou/uL (0.0-0.7); ABSOLUTE LYMPHOCYTES 1.3 thou/uL (0.8-5.3); ABSOLUTE MONOCYTES 0.9 thou/uL (0.0-1.2); ABSOLUTE NEUTROPHILS 8.1 thou/uL (1.6-8.1); BASOPHILS 0.9 %; EOSINOPHILS 2.6 %; HEMATOCRIT 37.5 % (42.0-52.0); HEMOGLOBIN 12.5 gm/dL (14.0-18.0); LYMPHOCYTES 12.1 %; MCH 31.5 pg (26.0-34.0); MCHC 33.2 g/dL (28.0-37.0); MCV 94.9 fL (80.0-100.0); MPV 9.1 fl. (7.2-11.1); NUCLEATED RBCS 0 /100WBC; PLATELET COUNT* 218 thou/uL (150-400); POLYS 76.4 %; RBC 3.95 mil/uL (4.50-6.00); RDW-CV 16.5 % (10.5-14.5); WBC 10.6 thou/uL (4.0-11.0)
[2018-09-10 07:07] LABS: CALCIUM 8.8 mg/dL (8.5-10.1); CREATININE 11.5 mg/dL (0.6-1.3); POTASSIUM 5.4 mmol/L (3.5-5.1)
[2018-09-10 07:17] LABS: ALBUMIN 3.6 g/dL (3.4-5.0); MAGNESIUM 2.2 mg/dL (1.8-2.4); TOTAL BILIRUBIN 0.3 mg/dL (<0.1-1.0); TOTAL PROTEIN 8.3 g/dL (6.4-8.2); TROPONIN-I LEVEL 0.14 ng/mL (<0.06)
--- NOTE | 2018-09-10 11:29 | EKG ---
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1975 Requested By: Mary Rosas Order Number: [id number] Garcia MD: Marky Larry Measurements Intervals [place] Rate: 146 P: [place]: QRS: -12 QRSD: 104 T: 116 QT: 336 QTc: 524 Interpretive Statements Incomplete analysis due to missing data in precordial lead(s) Junctional tachycardia Probable LVH with secondary repol abnrm Prolonged QT interval Baseline wander in lead(s) V1 Missing lead(s): V2 Compared to ECG 05/08/2018 09:03:49 Junctional tachycardia now present Electronically Signed On 09-10-2018 11:29:02 CDT by Marky Larry [email or web address] <ELECTRONICALLY SIGNED> By: Marky Larry MD, [facility] 09/10/18 1129 0631 Marky Larry MD, [facility] /EPI
--- NOTE | 2018-09-10 11:29 | EKG ---
[place] [address] ELECTROCARDIOGRAM REPORT Name: SAMANTA OGLESBY Room: [place] [address] ADM IN .R.#: [id number] Admission: 09/10/18 Attend Phys: Deni Amato, Discharge: Date of : 77 Report #: [id number] THIS REPORT FOR: //name// [facility] ED Test Date: 2018-09-10 Test Time: 06:37:58 Pat Name: SAMANTA OGLESBY Department: Room: [facility] Gender: Leguillon Debeader: : 1975 Requested By: Mary Rosas Order Number: [id number] MD: Marky Larry Measurements Intervals [place] Rate: 147 P: [place]: QRS: -11 QRSD: 105 T: 117 QT: 334 QTc: 523 Interpretive Statements Junctional tachycardia Probable LVH with secondary repol abnrm Anterior ST elevation, probably due to LVH Prolonged QT interval Baseline wander in lead(s) III,aVL,V2 Compared to ECG 05/08/2018 09:03:49 ST (T wave) deviation still present Electronically Signed On 09-10-2018 11:29:36 CDT by Marky Larry [email or web address] <ELECTRONICALLY SIGNED> By: Marky Larry MD, FACC 09/10/18 1129 0637 0637 Marky Larry MD, [facility] /EPI
--- NOTE | 2018-09-10 11:30 | EKG ---
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: : 1975 Requested By: Mary Rosas Order Number: [id number] Garcia MD: Marky Larry Measurements Intervals [place] Rate: 81 P: 31 [place]: 157 QRS: -13 QRSD: 107 T: 101 QT: 404 QTc: 469 Interpretive Statements Sinus rhythm Abnormal R-wave progression, late transition LVH with secondary repolarization abnormality Anterior ST elevation, probably due to LVH Electronically Signed On 09-10-2018 11:29:59 CDT by Marky Larry [email or web address] <ELECTRONICALLY SIGNED> By: Marky Larry MD, [facility] 09/10/18 1129 0659 0659 Marky Larry MD, [facility] /EPI
[2018-09-10 15:48] VITALS: BP 173/94
[2018-09-10 16:00] VITALS: BP 165/81; BP 166/77
[2018-09-10 19:50] VITALS: BP 164/83
[2018-09-11] VITALS: BP 127/71
[2018-09-11 04:00] VITALS: BP 173/87
[2018-09-11 05:35] LABS: HEMATOCRIT 37.5 % (42.0-52.0); HEMOGLOBIN 12.4 gm/dL (14.0-18.0); MCH 31.5 pg (26.0-34.0); MCV 95.4 fL (80.0-100.0); RBC 3.93 mil/uL (4.50-6.00); RDW-CV 16.3 % (10.5-14.5); WBC 8.4 thou/uL (4.0-11.0)
[2018-09-11 06:23] LABS: ALBUMIN 3.6 g/dL (3.4-5.0); CALCIUM 8.9 mg/dL (8.5-10.1); MAGNESIUM 2.1 mg/dL (1.8-2.4); POTASSIUM 5.3 mmol/L (3.5-5.1); TOTAL BILIRUBIN 0.3 mg/dL (<0.1-1.0); TOTAL PROTEIN 7.7 g/dL (6.4-8.2)
[2018-09-11 06:24] LABS: CREATININE 8.6 mg/dL (0.6-1.3)
[2018-09-11 08:30] VITALS: BP 155/77
--- NOTE | 2018-09-11 10:15 | CON ---
[address] [address] CONSULTATION Name: SAAMNTA OGLESBY Room: [address] IN M.R.#: [id number] Admission: 09/10/18 Attend Phys: Deni Amato, Discharge: Date of : 77 Report #: [id number] THIS REPORT FOR: //name// CC: Austin Amato CONSULTING PHYSICIAN: Deni Amato M.D. REASON FOR CONSULTATION: End-stage kidney disease. HISTORY OF PRESENT ILLNESS: A 42-year-old gentleman who is on chronic hemodialysis Saturday, Saturday and Saturday, admitted with SVT and mildly elevated troponin, received adenosine in the Emergency Department and converted. He currently does not have any complaints. His breathing is much better and he overall feels comfortable and has no complaints or concerns at this time. REVIEW OF SYSTEMS: Constitutional, psych, heme, eyes, ENT, respiratory, cardiac, GI, , endocrine, all negative except as documented above. PAST MEDICAL HISTORY: End-stage kidney disease, hypertension, diabetes type 2, diastolic heart failure, morbid obesity and history of eye surgeries. SOCIAL HISTORY: No current tobacco use. FAMILY HISTORY: Not pertinent in this 42-year-old gentleman. CURRENT MEDICATIONS: Reviewed. PHYSICAL EXAMINATION: VITAL SIGNS: Blood pressure 133/94, pulse 77, respirations 15 and temperature 36.7. GENERAL: No acute distress. HEENT: Eyes are open. Ears, externally normal. NECK: Supple. CARDIOVASCULAR: Regular rate. LUNGS: Diminished breath sounds. ABDOMEN: Soft, obese and nontender. MUSCULOSKELETAL: Nontender. PSYCHIATRIC: Awake and alert. LABORATORY DATA: White cell count 10.6, hemoglobin 12.5 and platelets 218. Sodium 140, potassium 5.4, chloride 101, bicarbonate 26, BUN 75, creatinine 11.5 and glucose 164. Calcium 8.8, magnesium 2.2 and albumin 3.6. ASSESSMENT: 1. End-stage kidney disease, hemodialysis on Saturday, Saturday and Saturday at [facility] [place] [address] CONSULTATION Name: SAMANTA OGLESBY Room: [address] IN [facility].#: [id number] Admission: 09/10/18 Attend Phys: Deni Amato, Discharge: Date of : 77 Report #: [id number] 2. Mild hyperkalemia on admission with potassium of 5.4. 3. Hypertension. 4. Supraventricular tachycardia converted with adenosine in the Emergency Department. 6. Pulmonary edema noted on chest x-ray while he was in supraventricular tachycardia. He is on Lasix as an outpatient as well. 7. Diabetes. 8. Secondary hyperparathyroidism, on Velphoro and Renvela. 9. Vitamin D deficiency, on outpatient vitamin D. PLAN: We will plan dialysis today, ultrafilter as tolerated on a low potassium dialysate. We will follow for dialysis needs. Suggest a renal non-protein restricted diet while here. We will follow closely. Thank you for requesting my opinion in the care and management of this patient. We will follow for dialysis needs. Please call with any questions in the interim. <ELECTRONICALLY SIGNED> By: Tyesha Castrejon MD 09/11/18 1015 1111 0357Abinikita Castrejon MD /nt
[2018-09-11 12:01] VITALS: BP 145/73
[2018-09-11 13:24] VITALS: BP 145/73
--- NOTE | 2018-09-11 16:07 | CON ---
[address] [address] CONSULTATION Name: SAMANTA OGLESBY Room: [address] IN M.R.#: [id number] Admission: 09/10/18 Attend Phys: Deni Amato, Discharge: 09/11/18 Date of : 77 Report #: [id number] THIS REPORT FOR: //name// CC: Austin Amato DATE OF SERVICE: 09/10/2018 HISTORY OF PRESENT ILLNESS: The patient is a 42-year-old male who I was asked to see in the hospital today after he was noted to be tachycardic. The patient has a long history of atrial arrhythmias. Previous heart catheterization showed no significant coronary artery disease. He presented last October with SVT terminated with adenosine and he was reloaded with amiodarone. He developed end-stage renal disease several years ago and has been on hemodialysis. He is referred to a transplant center, but was told he would need to lose weight, first. He is on oxygen at night time. He is not very active at this time. Recently, he denies significant chest pain, shortness of breath, palpitations or syncope. He has been going to dialysis 3 days a week. Previous echocardiogram showed normal left ventricular function. The patient states he was doing well until this morning he went to dialysis. He was noted to be in tachycardia. He was sent to the Emergency Room and noted to be in SVT. The patient was given adenosine 6 mg followed by 12 mg intravenously and converted to sinus rhythm. He was admitted for further evaluation and treatment. PAST MEDICAL HISTORY: Otherwise significant for eye surgery, hip surgery, fistula placement, he has a history of hypertension, diabetes and renal failure. MEDICATIONS: Include amiodarone, aspirin, carvedilol, clonidine, diltiazem and Lasix. ALLERGIES: HE HAS ALLERGY TO PENICILLIN. FAMILY HISTORY: His father had a stroke. SOCIAL HISTORY: He is . He and his live in [place]. 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 PHYSICAL EXAMINATION: GENERAL: He is overweight being 5 feet 4 inches and weighing 268 pounds. HEENT: Mucous membranes are moist. He was anicteric. Conjunctivae pink. NECK: Neck veins do not appear distended. No carotid bruits. Neck is supple. CHEST: [place] [address] CONSULTATION Name: SAMANTA OGLESBY Room: [address]#: [id number] Admission: 09/10/18 Attend Phys: Deni Amato, Discharge: 09/11/18 Date of : 77 Report #: [id number] CARDIAC: Regular rate and rhythm. ABDOMEN: Obese. EXTREMITIES: Had trace edema. SKIN: Cool and dry. NEUROLOGIC: Nonfocal. LABORATORY DATA: ECG on admission showed a supraventricular tachycardia of 148 beats per minute. Currently, he is in sinus rhythm. His echocardiogram last November showed an ejection fraction of 55%, left atrial enlargement and mild mitral regurgitation. Workup in the Emergency Room last night, he had a portable chest x-ray that showed normal heart size and mild pulmonary edema. His lab work, sodium 140, creatinine 11.5 and glucose 164. Liver function studies were normal. His troponin is 1.86. His previous LDL 68. TSH 1.8. White blood cell count 10.6 and hemoglobin 12.5. IMPRESSION AND RECOMMENDATIONS: 1. Paroxysmal supraventricular tachycardia. I would increase the amiodarone to 200 mg twice a day. If he has recurrent episodes, would consider ablation. 2. Hypertension. The patient has been on calcium zehra, clonidine and beta zehra. 3. End-stage renal disease. The patient is on hemodialysis. 4. Obesity. 5. Elevated troponin, suspect type 2 myocardial infarction. I would not recommend stress testing nor cardiac catheterization. Suspect exacerbated by tachycardia. <ELECTRONICALLY SIGNED> By: Marky Larry MD, [facility] 09/11/18 1607 1610 [id number] Larry MD, FAC /nt
== END 2018-09-11 15:05 | disposition home or self-care (01) | DRG 280 ==
LOC: M.ERS 06:19 → M.TBA-ER 07:49 → M.2W 07:49
PROVIDERS: Personal Emergency Response Attendant; ADMIT Family Medicine
PROC: 5A1D70Z Performance of Urinary Filtration, Intermittent, Less than 6 Hours Per Day (ICD-10-PCS; principal; 2018-09-10)
DX: I21.A1 Myocardial infarction type 2 (principal); N18.6 End stage renal disease; I50.33 Acute on chronic diastolic (congestive) heart failure; I47.1 Supraventricular tachycardia; N25.81 Secondary hyperparathyroidism of renal origin; I13.2 Hypertensive heart and chronic kidney disease with heart failure and with stage 5 chronic kidney disease, or end stage renal disease; Z68.42 Body mass index [BMI] 45.0-49.9, adult; E11.22 Type 2 diabetes mellitus with diabetic chronic kidney disease; E66.01 Morbid (severe) obesity due to excess calories; E87.5 Hyperkalemia; E55.9 Vitamin D deficiency, unspecified; Z99.2 Dependence on renal dialysis; Z88.0 Allergy status to penicillin; Z82.3 Family history of stroke; Z79.82 Long term (current) use of aspirin; Z79.899 Other long term (current) drug therapy

== ENCOUNTER → 2018-11-07 | Outpatient (CLI) | payer MEDICARE, BC ==
[~2018-11-07] MED LIST changes: +TUMS PO; +VITAMIN D3400 UNIT PO
--- NOTE | ~2018-11-07 | PF ---
[address] [address] PULMONARY FUNCTION REPORT Name: SAMANTA OGLESBY Room: [facility]#: [id number] Admission: 11/07/18 Attend Phys: Marky Larry MD, F Discharge: Date of : 77 Report #: [id number] THIS REPORT FOR: //name// CC: Marky Larry MD [facility] Austin Genao DATE OF SERVICE: 11/10/2018 ATTENDING PHYSICIAN: Austin Genao DO PRIMARY CARE PHYSICIAN: Austin Genao DO The patient is a 42-year-old male performed full PFTs. He had much coughing throughout the PFTs. The patient had a difficult time inhaling without coughing. He had difficulty meeting ATS standards. Spirometry shows an FEV1 at 2.2 and FVC of 2.6, ratio is 85%, mid flow rates were normal. No improvement after bronchodilator. Lung volumes performed via plethysmography showed [id number] restrictive defect with decreased total lung capacity, decreased vital capacity and decreased residual volume. Diffusion when corrected for alveolar volume was normal at 79% of predicted. Total lung capacity was 69% of predicted. Vital capacity was 61% of predicted. IMPRESSION: Abnormalities suggest mild restrictive lung disease, probably related to the patient's body habitus. The patient did have increasing cough with inhalation, etiology is not known. He did not seem to have upper airway obstruction at least on the flow volume loop. No significant small airways disease as noted. By: [id number] alis Weinberg
== END ==
LOC: M.PUL 13:46
DX: I47.1 Supraventricular tachycardia (principal)

== ENCOUNTER → 2018-12-16 | Outpatient (CLI) | payer MEDICARE, BC ==
--- NOTE | 2018-12-16 16:00 | 2DMMODE ---
[place] [address] 2 D/M-MODE ECHOCARDIOGRAM Name: SAMANTA OGLESBY Room: [facility]#: [id number] Admission: 12/16/18 Attend Phys: Bessie Lema, Discharge: Date of : 77 Date of Service: 12/16/18 1600 Report #: [id number] THIS REPORT FOR: //name// APPROVED REPORT Study performed: 12/16/2018 10:14:00 EXAM: Comprehensive 2D, Doppler, and color-flow Echocardiogram Patient Location: Out-Patient BSA: 2.22 HR: 78 bpm BP: 180/88 mmHg Other Information Study Quality: Fair Indications Dyspnea 2D Dimensions IVSd: 14.89 (7-11mm) LVOT Diam: 21.67 (18-24mm) LVDd: 60.34 mm PWd: 13.64 (7-11mm) Ascending Ao: 31.44 (22-36mm) LVDs: 40.73 (25-40mm) Aortic Root: 31.06 mm Volumes Left Atrial Volume (Systole) LA ESV Index: 28.90 mL/m2 Aortic Valve AoV Peak Nam.: 1.43 m/s AO Peak Gr.: 8.18 mmHg LVOT Max P.69 mmHg AO Mean Gr.: 4.26 mmHg LVOT Mean P.68 mmHg LVOT Max V: 0.96 m/s AO V2 VTI: 29.68 cm LVOT Mean V: 0.59 m/s NAMAN (VTI): 2.66 cm2 LVOT V1 VTI: 21.42 cm Mitral Valve E/A Ratio: 0.78 MV Decel. Time: 227.91 ms MV E Max Nam.: 0.69 m/s MV PHT: 66.09 ms MVA (PHT): 3.33 [place]2 [place] [address] 2 D/M-MODE ECHOCARDIOGRAM Name: SAMANTA OGLESBY Room: [facility]#: [id number] Admission: 12/16/18 Attend Phys: Bessie Lema, Discharge: Date of : 77 Date of Service: 12/16/18 1600 Report #: [id number] TDI E/Lateral E': 11.50 E/Medial E': 7.67 Medial E' Nam.: 0.09 m/s Lateral E' Nam.: 0.06 m/s Pulmonary Valve PV Peak Nam.: 0.83 m/s PV Peak Gr.: 2.72 mmHg Tricuspid Valve RAP Estimate: 5.00 mmHg TR Peak Gr.: 23.90 mmHg RVSP: 28.90 mmHg PA Pressure: 28.90 mmHg Left Ventricle Left ventricle is mildly dilated. There is normal LV segmental wall motion. Mild concentric left ventricular hypertrophy. Left ventricular systolic function is normal. LVEF is 55-60%. Grade I - abnormal relaxation pattern. Right Ventricle The right ventricle is normal size. The right ventricular systolic function is normal. Atria Left atrium is mildly dilated. The right atrium size is normal. Aortic Valve The aortic valve is normal in structure. No aortic regurgitation is present. There is no aortic valvular stenosis. Mitral Valve The mitral valve is normal in structure. There is no mitral valve regurgitation noted. No evidence of mitral valve stenosis. Tricuspid Valve The tricuspid valve is normal in structure. Mild tricuspid regurgitation. No pulmonary hypertension. Pulmonic Valve The pulmonary valve is normal in structure. Mild pulmonic regurgitation. Great Vessels The aortic root is normal in size. IVC [place] [address] 2 D/M-MODE ECHOCARDIOGRAM Name: SAMANTA OGLESBY Room: [facility]#: [id number] Admission: 12/16/18 Attend Phys: Bessie Lema, Discharge: Date of : 77 Date of Service: 12/16/18 1600 Report #: [id number] collapses >50% with inspiration. Pericardium There is no pericardial effusion. <Conclusion> Left ventricle is mildly dilated. Mild concentric left ventricular hypertrophy. Left ventricular systolic function is normal. LVEF is 55-60%. Grade I - abnormal relaxation pattern. Left atrium is mildly dilated. Mild tricuspid regurgitation. No pulmonary hypertension. Mild pulmonic regurgitation. IVC is normal in size and collapses >50% with inspiration. There is no pericardial effusion. <ELECTRONICALLY SIGNED> By: Oj Mancini MD, FACC 12/16/181599 99 99 Oj Mancini MD, FACC /INF
== END ==
LOC: M.CRD 09:57
DX: I08.8 Other rheumatic multiple valve diseases (principal); I95.89 Other hypotension

== ENCOUNTER 2019-02-12 01:07 | Emergency (ER) | payer MEDICARE, BC ==
[~2019-02-12] VITALS: Ht 162.6 cm; Wt 122.5 kg
[2019-02-12 01:41] LABS: ABSOLUTE BASOPHILS 0.1 thou/uL (0.0-0.2); ABSOLUTE EOSINOPHILS 0.2 thou/uL (0.0-0.7); ABSOLUTE LYMPHOCYTES 1.5 thou/uL (0.8-5.3); ABSOLUTE NEUTROPHILS 7.6 thou/uL (1.6-8.1); EOSINOPHILS 1.9 %; HEMATOCRIT 36.1 % (42.0-52.0); HEMOGLOBIN 12.1 gm/dL (14.0-18.0); LYMPHOCYTES 14.3 %; MCH 32.1 pg (26.0-34.0); MCHC 33.5 g/dL (28.0-37.0); MCV 95.9 fL (80.0-100.0); MONOCYTES 9.9 %; MPV 8.9 fl. (7.2-11.1); NUCLEATED RBCS 0 /100WBC; PLATELET COUNT* 261 thou/uL (150-400); POLYS 72.9 %; RBC 3.76 mil/uL (4.50-6.00); RDW-CV 15.8 % (10.5-14.5); WBC 10.4 thou/uL (4.0-11.0)
[2019-02-12 01:53] LABS: CALCIUM 8.3 mg/dL (8.5-10.1); CREATININE 6.5 mg/dL (0.6-1.3); POTASSIUM 4.4 mmol/L (3.5-5.1)
[2019-02-12 01:58] LABS: ALBUMIN 3.4 g/dL (3.4-5.0); TOTAL BILIRUBIN 0.2 mg/dL (<0.1-1.0); TOTAL PROTEIN 8.2 g/dL (6.4-8.2)
[2019-02-12 04:00] VITALS: BP 144/92
--- NOTE | 2019-02-12 11:25 | EKG ---
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 : 1975 Requested By: Ovi Wright Order Number: [id number] MD: Oj Mancini Measurements Intervals [place] Rate: 97 P: 40 MA: 170 QRS: -11 QRSD: 107 T: 101 QT: 388 QTc: 493 Interpretive Statements Sinus rhythm Abnormal R-wave progression, late transition Nonspecific T abnormalities, lateral leads Borderline prolonged QT interval Compared to ECG 09/10/2018 06:59:15 T-wave abnormality now present Left ventricular hypertrophy no longer present Early repolarization no longer present ST (T wave) deviation no longer present Electronically Signed On 02-12-2019 11:25:39 CDT by Oj Mancini [email or web address] <ELECTRONICALLY SIGNED> By: Oj Mancini MD, FACC 02/12/19 1125 0 0 Oj Mancini MD, FACC /EPI
== END 2019-02-12 04:00 | disposition home or self-care (01) ==
LOC: M.ERS 01:07
PROVIDERS: Emergency Medicine Emergency Medical Services
DX: R00.2 Palpitations (principal); I13.2 Hypertensive heart and chronic kidney disease with heart failure and with stage 5 chronic kidney disease, or end stage renal disease; E11.22 Type 2 diabetes mellitus with diabetic chronic kidney disease; N18.6 End stage renal disease; I50.32 Chronic diastolic (congestive) heart failure; E66.01 Morbid (severe) obesity due to excess calories; Z68.42 Body mass index [BMI] 45.0-49.9, adult; Z99.2 Dependence on renal dialysis; Z86.14 Personal history of Methicillin resistant Staphylococcus aureus infection

== ENCOUNTER 2019-05-26 19:57 | Emergency (ER) | payer MEDICARE ==
[~2019-05-26] VITALS: Ht 162.6 cm; Wt 124.7 kg
[2019-05-26] MEDS ORDERED: NORCO 5-325 TA1 EAC1 PO (22:12)
[2019-05-26 23:08] VITALS: BP 174/80
== END 2019-05-26 23:09 | disposition home or self-care (01) ==
LOC: M.ERS 19:57
DX: S93.492A Sprain of other ligament of left ankle, initial encounter (principal); S80.01XA Contusion of right knee, initial encounter; I13.2 Hypertensive heart and chronic kidney disease with heart failure and with stage 5 chronic kidney disease, or end stage renal disease; E11.22 Type 2 diabetes mellitus with diabetic chronic kidney disease; N18.6 End stage renal disease; I50.32 Chronic diastolic (congestive) heart failure; E66.01 Morbid (severe) obesity due to excess calories; Z68.42 Body mass index [BMI] 45.0-49.9, adult; Z86.14 Personal history of Methicillin resistant Staphylococcus aureus infection; Z99.2 Dependence on renal dialysis; W01.0XXA Fall on same level from slipping, tripping and stumbling without subsequent striking against object, initial encounter; Y93.89 Activity, other specified; Y92.89 Other specified places as the place of occurrence of the external cause; Y99.8 Other external cause status

== ENCOUNTER 2019-10-18 02:51 | Inpatient (IN) | payer MEDICARE ==
[~2019-10-18] VITALS: Ht 165.1 cm; Wt 141.1 kg
[2019-10-18 03:00] VITALS: BP 209/84
[2019-10-18] MEDS ORDERED: RAYOS5 MG PO (03:08)
[2019-10-18 03:16] LABS: HEMATOCRIT 35.5 % (42.0-52.0); HEMOGLOBIN 11.6 gm/dL (14.0-18.0); MCH 31.9 pg (26.0-34.0); MCHC 32.6 g/dL (28.0-37.0); MCV 97.8 fL (80.0-100.0); MPV 9.2 fl. (7.2-11.1); NUCLEATED RBCS 0 /100WBC; PLATELET COUNT* 253 thou/uL (150-400); RBC 3.62 mil/uL (4.50-6.00); RDW-CV 15.1 % (10.5-14.5); WBC 13.9 thou/uL (4.0-11.0)
[2019-10-18 03:31] LABS: CALCIUM 7.3 mg/dL (8.5-10.1); CREATININE 9.6 mg/dL (0.6-1.3); POTASSIUM 5.5 mmol/L (3.5-5.1)
[2019-10-18 03:34] LABS: PROTIME 10.3 Seconds (9.20-11.50)
[2019-10-18 03:39] LABS: ALBUMIN 3.4 g/dL (3.4-5.0); TOTAL BILIRUBIN 0.3 mg/dL (<0.1-1.0); TOTAL PROTEIN 7.8 g/dL (6.4-8.2)
[2019-10-18 04:21] LABS: BE -2.6 mmol/L (-2 to +3); PCO2 43.5 mmHg (35.0-45.0); pH 7.343 (7.340-7.450)
[2019-10-18 04:24] LABS: PO2 47.4 mmHg (75.0-100.0)
[2019-10-18 05:30] VITALS: BP 138/59; BP 170/76
[2019-10-18] MEDS ORDERED: CARDIZEM SR 60M60 MG PO (06:30)
[2019-10-18] MEDS ORDERED: CALCIUM POLYCA625 MG PO (06:32)
[2019-10-18 06:33] LABS: ABSOLUTE LYMPHOCYTES 1.1 thou/uL (0.8-5.3); ABSOLUTE MONOCYTES 0.7 thou/uL (0.0-1.2); ABSOLUTE NEUTROPHILS 12.1 thou/uL (1.6-8.1)
[2019-10-18 06:34] LABS: PLATELET ESTIMATE ADEQUATE
[2019-10-18] MEDS ORDERED: TUMS300 MG PO (06:34)
[2019-10-18] MEDS ORDERED: VITAMIN D3 COM1 EACH PO (06:40)
[2019-10-18] MEDS ORDERED: VITAMIN D31250 MC1 PO (06:41)
[2019-10-18] MEDS ORDERED: PREDNISONE 10 M10 M1 PO (06:43)
--- NOTE | 2019-10-18 07:40 | NUR ---
RECEIVED PT FROM ED AT APPROX 0540 PER CART, ACCOMPANIED BY JENNIFER HAHN. PT IS AWAKE AND ORIENTED X4. SLITTER CUT OFF OPERATOR IS TRACING SR. PT DENIES CHEST PAIN AT THIS TIME. ADMISSION AND PHYSICAL ASSESSMENT DONE. PT IS ADVISED ON THE ROOM SET UP AND ON THE USE OF CALL LIGHT. PT IS ADVISED TO HAVE NOTHING BY MOUTH. PT IS NOT IN DISTRESS, NO DESATURATIONS NOTED ON 2L OF O2/NC. CALL LIGHT WITHIN REACH. HOURLY ROUNDING DONE FOR PT SAFETY.
[2019-10-18 07:53] VITALS: BP 122/71
[2019-10-18 11:40] VITALS: BP 145/68
[2019-10-18 16:18] VITALS: BP 140/71
[2019-10-18 20:00] VITALS: BP 174/76
[2019-10-19] VITALS: BP 136/63
[2019-10-19 04:17] VITALS: BP 150/71
--- NOTE | 2019-10-19 05:02 | NUR ---
PATIENT SLEPT WELL DURING THIS SHIFT. PT UP AD PAIGE TO BATHROOM. PT WITH PAIN IN RT HEEL; PAIN MEDICATION GIVEN X1 AT HS. PT SR ON MONITOR. PT HAS LT FOREARM FISTULA. PT SALINE LOCKED. PT ON O2 @ 2 LITERS. BLOOD SUGAR AT 2100 = 282; LISPRO 21 UNITS GIVEN. FREQUENTLY USED ITEMS AND CALL LIGHT WITHIN REACH. SIDERAILS UPX2. WILL CONTINUE TO MONITOR.
[2019-10-19 05:15] LABS: HEMATOCRIT 34.5 % (42.0-52.0); HEMOGLOBIN 11.6 gm/dL (14.0-18.0); MCHC 33.6 g/dL (28.0-37.0); MCV 95.5 fL (80.0-100.0); MPV 9.1 fl. (7.2-11.1); RBC 3.61 mil/uL (4.50-6.00); RDW-CV 15.1 % (10.5-14.5)
[2019-10-19 05:22] LABS: ALBUMIN 3.4 g/dL (3.4-5.0); CALCIUM 7.4 mg/dL (8.5-10.1); PHOSPHORUS* 7.7 mg/dL (2.5-4.9); TOTAL BILIRUBIN 0.3 mg/dL (<0.1-1.0); TOTAL PROTEIN 7.6 g/dL (6.4-8.2)
[2019-10-19 05:25] LABS: CREATININE 11.3 mg/dL (0.6-1.3)
[2019-10-19 05:28] LABS: POTASSIUM 6.5 mmol/L (3.5-5.1)
--- NOTE | 2019-10-19 14:54 | NUR ---
Pt is A&O. Resides at home with , kids and grandkids. Independent. No DME. No hx of HH or SNF. Pt is current at [facility] on a MWF schedule, CM updated Jeanette at [facility] of this hospitalization. Per , anticipate dc tomorrow, CM to fax referral and flowsheets to [facility] [phone] f:[phone]
[2019-10-19 15:07] LABS: CREATININE 7.4 mg/dL (0.6-1.3); POTASSIUM 4.5 mmol/L (3.5-5.1)
--- NOTE | 2019-10-19 15:34 | EKG ---
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: : 1975 Requested By: Mary Rosas Order Number: [id number] MD: Austin Spencer Measurements Intervals [place] Rate: 81 P: 37 LA: 162 QRS: 2 QRSD: 127 T: 74 QT: 411 QTc: 477 Interpretive Statements Sinus rhythm Nonspecific intraventricular conduction delay ST elev, probable normal early repol pattern Compared to ECG 02/12/2019 01:11:55 Intraventricular conduction delay now present ST (T wave) deviation now present T-wave abnormality no longer present Electronically Signed On 10-19-2019 15:34:18 CDT by Austin Spencer [email or web address] <ELECTRONICALLY SIGNED> By: Austin Spencer MD, [facility] 10/19/19 1534 0257 Austin Spencer MD, [facility] /EPI
[2019-10-19 16:02] VITALS: BP 185/85
--- NOTE | 2019-10-19 16:47 | CON ---
[address] [address] CONSULTATION Name: MENDELSAMANTA DELANEY Room: [address] IN .R.#: [id number] Admission: 10/19/19 Attend Phys: Kyara Stubbs Discharge: Date of : 77 Report #: [id number] THIS REPORT FOR: //name// cc: Austin Genao John E. DO THIS REPORT FOR: //name// CC: Austin Tan DATE OF SERVICE: 10/18/2019 CARDIOLOGY CONSULTATION HISTORY OF PRESENT ILLNESS: The patient is a 43-year-old male who I was asked to see in the hospital today after he complained of chest pain. The patient has an extensive and complicated past medical history. He has a long history of diabetes and hypertension. He developed end-stage renal disease and has been on hemodialysis. As part of the evaluation for kidney transplant, he actually underwent a heart catheterization in the past that showed no significant coronary artery disease. He also has a history of atrial arrhythmias. He had a previous history of supraventricular tachycardia and was placed on amiodarone. The patient is not very active at this time. He has a history of hypertension and had been on carvedilol, clonidine, and diltiazem in the past. However, recently his blood pressure noted to be low and he was taken off of his medications. The patient recently developed plantar fasciitis and was placed on prednisone. Last night after dinner, he developed a pressure in his chest. He had some belch with the episode. There was no radiation of the pain. Denied shortness of breath, palpitations, syncope. He has had no recent fever or cough. He came to the Emergency Room, his blood pressure noted to be elevated. He was admitted for further evaluation and treatment. PAST MEDICAL HISTORY: Otherwise significant for previous eye surgery, hip surgery, fistula placement for dialysis, hypertension, diabetes, and end-stage renal disease. CURRENT MEDICATIONS: Includes only amiodarone, aspirin, and Lasix. ALLERGIES: HE HAS AN ALLERGY TO PENICILLIN. FAMILY HISTORY: His father had a stroke. SOCIAL HISTORY: He is . He and his live here in [place]. He is on disability. He rarely drinks alcohol. Occasionally smokes marijuana. 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 No longer abuses drugs. [place] [address] CONSULTATION Name: OGLESBYSAMANTA BALTAZAR Room: [address]#: [id number] Admission: 10/19/19 Attend Phys: Kyara Stubbs Discharge: Date of : 77 Report #: [id number]. REVIEW OF SYSTEMS: He is overweight, being 5 feet 5 inches, 270 pounds. He has no history of stroke. He does snore at night. No history of asthma, peptic ulcer disease, liver disease, or cancer. He saw a counselor in the past. No chronic skin condition. PHYSICAL EXAMINATION: GENERAL: Revealed an obese middle-aged male, appeared in no distress. VITAL SIGNS: Blood pressure 210/84 on admission, pulse is 80. He was afebrile. HEENT: He was anicteric. Conjunctivae pink. Mucous membranes moist. NECK: Veins difficult to assess due to obesity. CHEST: Clear to auscultation. CARDIOVASCULAR: Regular rate and rhythm. ABDOMEN: Obese. EXTREMITIES: Had no edema. SKIN: Cool and dry. NEUROLOGIC: Nonfocal. IMAGING: His ECG on admission showed a sinus rhythm with nonspecific ST-segment changes. His workup, he had an echocardiogram last December that showed ejection fraction 60%, left ventricular hypertrophy, and left atrial enlargement. LABORATORY DATA: His lab work last night in the Emergency Room, sodium 129, BUN 104, creatinine 19.6, glucose 559. His liver function studies were normal. His troponins all 0.06. BNP 24,929. His white blood cell count 13.9 and hemoglobin 11.6. IMPRESSION AND RECOMMENDATIONS: 1. Chest pain. Atypical for angina. Suspect gastrointestinal. Previous heart catheterization showed no significant coronary artery disease. Recommend no further cardiac evaluation. 2. Hypertension. The patient was previously on a calcium zehra, beta zehra, and clonidine. I would recommend resuming medications at this time. 3. History of supraventricular tachycardia. The patient is on amiodarone. 4. Morbid obesity. 5. Snoring at night. I would rule out sleep apnea. 6. Recent episode of plantar fasciitis. The patient recently started on steroids. 7. Diabetes. <ELECTRONICALLY SIGNED> By: Marky Larry MD, [facility] 10/19/19 1647 0759 [id number] Larry MD, FAC /nt
--- NOTE | 2019-10-19 18:53 | NUR ---
PT TOLERATED AM DIALYSIS. POTASSIUM LEVEL WNP POST DIALYSIS. VSS ON 2L NC. SR WITH BBB ON MONITOR. RIGHT FA FISTULA SITE DRESSING CDI. PT TO DC TOMORROW.
[2019-10-19 20:10] VITALS: BP 139/58
[2019-10-20 01:49] VITALS: BP 153/71
[2019-10-20 04:44] VITALS: BP 162/70
[2019-10-20 04:50] LABS: HEMATOCRIT 35.8 % (42.0-52.0); HEMOGLOBIN 12.1 gm/dL (14.0-18.0); MCH 32.2 pg (26.0-34.0); MCHC 33.8 g/dL (28.0-37.0); MCV 95.3 fL (80.0-100.0); MPV 8.9 fl. (7.2-11.1); RBC 3.76 mil/uL (4.50-6.00); RDW-CV 15.2 % (10.5-14.5); WBC 11.3 thou/uL (4.0-11.0)
[2019-10-20 04:53] LABS: ALBUMIN 3.3 g/dL (3.4-5.0); CALCIUM 7.7 mg/dL (8.5-10.1); MAGNESIUM 2.5 mg/dL (1.8-2.4); PHOSPHORUS* 7.4 mg/dL (2.5-4.9)
[2019-10-20 05:01] LABS: POTASSIUM 5.8 mmol/L (3.5-5.1)
--- NOTE | 2019-10-20 05:39 | NUR ---
PT CARE ASSUMED AT 1930. SAT MAINTAINED IN RA. ALERT AND ORIENTED X4. C/O PAIN, MEDICATION GIVEN PER EMAR. CALL LIGHT WITHIN REACH AND BED IN LOW POSITION. HOURLY ROUNDING DONE FOR PT SAFETY.
[2019-10-20 08:00] VITALS: BP 193/79
[2019-10-20] MEDS ORDERED: VOLTAREN100 GM TOP (08:10)
[2019-10-20] MEDS ORDERED: CARVEDILOL12.5 MG PO (08:10)
[2019-10-20 11:42] VITALS: BP 193/79
--- NOTE | 2019-10-20 12:09 | NUR ---
pt discharged to home in stable condition. dc instructions, prescriptions and folow up reviewed with pt and pt reports understanding
--- NOTE | 2019-10-20 12:24 | NUR ---
Pt discharged to home today, CM faxed H&P, covid test and dialysis flowsheets to [facility] JACK.
--- NOTE | 2019-10-20 14:34 | CON ---
[address] [address] CONSULTATION Name: SAMANTA OGLESBY Room: [address] IN .R.#: [id number] Admission: 10/19/19 Attend Phys: Kyara Stubbs Discharge: 10/20/19 Date of : 77 Report #: [id number] THIS REPORT FOR: //name// cc: Austin Genao John E. DO ~ THIS REPORT FOR: //name// CC: Austin Olsen DATE OF SERVICE: 10/18/2019 REASON FOR CONSULTATION: End-stage renal disease. REQUESTING PHYSICIAN: Dr. Jv Olsen DO. HISTORY OF PRESENT ILLNESS: The patient is a 43-year-old male with medical history significant for end-stage renal disease, diabetes mellitus type 2, hypertension, presents to the Emergency Room with complaints of chest pain. He was evaluated by packaging technician and assessment was obtained, most likely noncardiac. No further workup recommended. SOCIAL HISTORY: No tobacco or alcohol abuse. FAMILY HISTORY: Noncontributory. MEDICATIONS: Reviewed. REVIEW OF SYSTEMS: His chest pain resolved today. Denies any fever or chills. No shortness of breath. He states his diabetes is not controlled because Cash Sales Audit Clerk gave him some prednisone. Rest of the systems reviewed and negative. PHYSICAL EXAMINATION: GENERAL: Awake, alert, oriented, no acute distress. VITAL SIGNS: Blood pressure 138/59 now, but was as high as 200/84 yesterday. Heart rate 69, afebrile. HEENT: Pupils round. NECK: Supple. He has been neck fatty. LUNGS: Decreased air movements at the bases. CARDIOVASCULAR: Distant heart tones. ABDOMEN: Obese, soft. There is some fluid retention and abdominal wall. LOWER EXTREMITIES: Trace edema. LABORATORY DATA: Significant for potassium of 5.5 and serum sodium of 129. ASSESSMENT: [address] [place] [address] CONSULTATION Name: SAMANTA OGLESBY Room: [address]#: [id number] Admission: 10/19/19 Attend Phys: Kyara Stubbs Discharge: 10/20/19 Date of : 77 Report #: [id number] 1. End-stage renal disease. 2. Hypertension. 3. Diabetes. 4. Obesity. 5. Mild hyperkalemia, mild hyponatremia due to end-stage renal disease. PLAN: 1. The patient is making some urine, so we will give him some Lasix today. 2. Dialysis tomorrow. 3. Renal diet. 4. Discussed with Dr. Mccall. <ELECTRONICALLY SIGNED> By: Robel Monk MD 10/20/19 1434 1040 [id number] Monk MD /LOU
== END 2019-10-20 12:10 | disposition home or self-care (01) | DRG 291 ==
LOC: M.ERS 02:51 → M.TBA-ER 04:10 → M.2W 04:29
PROVIDERS: Family Medicine; Personal Emergency Response Attendant; ADMIT Internal Medicine; ATTEND Internal Medicine
PROC: 5A1D70Z Performance of Urinary Filtration, Intermittent, Less than 6 Hours Per Day (ICD-10-PCS; principal; 2019-10-19)
DX: I13.2 Hypertensive heart and chronic kidney disease with heart failure and with stage 5 chronic kidney disease, or end stage renal disease (principal); J96.01 Acute respiratory failure with hypoxia; N18.6 End stage renal disease; I50.33 Acute on chronic diastolic (congestive) heart failure; I16.1 Hypertensive emergency; E87.1 Hypo-osmolality and hyponatremia; Z68.43 Body mass index [BMI] 50.0-59.9, adult; K21.9 Gastro-esophageal reflux disease without esophagitis; I20.9 Angina pectoris, unspecified; E11.22 Type 2 diabetes mellitus with diabetic chronic kidney disease; E66.01 Morbid (severe) obesity due to excess calories; E11.65 Type 2 diabetes mellitus with hyperglycemia; I48.91 Unspecified atrial fibrillation; E87.5 Hyperkalemia; E78.5 Hyperlipidemia, unspecified; M72.2 Plantar fascial fibromatosis; D72.0 Genetic anomalies of leukocytes; I95.3 Hypotension of hemodialysis; Z20.828 Contact with and (suspected) exposure to other viral communicable diseases; R79.1 Abnormal coagulation profile; D63.8 Anemia in other chronic diseases classified elsewhere; Z99.2 Dependence on renal dialysis; Z79.4 Long term (current) use of insulin; Z79.899 Other long term (current) drug therapy; Z88.0 Allergy status to penicillin

== ENCOUNTER → 2020-02-01 | Outpatient (CLI) | payer MEDICARE, BC ==
[~2020-02-01] MED LIST changes: +CALCIUM POLYCA625 MG PO; +CARDIZEM SR 60M60 MG PO; +PREDNISONE 10 M10 M1 PO; +RAYOS5 MG PO; +TUMS300 MG PO; +VITAMIN D3 COM1 EACH PO; +VITAMIN D31250 MC1 PO; +VOLTAREN100 GM TOP
== END ==
LOC: M.LAB 15:01
PROVIDERS: ATTEND Internal Medicine Nephrology
DX: N18.6 End stage renal disease (principal); Z99.2 Dependence on renal dialysis

== ENCOUNTER 2020-02-14 01:49 | Inpatient (IN) | payer MEDICARE, BC ==
[~2020-02-14] VITALS: Ht 165.1 cm; Wt 120.2 kg
--- NOTE | ~2020-02-14 | CON ---
[address] [place] [address] CONSULTATION Name: OGLESBYSAMANTA BALTAZAR Room: [address] IN M.R.#: [id number] Admission: 02/14/20 Attend Phys: Deni Amato, Discharge: 02/15/20 Date of : 77 Report #: [id number] THIS REPORT FOR: //name// cc: Austin Genao John E. DO ~ CONSULTING PHYSICIAN: Deni Amato MD REASON FOR CONSULTATION: End-stage kidney disease. HISTORY OF PRESENT ILLNESS: A 44-year-old gentleman who has a history of end-stage kidney disease, recently hospitalized at [facility] ____ postoperative for a parathyroidectomy for underlying secondary hyperparathyroidism. He was asymptomatic and not have any issues with hypocalcemia, not requiring any intravenous calcium at that time. He is admitted with some palpitations. He also has some constipation. His potassium was elevated at 6.3 today. He is seen on dialysis, tolerating treatment well. His constipation is resolved. He had a bowel movement today. He is not having any perioral numbness or tingling. Currently, has no complaints. REVIEW OF SYSTEMS: Constitutional, psych, heme, eyes, ENT, respiratory, cardiac, GI, , endocrine, all negative except as documented above. PAST MEDICAL HISTORY: End-stage kidney disease, on hemodialysis at the [facility], hypertension, diabetes type 2, secondary hyperparathyroidism, history of eye surgeries, morbid obesity, diastolic heart failure. SOCIAL HISTORY: No tobacco. FAMILY HISTORY: Not pertinent in this 44-year-old gentleman. CURRENT MEDICATIONS: Reviewed. PHYSICAL EXAMINATION: VITAL SIGNS: Blood pressure is 179/81, pulse 75, respirations 16, temperature 36.4. GENERAL: No acute distress. EYES: Open. EARS: Externally normal. NECK: Supple. CARDIOVASCULAR: Regular rate. LUNGS: No crackles. ABDOMEN: Soft. MUSCULOSKELETAL: Nontender. PSYCHIATRIC: Awake, alert. LABORATORY DATA: White cell count 12.7, hemoglobin 10.8, platelets 271[place] [address] CONSULTATION Name: SAMANTA OGLESBY Room: [address]#: [id number] Admission: 02/14/20 Attend Phys: Deni Amato, Discharge: 02/15/20 Date of : 77 Report #: [id number], potassium 5.8, chloride 97, bicarbonate 28, BUN 75, creatinine 9.1, glucose 180, calcium 7.8. ASSESSMENT: 1. End-stage kidney disease, hemodialysis Saturday, Saturday and Saturday at the [facility]. 2. Secondary hyperparathyroidism, status post parathyroidectomy in 11/2019 at [facility]. 3. Tendency toward mild hyperkalemia. 4. Hypertension. 5. History of supraventricular tachycardia, has received adenosine in the past. 6. Diabetes. 7. Vitamin D deficiency. 8. History of diastolic heart failure. PLAN: 1. The patient is seen on dialysis, tolerating treatment well. 2. Low potassium dialysate. 3. Ultrafilter as tolerated. 4. Advised and educated on maintaining regular bowel movements to avoid hyperkalemia and also educated on symptoms of hypocalcemia, he is not having any at present as an outpatient in the Dialysis Unit, he is being treated with intravenous vitamin D, and he is on oral calcium with weekly calcium monitoring and we are making arrangements to see if we can use a higher calcium dialysate in the Dialysis Unit. We will follow along for dialysis needs. Thank you for requesting my opinion in the care and management of this patient. By: 1619 Alexsandra Castrejon MD /angelo
[2020-02-14 01:58] VITALS: BP 170/54
[2020-02-14 02:24] LABS: ABSOLUTE EOSINOPHILS 0.3 thou/uL (0.0-0.7); ABSOLUTE LYMPHOCYTES 1.4 thou/uL (0.8-5.3); ABSOLUTE NEUTROPHILS 9.6 thou/uL (1.6-8.1); BASOPHILS 0.3 %; EOSINOPHILS 2.1 %; HEMATOCRIT 33.1 % (42.0-52.0); HEMOGLOBIN 10.9 gm/dL (14.0-18.0); LYMPHOCYTES 11.4 %; MCH 31.5 pg (26.0-34.0); MCHC 32.9 g/dL (28.0-37.0); MCV 95.8 fL (80.0-100.0); MONOCYTES 8.4 %; MPV 7.9 fl. (7.2-11.1); NUCLEATED RBCS 0 /100WBC; PLATELET COUNT* 262 thou/uL (150-400); POLYS 77.8 %; RBC 3.45 mil/uL (4.50-6.00); RDW-CV 14.7 % (10.5-14.5); WBC 12.4 thou/uL (4.0-11.0)
[2020-02-14 02:33] LABS: CALCIUM 7.3 mg/dL (8.5-10.1); CREATININE 7.4 mg/dL (0.6-1.3); POTASSIUM 4.7 mmol/L (3.5-5.1)
[2020-02-14 02:37] LABS: APTT 26.6 Seconds (25.0-31.3); PROTIME 10.1 Seconds (9.20-11.50)
[2020-02-14 02:43] LABS: ALBUMIN 2.8 g/dL (3.4-5.0); MAGNESIUM 2.6 mg/dL (1.8-2.4); TOTAL BILIRUBIN 0.2 mg/dL (<0.1-1.0); TOTAL PROTEIN 7.6 g/dL (6.4-8.2)
[2020-02-14 08:23] VITALS: BP 139/51
[2020-02-14] MEDS ORDERED: RENVELA800 MG PO (10:58)
[2020-02-14] MEDS ORDERED: VELPHORO500 MG PO (10:58)
[2020-02-14 11:16] LABS: CALCIUM 7.3 mg/dL (8.5-10.1); CREATININE 8.2 mg/dL (0.6-1.3); POTASSIUM 5.4 mmol/L (3.5-5.1)
[2020-02-14 11:30] VITALS: BP 153/57
--- NOTE | 2020-02-14 12:53 | EKG ---
[place] [address] ELECTROCARDIOGRAM REPORT Name: OGLESBYSAMANTA BALTAZAR Room: [facility]-9 ADM IN [facility].#: [id number] Admission: 02/14/20 Attend Phys: Deni Rojas Discharge: Date of : 77 Date of Service: 02/14/20 0157 Report #: [id number] THIS REPORT FOR: //name// [facility] ED Test Date: 2020-02-14 Test Time: 01:57:08 Pat Name: SAMANTA OGLESBY Department: Room: [facility] Gender: M Decorator Inspector: [place] : 1975 Requested By: Ovi Wright Order Number: [id number] MD: Oj Mancini Measurements Intervals [place] Rate: 76 P: 2 MD: 164 QRS: -10 QRSD: 107 T: 87 QT: 408 QTc: 459 Interpretive Statements Sinus rhythm Abnormal R-wave progression, late transition Borderline repolarization abnormality Compared to ECG 10/18/2019 02:57:54 Intraventricular conduction delay no longer present ST (T wave) deviation no longer present Electronically Signed On 02-14-2020 12:52:55 FLEXO PRESS OPERATOR by Oj Mancini [email or web address] <ELECTRONICALLY SIGNED> By: Oj Mancini MD, FACC 02/14/20 1252 0157 0157 Oj Mancini MD, FACC /EPI
--- NOTE | 2020-02-14 14:54 | NUR ---
THIS NURSE SPOKE WITH NEPHROLOGY DR FOR CONSULT. DISCUSSED POTASSIUM, REASON FOR ADMISSION & DAYS FOR DIALYSIS. CONFIRMED LABS & PLAN OF CARE. DR STATED PT WILL BE SCHEDULED FOR DIALYSIS TOMORROW.
[2020-02-14 15:00] VITALS: BP 182/83
[2020-02-14 19:00] VITALS: BP 193/58
[2020-02-15 00:12] VITALS: BP 166/66
[2020-02-15 05:10] LABS: HEMATOCRIT 33.1 % (42.0-52.0); HEMOGLOBIN 10.8 gm/dL (14.0-18.0); MCH 30.9 pg (26.0-34.0); MCHC 32.5 g/dL (28.0-37.0); MCV 94.9 fL (80.0-100.0); MPV 8.2 fl. (7.2-11.1); RBC 3.49 mil/uL (4.50-6.00); RDW-CV 14.6 % (10.5-14.5); WBC 12.7 thou/uL (4.0-11.0)
[2020-02-15 06:37] VITALS: BP 166/66
[2020-02-15 06:40] VITALS: BP 185/85
--- NOTE | 2020-02-15 06:45 | NUR ---
RECEIVED REPORT EARLIER FROM ER. PT TO ROOM PER BED. NO DISTRESS. CALL LIGHT IN REACH. TELEMETRY APPLIED SHOWING SR.
[2020-02-15 06:53] LABS: ALBUMIN 2.8 g/dL (3.4-5.0); CALCIUM 7.8 mg/dL (8.5-10.1); CREATININE 9.4 mg/dL (0.6-1.3); MAGNESIUM 2.8 mg/dL (1.8-2.4); TOTAL BILIRUBIN 0.4 mg/dL (<0.1-1.0); TOTAL PROTEIN 7.8 g/dL (6.4-8.2)
[2020-02-15 06:57] LABS: POTASSIUM 6.3 mmol/L (3.5-5.1)
[2020-02-15 08:00] VITALS: BP 178/77
[2020-02-15 12:00] VITALS: BP 179/81
--- NOTE | 2020-02-15 13:43 | CON ---
[address] [address] CONSULTATION Name: MEDNELSAMANTA DELANEY Room: [address] IN .R.#: [id number] Admission: 02/14/20 Attend Phys: Deni Amato, Discharge: Date of : 77 Report #: [id number] THIS REPORT FOR: //name// cc: Austin Genao John E. DO ~ DATE OF SERVICE: 02/15/2020 CARDIOLOGY CONSULTATION HISTORY OF PRESENT ILLNESS: The patient is a 44-year-old [place] Citizen male, who I was asked to see in the hospital after he complained of palpitations. The patient has an extensive past medical history. He developed end-stage renal disease and has been on dialysis for about the past 4 years. I actually saw him in the past for preop kidney transplant evaluation. He had cardiac catheterization in 06/2017 that showed only 40% narrowing in the LAD, ejection fraction of 50%. He has a history of PSVT and is apparently required cardioversion with IV medications in the past. Chronically, he has been on amiodarone. He has a history of hypertension, although in the past, he developed episodes of low blood pressure, requiring midodrine when he was dialyzed. He actually saw my nurse practitioner in October. He stays active, swimming every day at a community center. Last few days, he has had episodes when his heart would race. He has had no syncope. Denies any chest pain, increased shortness of breath, fever, or peripheral edema. He has been going to dialysis 3 days a week. He finally came to the Emergency Room 2 days ago, was admitted. He denied any fever or cough. PAST MEDICAL HISTORY: He has had eye surgery, hip surgery. He notes 2 weeks ago, he had parathyroidectomy at [facility] in [place]. He has a history of hypertension and hyperlipidemia. No history of diabetes. CURRENT MEDICATIONS: Include amiodarone, aspirin, Lipitor, carvedilol, Voltaren, diltiazem, Lasix every other day, midodrine as needed for low blood pressure when he is on dialysis. ALLERGIES: He has no known drug allergies. FAMILY HISTORY: Negative for heart disease. SOCIAL HISTORY: He is . He and his live in [place]. He is not working at this time. Quit smoking years ago. Rarely drinks alcohol. 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 REVIEW OF SYSTEMS: He is overweight; being 5 feet, 4 inches; 282 pounds. No history of stroke. He does have sleep apnea and he uses oxygen. No history of asthma, GI bleeding, liver disease, cancer. He saw a psychiatrist in the past [address], [place] [address] CONSULTATION Name: SAMANTA OGLESBY Room: [address] IN [facility].#: [id number] Admission: 02/14/20 Attend Phys: Deni Amato, Discharge: Date of : 77 Report #: [id number] for depression. No chronic skin condition. PHYSICAL EXAMINATION: GENERAL: Revealed a middle-aged [place] Citizen male, who appeared in no distress. VITAL SIGNS: He had a blood pressure of 140/60, pulse is 80. He is afebrile. HEENT: He was anicteric. Conjunctivae pink. Mucous membranes moist. NECK: Veins difficult to assess due to obesity. CHEST: Clear to auscultation. HEART: Regular rate and rhythm. ABDOMEN: Obese. EXTREMITIES: Had no edema. Posterior tib pulse 2+ bilaterally. SKIN: Cool and dry. NEUROLOGIC: Nonfocal. His ECG in the Emergency Room 2 days ago showed a sinus rhythm, nonspecific ST-segment changes. His workup, he actually had an echocardiogram a year ago that showed an ejection fraction of 60%, left atrial enlargement. In the Emergency Room yesterday, he had a portable chest x-ray that showed cardiomegaly, mild pulmonary vascular congestion. He had a V/Q scan of the chest that showed normal perfusion, no evidence of pulmonary embolus. He had venous duplex scan of the legs that showed no DVT. LABORATORY WORK: Sodium 130, potassium 6.3, creatinine 9.4, glucose 194. Alkaline phosphatase 203. Troponins were all 0.06. In October, his TSH was 0.8, T4 was 0.9. His white blood cell count was 12.7, hemoglobin 10.8. IMPRESSION AND RECOMMENDATIONS: 1. Palpitations. History of paroxysmal supraventricular tachycardia. No episodes noted. At this time, I think it is reasonable to discharge the patient on his beta-zehra, carvedilol and amiodarone. I would recommend a 30-day monitor to look for recurrent atrial fibrillation. If it is indeed documented, I would increase the amiodarone to 400 mg a day. 2. Hypertension. The patient is on beta-zehra and calcium zehra. 3. Morbid obesity. 4. End-stage renal disease. The patient is on hemodialysis. 5. History of illicit drug use. 6. Sleep apnea. The patient on oxygen. 7. Recent parathyroidectomy at [facility]. <ELECTRONICALLY SIGNED> By: Marky Larry MD, [facility] 02/15/20 1343 0916 [id number] Román Larry MD, KELLEY /nt
[2020-02-15 15:44] LABS: CALCIUM 7.8 mg/dL (8.5-10.1); CREATININE 9.1 mg/dL (0.6-1.3); POTASSIUM 5.8 mmol/L (3.5-5.1)
--- NOTE | 2020-02-15 17:59 | NUR ---
ASSESSMENT DOCUMENTED. MEDS GIVEN PER E-MAR. IV PATENT. NO REPORTS OF PAIN. PT CURRENTLY IN DIALYSIS.
[2020-02-15 18:21] VITALS: BP 179/81
[2020-02-15 19:24] LABS: CALCIUM 8.4 mg/dL (8.5-10.1); CREATININE 4.7 mg/dL (0.6-1.3)
== END 2020-02-15 20:00 | disposition home or self-care (01) | DRG 640 ==
LOC: M.ERS 01:49 → M.TBA-ER 03:30 → M.2W 02-15 06:57
PROVIDERS: Emergency Medicine Emergency Medical Services; Internal Medicine; ADMIT Family Medicine; ATTEND Family Medicine
PROC: 5A1D70Z Performance of Urinary Filtration, Intermittent, Less than 6 Hours Per Day (ICD-10-PCS; principal; 2020-02-15)
DX: E83.51 Hypocalcemia (principal); N18.6 End stage renal disease; I13.2 Hypertensive heart and chronic kidney disease with heart failure and with stage 5 chronic kidney disease, or end stage renal disease; I50.32 Chronic diastolic (congestive) heart failure; Z68.41 Body mass index [BMI] 40.0-44.9, adult; T46.1X5A Adverse effect of calcium-channel blockers, initial encounter; E87.5 Hyperkalemia; E11.22 Type 2 diabetes mellitus with diabetic chronic kidney disease; E66.01 Morbid (severe) obesity due to excess calories; E78.5 Hyperlipidemia, unspecified; Z20.828 Contact with and (suspected) exposure to other viral communicable diseases; Z79.899 Other long term (current) drug therapy; Z87.891 Personal history of nicotine dependence; Z99.2 Dependence on renal dialysis

== ENCOUNTER 2020-09-19 23:29 | Inpatient (IN) | payer MEDICARE, BC ==
[~2020-09-19] VITALS: Ht 165.1 cm; Wt 131.1 kg
[2020-09-19 23:40] VITALS: BP 108/44
[2020-09-20 01:26] LABS: HEMATOCRIT 30.8 % (42.0-52.0); HEMOGLOBIN 10.2 gm/dL (14.0-18.0); MCH 31.1 pg (26.0-34.0); MCHC 33.1 g/dL (28.0-37.0); MCV 94.1 fL (80.0-100.0); MPV 7.2 fl. (7.2-11.1); NUCLEATED RBCS 0 /100WBC; PLATELET COUNT* 462 thou/uL (150-400); RBC 3.27 mil/uL (4.50-6.00); RDW-CV 16.3 % (10.5-14.5); WBC 18.2 thou/uL (4.0-11.0)
[2020-09-20 01:36] LABS: CREATININE 6.9 mg/dL (0.6-1.3); POTASSIUM 5.4 mmol/L (3.5-5.1)
[2020-09-20 01:41] LABS: ALBUMIN 2.9 g/dL (3.4-5.0); MAGNESIUM 2.5 mg/dL (1.8-2.4); TOTAL BILIRUBIN 0.5 mg/dL (<0.1-1.0); TOTAL PROTEIN 8.7 g/dL (6.4-8.2)
[2020-09-20 02:16] LABS: BE 2.7 mmol/L (-2 to +3); PCO2 VENOUS 49.8 mmHg (41.0-51.0); PO2 VENOUS 52.9 mmHg (35.0-45.0)
[2020-09-20 02:50] LABS: ABSOLUTE LYMPHOCYTES 2.4 thou/uL (0.8-5.3); ABSOLUTE MONOCYTES 0.9 thou/uL (0.0-1.2); ABSOLUTE NEUTROPHILS 14.9 thou/uL (1.6-8.1); PLATELET ESTIMATE INCREASED
[2020-09-20] MEDS ORDERED: TRESIBA100 UNIT/1 (03:31)
[2020-09-20] MEDS ORDERED: HUMALOG100 UNIT/1 SUBQ (03:32)
[2020-09-20 07:13] VITALS: BP 87/52
[2020-09-20 12:03] VITALS: BP 140/76
--- NOTE | 2020-09-20 14:05 | EKG ---
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 : 1975 Requested By: Mary Rosas Order Number: [id number] MD: Austin Spencer Measurements Intervals [place] Rate: 77 P: 25 NE: 157 QRS: 63 QRSD: 104 T: -82 QT: 410 QTc: 465 Interpretive Statements Sinus rhythm Abnormal T, consider ischemia, inferior leads Minimal ST elevation, lateral leads Baseline wander in lead(s) I,II,aVR,aVL,aVF,V1,V2,V3,V4,V5 Compared to ECG 02/14/2020 01:57:08 T-wave abnormality now present Possible ischemia now present ST (T wave) deviation now present Electronically Signed On 09-20-2020 14:05:45 CDT by Austin Spencer [email or web address] <ELECTRONICALLY SIGNED> By: Austin Spencer MD, [facility] 09/20/20 1405 2344 2344 Austin Spencer MD, [facility] /EPI
--- NOTE | 2020-09-20 15:44 | 2DMMODE ---
[place] [address] 2 D/M-MODE ECHOCARDIOGRAM Name: SAMANTA OGLESBY Room: [address] IN .R.#: [id number] Admission: 09/20/20 Attend Phys: Ankit Agosto, Discharge: Date of : 77 Date of Service: 09/20/20 1544 Report #: [id number] THIS REPORT FOR: cc: Austin Genao John E. DO Holkins,Austin Barron MD [facility] ~ APPROVED REPORT Study performed: 09/20/2020 14:20:36 EXAM: Comprehensive 2D, Doppler, and color-flow Echocardiogram Patient Location: In-Patient Room #: [facility] Status: routine BSA: 2.24 HR: 74 bpm BP: 140/76 mmHg Rhythm: NSR Other Information Study Quality: Good Indications Congestive Heart Failure Pericardial Effusion Pleural Effusion 2D Dimensions IVSd: 10.19 (7-11mm) LVOT Diam: 21.54 (18-24mm) LVDd: 54.68 mm PWd: 10.55 (7-11mm) Ascending Ao: 32.58 (22-36mm) LVDs: 31.96 (25-40mm) Aortic Root: 33.66 mm Volumes Left Atrial Volume (Systole) LA ESV Index: 33.10 mL/m2 Aortic Valve AoV Peak Nam.: 1.20 m/s AO Peak Gr.: 5.80 mmHg LVOT Max P.31 mmHg AO Mean Gr.: 3.68 mmHg LVOT Mean P.59 mmHg LVOT Max V: 1.15 m/s AO V2 VTI: 21.45 cm LVOT Mean V: 0.74 m/[place] [address] 2 D/M-MODE ECHOCARDIOGRAM Name: SAMANTA OGLESBY Room: [address] IN .R.#: [id number] Admission: 09/20/20 Attend Phys: Ankit Agosto, Discharge: Date of : 77 Date of Service: 09/20/20 1544 Report #: [id number] NAMAN (VTI): 4.26 cm2 LVOT V1 VTI: 25.10 cm Mitral Valve E/A Ratio: 1.19 MV Decel. Time: 232.06 ms MV E Max Nam.: 1.08 m/s MV PHT: 67.30 ms MVA (PHT): 3.27 cm2 TDI E/Lateral E': 13.50 E/Medial E': 13.50 Medial E' Nam.: 0.08 m/s Lateral E' Nam.: 0.08 m/s Pulmonary Valve PV Peak Nam.: 0.85 m/s PV Peak Gr.: 2.91 mmHg Tricuspid Valve RAP Estimate: 5.00 mmHg TR Peak Gr.: 30.52 mmHg RVSP: 35.00 mmHg PA Pressure: 35.00 mmHg Left Ventricle The left ventricle is normal size. There is normal LV segmental wall motion. Mild concentric left ventricular hypertrophy. Left ventricular systolic function is normal. The left ventricular ejection fraction is within the normal range. LVEF is 60%. The left ventricular diastolic function is normal. Right Ventricle The right ventricle is normal size. The right ventricular systolic function is normal. Atria The left atrium size is normal. The right atrium size is normal. Aortic Valve The aortic valve is normal in structure. No aortic regurgitation is present. There is no aortic valvular stenosis. Mitral Valve Mild mitral annular calcification. There is no mitral valve regurgitation noted. No evidence of mitral valve stenosis[place] [address] 2 D/M-MODE ECHOCARDIOGRAM Name: SAMANTA OGLESBY Room: [address] IN [facility]#: [id number] Admission: 09/20/20 Attend Phys: Ankit Agosto, Discharge: Date of : 77 Date of Service: 09/20/20 1544 Report #: [id number] The tricuspid valve is normal in structure. Mild tricuspid regurgitation. Pulmonic Valve The pulmonary valve is normal in structure. Trace pulmonic regurgitation. Great Vessels The aortic root is normal in size. IVC is normal in size and collapses >50% with inspiration. Pericardium Moderate circumferential pericardial effusion. There is no evidence for hemodynamic effect. <Conclusion> The left ventricle is normal size. Mild concentric left ventricular hypertrophy. Left ventricular systolic function is normal. The left ventricular ejection fraction is within the normal range. LVEF is 60%. The right ventricle is normal size. The left atrium size is normal. The aortic valve is normal in structure. Mild mitral annular calcification. There is no mitral valve regurgitation noted. No evidence of mitral valve stenosis. The tricuspid valve is normal in structure. Mild tricuspid regurgitation. IVC is normal in size and collapses >50% with inspiration. Moderate circumferential pericardial effusion. There is no evidence for hemodynamic effect. There is normal LV segmental wall motion. <ELECTRONICALLY SIGNED> By: Austin Spencer MD, FACC 09/20/20 1544 1544 1544 Austin Spencer MD, FACC /INF
[2020-09-20 16:41] VITALS: BP 81/52
[2020-09-20 20:34] VITALS: BP 99/52
[2020-09-21] VITALS (7 sets, daily range): BP systolic 106–150; BP diastolic 29–80
--- NOTE | 2020-09-21 14:16 | EKG ---
[place] [address] ELECTROCARDIOGRAM REPORT Name: MENDELSAMANTA R Room: [address] ADM IN M.R.#: [id number] Admission: 09/20/20 Attend Phys: Ankit Agosto, Discharge: Date of : 77 Date of Service: 09/21/20 0917 Report #: [id number] THIS REPORT FOR: //name// [facility] Test Date: 2020-09-21 Test Time: 09:17:38 Pat Name: SAMANTA OGLESBY Department: Room: [address] Gender: M Bilingual Administrative Assistant: : 1975 Requested By: Jv Olsen Order Number: [id number] Garcia MD: Austin Spencer Measurements Intervals [place] Rate: 76 P: 36 [place]: 183 QRS: 33 QRSD: 128 T: 146 QT: 424 QTc: 477 Interpretive Statements Sinus rhythm IVCD, consider atypical RBBB Abnormal T, consider ischemia, lateral leads Compared to ECG 09/19/2020 23:44:40 ST (T wave) deviation no longer present T-wave abnormality still present Possible ischemia still present Electronically Signed On 09-21-2020 14:16:32 CDT by Austin Spencer [email or web address] <ELECTRONICALLY SIGNED> By: Austin Spencer MD, [facility] 09/21/20 1416 6 6 Austin Spencer MD, [facility] /EPI
[2020-09-22] VITALS (8 sets, daily range): BP systolic 93–122; BP diastolic 28–61
[2020-09-22 11:15] LABS: ABSOLUTE EOSINOPHILS 0.1 thou/uL (0.0-0.7); ABSOLUTE LYMPHOCYTES 1.4 thou/uL (0.8-5.3); ABSOLUTE MONOCYTES 1.1 thou/uL (0.0-1.2); BASOPHILS 0.2 %; LYMPHOCYTES 10.3 %; MCH 30.9 pg (26.0-34.0); MCHC 32.4 g/dL (28.0-37.0); MCV 95.4 fL (80.0-100.0); MONOCYTES 8.2 %; MPV 7.2 fl. (7.2-11.1); NUCLEATED RBCS 0 /100WBC; PLATELET COUNT* 423 thou/uL (150-400); POLYS 80.3 %; RBC 3.25 mil/uL (4.50-6.00); RDW-CV 16.3 % (10.5-14.5); WBC 13.7 thou/uL (4.0-11.0)
[2020-09-22 11:22] LABS: CALCIUM 7.1 mg/dL (8.5-10.1); CREATININE 7.8 mg/dL (0.6-1.3); POTASSIUM 5.6 mmol/L (3.5-5.1)
--- NOTE | 2020-09-22 16:32 | EKG ---
[place] [address] ELECTROCARDIOGRAM REPORT Name: MENDELSAMANTA R Room: [address] ADM IN M.R.#: [id number] Admission: 09/20/20 Attend Phys: Ankit Agosto, Discharge: Date of : 77 Date of Service: 09/22/20 0129 Report #: [id number] THIS REPORT FOR: //name// [facility] Test Date: 2020-09-22 Test Time: 01:29:50 Pat Name: SAMANTA OGLESBY Department: Room: [address] Gender: M Integrity Assessor: NORBERTO : 1975 Requested By: Jv Olsen Order Number: [id number] Garcia MD: Austin Spencer Measurements Intervals [place] Rate: 152 P: 0 [place]: 126 QRS: 38 QRSD: 117 T: 196 QT: 329 QTc: 523 Interpretive Statements Sinus tachycardia Nonspecific intraventricular conduction delay Repol abnrm inferolateral ischemia must be considered Baseline wander in lead(s) V3 Compared to ECG 09/21/2020 09:17:38 Early repolarization now present ST (T wave) deviation now present Sinus rate has increased Possible ischemia still present Electronically Signed On 09-22-2020 16:32:14 CDT by Austin Spencer [email or web address] <ELECTRONICALLY SIGNED> By: Austin Spencer MD, [facility] 09/22/20 1632 8 8 Austin Spencer MD, [facility] /EPI
--- NOTE | 2020-09-22 16:33 | EKG ---
[place] [address] ELECTROCARDIOGRAM REPORT Name: MENDELSAMANTA R Room: [address] ADM IN .R.#: [id number] Admission: 09/20/20 Attend Phys: Ankit Agosto, Discharge: Date of : 77 Date of Service: 09/22/20 0145 Report #: [id number] THIS REPORT FOR: //name// [facility] Test Date: 2020-09-22 Test Time: 01:45:16 Pat Name: SAMANTA OGLESBY Department: Room: [address] Gender: M Ignition Specialist: NORBERTO : 1975 Requested By: Oj Mancini Order Number: [id number] Reading MD: Austin Spencer Measurements Intervals [place] Rate: 86 P: 9 [place]: 162 QRS: 11 QRSD: 104 T: 152 QT: 393 QTc: 470 Interpretive Statements Sinus rhythm Abnormal R-wave progression, late transition Abnormal T, consider ischemia, lateral leads ST elev, probable normal early repol pattern Compared to ECG 09/22/2020 01:29:50 T-wave abnormality now present Sinus tachycardia no longer present Intraventricular conduction delay persists Early repolarization no longer present Possible ischemia still present ST (T wave) deviation still present Electronically Signed On 09-22-2020 16:32:58 CDT by Austin Spencer [email or web address] <ELECTRONICALLY SIGNED> By: Austin Spencer MD, [facility] 09/22/20 1632 4 4 Austin Spencer MD, [facility] /EPI
[2020-09-23 00:47] VITALS: BP 102/62
[2020-09-23 04:16] VITALS: BP 110/59
[2020-09-23 05:06] LABS: ALBUMIN 2.8 g/dL (3.4-5.0); CALCIUM 6.7 mg/dL (8.5-10.1); TOTAL BILIRUBIN 0.3 mg/dL (<0.1-1.0); TOTAL PROTEIN 8.3 g/dL (6.4-8.2)
[2020-09-23 06:13] LABS: CREATININE 9.3 mg/dL (0.6-1.3)
[2020-09-23 06:14] LABS: POTASSIUM 6.5 mmol/L (3.5-5.1)
[2020-09-23 08:04] VITALS: BP 118/44
[2020-09-23] MEDS ORDERED: PACERONE 200 M200 M1 PO (08:13)
[2020-09-23] MEDS ORDERED: LASIX 40 MG TAB40 M1 PO (08:13)
[2020-09-23] MEDS ORDERED: TOPROL XL25 MG PO (08:13)
[2020-09-23] MEDS ORDERED: CEFDINIR300 MG PO (08:13)
[2020-09-23 12:20] VITALS: BP 118/44
[2020-09-23 12:34] VITALS: BP 118/44
--- NOTE | 2020-09-24 12:38 | CON ---
[place] [address] CONSULTATION Name: SAMANTA OGLESBY Chanel Room: [address] IN M.R.#: [id number] Admission: 09/20/20 Attend Phys: Ankit Agosto MD Discharge: 09/23/20 Date of : 77 Report #: [id number] THIS REPORT FOR: cc: Austin Genao John E. DO Arakelov, Alexandr V. MD ~ DOC #: [id number] Robel Monk MD DATE OF CONSULTATION: 09/22/2020 REFERRING PHYSICIAN: Ankit Agosto MD REASON FOR CONSULTATION: Assist in providing dialysis. HISTORY OF PRESENT ILLNESS: The patient is a very pleasant 44-year-old gentleman with medical history significant for hypertension, end-stage renal disease, diabetes mellitus type 2, obesity, presents with complaints of shortness of breath. He was found to have some pulmonary congestion and also some mild pericardial effusion. We dialyzed emergently yesterday and he feels better now. PAST SURGICAL HISTORY: As I mentioned earlier. SOCIAL HISTORY: No tobacco or alcohol abuse. FAMILY HISTORY: Negative for renal disease. LABORATORY DATA: Chest x-ray initially showed some cardiomegaly and some vascular congestion. CT scan of the chest showed moderate pericardial effusion with coronary artery calcifications and a small left pleural effusion with left lower lobe atelectasis. PHYSICAL EXAMINATION: GENERAL: Awake, alert, oriented, feels better today. VITAL SIGNS: Blood pressure is 101/52, heart rate 76, afebrile. HEENT: Pupils are round. NECK: Fatty. LUNGS: Decreased air movements at bases. No crackles today. HEART: Distant heart tones. ABDOMEN: Obese, soft. EXTREMITIES: He has left radiocephalic fistula, which is patent. ASSESSMENT: 1. End-stage renal disease, dialysis on Saturday, Saturday, Saturday schedule. 2. Volume overload, [place] [address] CONSULTATION Name: SAMNATA OGLESBY Room: [address] IN ..#: [id number] Admission: 09/20/20 Attend Phys: Ankit Agosto MD Discharge: 09/23/20 Date of : 77 Report #: [id number] 3. Moderate pericardial effusion. 4. Obesity. 5. Diabetes mellitus type 2. 6. Hypertension. PLAN: 1. Dialysis tomorrow. 2. Discussed in details regarding fluid restrictions and make sure that the patient understands that he should not be gaining more than 3 kilos in between dialysis. Discussed also with cardiology service. Robel Monk MD NAMAN <ELECTRONICALLY SIGNED> By: Robel Monk MD 09/24/20 1238 0846 1840MD alis Boyce
== END 2020-09-23 15:35 | disposition home or self-care (01) | DRG 177 ==
LOC: M.ERS 23:29 → M.TBA-ER 09-20 03:22 → M.2W 09-20 12:28
PROVIDERS: Internal Medicine; Internal Medicine Nephrology; Personal Emergency Response Attendant; ADMIT Internal Medicine; ATTEND Internal Medicine
DX: J15.6 Pneumonia due to other Gram-negative bacteria (principal); I50.33 Acute on chronic diastolic (congestive) heart failure; N18.6 End stage renal disease; I13.2 Hypertensive heart and chronic kidney disease with heart failure and with stage 5 chronic kidney disease, or end stage renal disease; I31.3 Pericardial effusion (noninflammatory); I47.1 Supraventricular tachycardia; I20.0 Unstable angina; Z68.42 Body mass index [BMI] 45.0-49.9, adult; Z20.822 Contact with and (suspected) exposure to COVID-19; E11.22 Type 2 diabetes mellitus with diabetic chronic kidney disease; E66.01 Morbid (severe) obesity due to excess calories; H54.61 Unqualified visual loss, right eye, normal vision left eye; I25.9 Chronic ischemic heart disease, unspecified; G47.33 Obstructive sleep apnea (adult) (pediatric); E87.5 Hyperkalemia; E87.70 Fluid overload, unspecified; Z86.14 Personal history of Methicillin resistant Staphylococcus aureus infection; Z79.899 Other long term (current) drug therapy

== ENCOUNTER 2020-09-25 19:57 | Emergency (ER) | payer MEDICARE, BC ==
[~2020-09-25] VITALS: Ht 165.1 cm; Wt 122.5 kg
[~2020-09-25 19:57] MED LIST changes: +CEFDINIR300 MG PO; +HUMALOG100 UNIT/1 SUBQ; +LASIX 40 MG TAB40 M1 PO; +TOPROL XL25 MG PO; +TRESIBA100 UNIT/1
[2020-09-25 21:08] LABS: ABSOLUTE EOSINOPHILS 0.2 thou/uL (0.0-0.7); ABSOLUTE LYMPHOCYTES 1.2 thou/uL (0.8-5.3); ABSOLUTE MONOCYTES 0.8 thou/uL (0.0-1.2); ABSOLUTE NEUTROPHILS 12.1 thou/uL (1.6-8.1); BASOPHILS 0.3 %; CALCIUM 6.6 mg/dL (8.5-10.1); EOSINOPHILS 1.1 %; HEMATOCRIT 36.3 % (42.0-52.0); HEMOGLOBIN 10.9 gm/dL (14.0-18.0); LYMPHOCYTES 8.1 %; MCH 30.4 pg (26.0-34.0); MCHC 30.1 g/dL (28.0-37.0); MCV 101.1 fL (80.0-100.0); MONOCYTES 5.9 %; MPV 7.1 fl. (7.2-11.1); NUCLEATED RBCS 0 /100WBC; PLATELET COUNT* 402 thou/uL (150-400); POLYS 84.6 %; RBC 3.59 mil/uL (4.50-6.00); RDW-CV 17.4 % (10.5-14.5); WBC 14.3 thou/uL (4.0-11.0)
[2020-09-25 21:10] LABS: CREATININE 11.2 mg/dL (0.6-1.3)
[2020-09-25 21:11] LABS: POTASSIUM 6.5 mmol/L (3.5-5.1)
[2020-09-25 21:19] LABS: ALBUMIN 2.8 g/dL (3.4-5.0); MAGNESIUM 2.4 mg/dL (1.8-2.4); TOTAL BILIRUBIN 0.1 mg/dL (<0.1-1.0); TOTAL PROTEIN 8.4 g/dL (6.4-8.2)
[2020-09-26 00:37] VITALS: BP 105/59
--- NOTE | 2020-09-26 11:37 | EKG ---
[place] [address] ELECTROCARDIOGRAM REPORT Name: MENDELSAMANTA R Room: [facility]#: [id number] Admission: 09/25/20 Attend Phys: Discharge: 09/26/20 Date of : 77 Date of Service: 09/25/202011 Report #: [id number] THIS REPORT FOR: //name// [facility] ED Test Date: 2020-09-25 Test Time: 20:12:13 Pat Name: SAMANTA OGLESBY Department: Room: Gender: Building Trades Instructor: KLAUS : 1975 Requested By: Elda Izaguirre Order Number: [id number] MD: Marky Larry Measurements Intervals [place] Rate: 149 P: IN: QRS: 12 QRSD: 116 T: 192 QT: 321 QTc: 506 Interpretive Statements Junctional tachycardia late transition Repol abnrm suggests ischemia, lateral lead Baseline wander in lead(s) V3 Compared to ECG 09/22/2020 01:45:16 Junctional tachycardia now present Sinus rhythm no longer present Possible ischemia still present Electronically Signed On 09-26-2020 11:37:24 CDT by Marky Larry [email or web address] <ELECTRONICALLY SIGNED> By: Marky Larry MD, FAC 09/26/20 1137 11 11 Marky Larry MD, FAC /EPI
--- NOTE | 2020-09-26 11:38 | EKG ---
[place] [address] ELECTROCARDIOGRAM REPORT Name: OGLESBYSAMANTA Chanel Room[facility]#: [id number] Admission: 09/25/20 Attend Phys: Discharge: 09/26/20 Date of : 77 Date of Service: 09/25/202034 Report #: [id number] THIS REPORT FOR: //name// [facility] ED Test Date: 2020-09-25 Test Time: 20:35:28 Pat Name: SAMANTA OGLESBY Department: Room: Gender: Mechanical Oxidizer: KLAUS : 1975 Requested By: Elda Izaguirre Order Number: [id number] Reading MD: Marky Larry Measurements Intervals [place] Rate: 87 P: 47 [place]: 184 QRS: 6 QRSD: 142 T: 180 QT: 387 QTc: 466 Interpretive Statements Sinus rhythm Repol abnrm suggests ischemia, lateral leads Compared to ECG 09/25/2020 20:12:13 Junctional tachycardia no longer present Possible ischemia still present Electronically Signed On 09-26-2020 11:37:48 CDT by Marky Larry [email or web address] <ELECTRONICALLY SIGNED> By: Marky Larry MD, FAC 09/26/20 1137 34 34 Marky Larry MD, [facility] /EPI
== END 2020-09-26 00:37 | disposition home or self-care (01) ==
LOC: M.ERS 19:57
PROVIDERS: Emergency Medicine
DX: E87.5 Hyperkalemia (principal); I47.1 Supraventricular tachycardia; I13.2 Hypertensive heart and chronic kidney disease with heart failure and with stage 5 chronic kidney disease, or end stage renal disease; E11.22 Type 2 diabetes mellitus with diabetic chronic kidney disease; N18.6 End stage renal disease; I50.9 Heart failure, unspecified; E66.01 Morbid (severe) obesity due to excess calories; Z68.41 Body mass index [BMI] 40.0-44.9, adult; Z79.4 Long term (current) use of insulin; Z99.2 Dependence on renal dialysis

== ENCOUNTER 2020-09-27 07:38 | Emergency (ER) | payer MEDICARE, BC ==
[~2020-09-27] VITALS: Ht 165.1 cm; Wt 122.5 kg
[2020-09-27 08:07] LABS: ABSOLUTE BASOPHILS 0.1 thou/uL (0.0-0.2); ABSOLUTE EOSINOPHILS 0.1 thou/uL (0.0-0.7); ABSOLUTE LYMPHOCYTES 1.7 thou/uL (0.8-5.3); ABSOLUTE MONOCYTES 0.9 thou/uL (0.0-1.2); EOSINOPHILS 0.5 %; HEMATOCRIT 29.5 % (42.0-52.0); HEMOGLOBIN 9.7 gm/dL (14.0-18.0); LYMPHOCYTES 15.9 %; MCH 30.7 pg (26.0-34.0); MCHC 32.9 g/dL (28.0-37.0); MONOCYTES 8.6 %; MPV 7.2 fl. (7.2-11.1); NUCLEATED RBCS 0 /100WBC; PLATELET COUNT* 420 thou/uL (150-400); RBC 3.17 mil/uL (4.50-6.00); RDW-CV 16.4 % (10.5-14.5); WBC 10.9 thou/uL (4.0-11.0)
[2020-09-27 08:13] LABS: MCV 93.2 fL (80.0-100.0)
[2020-09-27 08:22] LABS: CALCIUM 7.5 mg/dL (8.5-10.1); POTASSIUM 5.5 mmol/L (3.5-5.1)
[2020-09-27 08:23] LABS: CREATININE 7.1 mg/dL (0.6-1.3)
[2020-09-27 08:35] LABS: ALBUMIN 2.9 g/dL (3.4-5.0); CK-MB MASS 1.3 ng/mL (<0.5-3.6); MAGNESIUM 2.2 mg/dL (1.8-2.4); TOTAL BILIRUBIN 0.4 mg/dL (<0.1-1.0); TOTAL PROTEIN 8.7 g/dL (6.4-8.2)
[2020-09-27 10:00] VITALS: BP 111/84
--- NOTE | 2020-09-27 15:29 | EKG ---
[place] [address] ELECTROCARDIOGRAM REPORT Name: MENDELSAMANTA R [facility] [id number] Admission: 09/27/20 Attend Phys: Discharge: 09/27/20 Date of : 77 Date of Service: 09/27/20 0757 Report #: [id number] THIS REPORT FOR: //name// [facility] ED Test Date: 2020-09-27 Test Time: 07:57:02 Pat Name: SAMANTA OGLESBY Department: Room: Gender: Rip Tailer: FELIX : 1975 Requested By: Simone Schneider Order Number: [id number] MD: Oj Mancini Measurements Intervals [place] Rate: 156 P: 0 [place]: QRS: 28 QRSD: 115 T: 190 QT: 321 QTc: 517 Interpretive Statements Supraventricular tachycardia incomplete right bundle branch block Repol abnrm suggests ischemia, lateral leads Compared to ECG 09/25/2020 20:35:28 Incomplete right bundle-branch block now present Sinus rhythm no longer present Possible ischemia still present Electronically Signed On 09-27-2020 15:28:56 CDT by Oj Mancini [email or web address] <ELECTRONICALLY SIGNED> By: Oj Mancini MD, FACC 09/27/20 1528 0757 0757 Oj Mancini MD, FAC /EPI
--- NOTE | 2020-09-27 15:30 | EKG ---
[place] [address] ELECTROCARDIOGRAM REPORT Name: SAMANTA OGLESBY Room: [facility]#: [id number] Admission: 09/27/20 Attend Phys: Discharge: 09/27/20 Date of : 77 Date of Service: 09/27/20906 Report #: [id number] THIS REPORT FOR: //name// [facility] ED Test Date: 2020-09-27 Test Time: 09:07:46 Pat Name: SAMANTA OGLESBY Department: Room: Gender: M Wheelman: Melania : 1975 Requested By: Simone Schneider Order Number: [id number] MD: Oj Mancini Measurements Intervals [place] Rate: 87 P: 27 ME: 172 QRS: 1 QRSD: 104 T: 167 QT: 382 QTc: 460 Interpretive Statements Sinus rhythm Abnormal R-wave progression, late transition Nonspecific T wave inversion lateral leads Baseline wander in lead(s) V1,V2 Compared to ECG 09/27/2020 07:57:02 Sinus tachycardia no longer present Incomplete right bundle-branch block no longer present Electronically Signed On 09-27-2020 15:29:51 CDT by Oj Mancini [email or web address] <ELECTRONICALLY SIGNED> By: Oj Mancini MD, [facility] 09/27/20 1529 6 6 Oj Mancini MD, [facility] /EPI
== END 2020-09-27 10:00 | disposition home or self-care (01) ==
LOC: M.ERS 07:38
PROVIDERS: Family Medicine
DX: I47.1 Supraventricular tachycardia (principal); E11.9 Type 2 diabetes mellitus without complications; I50.9 Heart failure, unspecified; I11.0 Hypertensive heart disease with heart failure; Z79.82 Long term (current) use of aspirin; Z79.899 Other long term (current) drug therapy

== ENCOUNTER → 2020-12-16 | Outpatient (CLI) | payer MEDICARE, BC ==
--- NOTE | 2021-01-23 22:37 | PF ---
[address] [address] PULMONARY FUNCTION REPORT Name: SAMANTA OGLESBY Room: [facility]#: [id number] Admission: 12/16/20 Attend Phys: SOTERO Dooley Discharge: Date of : 77 Report #: [id number] THIS REPORT FOR: cc: Austin Genao John E. DO Pervez, Adeel MD ~ DATE OF VISIT: 12/16/2020 SLEEP STUDY INDICATIONS FOR SLEEP STUDY: Snoring/daytime sleepiness/fatigue. INTERPRETATION: Total duration of the study is 448 minutes, out of which he was asleep for 286 minutes with an overall sleep efficiency significantly decreased to 64%. Sleep onset initially occurred around 50 minutes of lying down in bed and therefore was significantly delayed. REM onset occurred 68 minutes after sleep onset. N1 sleep duration is 24%, N2 duration is 47%, N3 duration is 23% and REM duration is 5%. This is a split night sleep study. During the initial part of the sleep study, the patient was not on positive airway pressure therapy for 280 minutes. During this time duration, we recorded 141 minutes of sleep time, which in turn included 1 epoch in REM sleep, the rest being non-REM sleep. During the diagnostic portion, multiple sleep-related respiratory events recorded. These included 79 obstructive apneas, 22 mixed apneas and 2 central apneas in addition to 127 hypopneas and 4 respiratory effort-related arousals. The overall apnea-hypopnea index is very high at 88.9. Body position data indicates that the patient was observed asleep in the supine position for only 1.7 minutes during the diagnostic portion of the sleep study. The rest of the time the patient was either on the right or left side. Mean heart rate at this time was 84. Periodic limb movement index was 27.7. Most limb movements; however, were not associated with arousals. Overall, arousal index was 32. There was severe hypoxemia recorded and there were multiple and frequent desaturations. Overall, the patient spent 70 minutes below an O2 saturation of 90%, out of which 33 minutes were spent with an O2 saturation in the 70s. The patient was subsequently placed on CPAP therapy and was observed on CPAP therapy for 168 minutes. This in turn included 15 minutes of REM sleep, the rest being non-REM sleep. The patient's mean heart rate was 75. Periodic limb movement index was higher at 99; however, again most limb movements were not associated with arousals. The patient's arousal index improved from 31.9 during the diagnostic portion to 5.8 when on CPAP. Review of the CPAP titration indicates the patient was titrated beginning with a CPAP pressure of 5 cm of water, gradually increasing it to 10 cm of water. With the administration of a CPAP of 10 cm of water and the patient lying on his sides, there is adequate control of the patient[place] [address] PULMONARY FUNCTION REPORT Name: SAMANTA OGLESBY [id number] Admission: 12/16/20 Attend Phys: SOTERO Dooley Discharge: Date of : 77 Report #: [id number] This includes REM sleep being recorded. However, towards the end of the sleep study, the patient returned to the supine position. At that time, he was in N2 sleep and there were desaturations recorded at this time. IMPRESSION: 1. Severe obstructive sleep apnea with an apnea-hypopnea index of 88.9 with severe nocturnal hypoxemia during the diagnostic portion of the sleep study. The patient spent 33 minutes with an O2 saturation in the 70s and 70 minutes with an O2 saturation in the 80s. 2. With the administration of a CPAP of 10 cm of water, marked improvement is noted in the patient's sleep disordered respirations while he is lying on his sides; however, when he turns supine, the saturations are still noted to occur and therefore optimal control of the patient's sleep disordered respirations is not achieved during the sleep study. Periodic limb movement disorder is also noted as above; however, this does not appear to be the etiology of the patient's sleep disturbances, which is severe obstructive sleep apnea. RECOMMENDATIONS: 1. I recommend proceeding to a repeat sleep study for positive airway pressure titration. If the patient continues to have events on CPAP, then during the repeat sleep study, recommend having a low threshold of switching him over to BiPAP. 2. Recommend weight loss if clinically appropriate. 3. Recommend avoiding driving and other activities requiring vigilance if drowsy. This entire sleep study was reviewed by board certified sleep physician. <ELECTRONICALLY SIGNED> By: Camilo Vargas MD 01/23/21 2237 [id number] 2042Abecky Vargas MD /angelo
== END ==
LOC: M.SLEEPLAB 12-02 20:00
PROVIDERS: ATTEND Registered Nurse
DX: G47.33 Obstructive sleep apnea (adult) (pediatric) (principal)

== ENCOUNTER → 2021-02-23 | Outpatient (CLI) | payer MEDICARE, BC ==
--- NOTE | 2021-03-03 13:25 | PF ---
[address] [address] PULMONARY FUNCTION REPORT Name: OGLESBYSAMANTA Chanel Room: [facility]#: [id number] Admission: 02/23/21 Attend Phys: Camilo Vargas MD Discharge: Date of : 77 Report #: [id number] THIS REPORT FOR: cc: Austin Genao John E. DO Pervez, Adeel MD ~ DATE OF VISIT: 02/23/2021 PULMONARY FUNCTION TEST The FEV1/FVC ratio is normal at 89% with an FVC decreased to 54%. The FEV1 is also decreased to 61%. The FEF 25/75 is normal at 101%. After the administration of a bronchodilator, there is no significant increase in any of these values. The patient's FEV1 is noted to be 2.07 liters. This does not increase after the administration of a bronchodilator. The total lung capacity is decreased to 47% with residual volume decreased to 24%. The DLCO as adjusted for hemoglobin is decreased to 56%. IMPRESSION: 1. Severe restriction with total lung capacity decreased to 47% only. 2. Underlying obstruction, if present, could be masked by restriction. 3. The DLCO as adjusted for hemoglobin is decreased to 56%. <ELECTRONICALLY SIGNED> By: Camilo Vargas MD 03/03/21 1325 2118 2230MD alis Crow
== END ==
LOC: M.PUL 02-16 11:00
PROVIDERS: ATTEND Internal Medicine Critical Care Medicine
DX: R06.02 Shortness of breath (principal)

== ENCOUNTER 2021-03-05 11:01 | Emergency (ER) | payer MEDICARE, BC ==
[~2021-03-05] VITALS: Ht 162.6 cm; Wt 120.2 kg
[2021-03-05] MEDS ORDERED: HYDROCODON-ACE1 EAC7 PO (14:09)
[2021-03-05 14:18] VITALS: BP 99/54
== END 2021-03-05 14:19 | disposition home or self-care (01) ==
LOC: M.ERS 11:01
DX: S82.61XA Displaced fracture of lateral malleolus of right fibula, initial encounter for closed fracture (principal); E11.22 Type 2 diabetes mellitus with diabetic chronic kidney disease; I13.2 Hypertensive heart and chronic kidney disease with heart failure and with stage 5 chronic kidney disease, or end stage renal disease; I50.9 Heart failure, unspecified; N18.6 End stage renal disease; E66.01 Morbid (severe) obesity due to excess calories; R00.2 Palpitations; H54.40 Blindness, one eye, unspecified eye; Z99.2 Dependence on renal dialysis; Z86.14 Personal history of Methicillin resistant Staphylococcus aureus infection; Z68.42 Body mass index [BMI] 45.0-49.9, adult; Z90.89 Acquired absence of other organs; Z79.899 Other long term (current) drug therapy; Z79.2 Long term (current) use of antibiotics; Z79.4 Long term (current) use of insulin; Z79.82 Long term (current) use of aspirin; W10.8XXA Fall (on) (from) other stairs and steps, initial encounter; Y93.89 Activity, other specified; Y92.89 Other specified places as the place of occurrence of the external cause; Y99.8 Other external cause status